=== PATIENT | female | born 1995 | race Caucasian/White ===

== ENCOUNTER 2019-08-21 11:59 | Outpatient (RCR) | payer OTHER, SELFPAY ==
[2019-08-21 13:39] LABS: Hemoglobin 11.8 g/dL (12.0-15.0)
[2019-08-21 13:52] LABS: Glucose 1 Hour PP 50gm Dose 79 mg/dL
[2019-08-21 14:33] LABS: HIV 1/2 Ab P24 Ag Result Negative (Negative)
[2019-08-21 16:07] LABS: Rapid Plasma Reagin Non-Reactive (NonReactive)
[2019-08-24] MEDS: RHO(D) IMMUNE GLOBULIN 300 MCG SYRINGE IM (10:07)
== END 2019-11-19 23:59 | disposition home or self-care (01) ==
LOC: ANHLAB 11:59
PROVIDERS: Visit Provider Advanced Practice Midwife
DX: Z36.89 Encounter for other specified antenatal screening (principal); Z29.13 Encounter for prophylactic Rho(D) immune globulin; O36.0990 Maternal care for other rhesus isoimmunization, unspecified trimester, not applicable or unspecified; Z3A.00 Weeks of gestation of pregnancy not specified
CPT/HCPCS: 36415; 82947; 85014; 85018; 86592; 86703; 86900; 86901; 90384; 96372; G0432; J2790

== ENCOUNTER 2019-09-21 12:41 | Outpatient (CLI) | payer OTHER, SELFPAY ==
--- NOTE | ~2019-09-21 | US_ITS ---
US renal BI DATE: 09/21/2019 13:27 INDICATION: History of kidney calculus. Patient is 32 weeks . TECHNIQUE: Real-time imaging of kidneys and urinary bladder COMPARISON: None FINDINGS: Right kidney measures approximately 10.5 cm length, left kidney approximately 10.7 cm lengt h. No renal mass lesion or hydronephrosis is evident. Bilateral ureteral jets are identified on color flow imaging of the bladder. No bladder mass lesion is evident. IMPRESSION: No significant abnormality Ultrasound is not sensitive for detection of kidney stones. However, there is no evidence of hydronep hrosis and there are bilateral ureteral jets in the urinary bladder. Reviewed, dictated and finalized at [facility]. Reviewed, dictated and finalized at location [facility]. IMPRESSION: No significant abnormality Ultrasound is not sensitive for detection of kidney stones. However, there is n o evidence of hydronephrosis and there are bilateral ureteral jets in the urina ry bladder.
== END 2019-09-21 12:42 | disposition home or self-care (01) ==
LOC: ANHIMG 12:46
PROVIDERS: PCP Advanced Practice Midwife; Visit Provider Advanced Practice Midwife
DX: Z87.442 Personal history of urinary calculi (principal)
CPT/HCPCS: 76775

== ENCOUNTER 2019-10-12 12:58 | Outpatient (CLI) | payer OTHER, SELFPAY ==
[2019-10-12] VITALS (8 sets, daily range): BP systolic 114–124; BP diastolic 75–98; PULSE 92–113; TEMP 37.4; BMI 32.0
[2019-10-12 13:44] LABS: Basophils Absolute Auto 0.1 K/mm3 (0.0-0.1); Basophils Percent Auto 0.5 % (0.2-1.2); Eosinophils Absolute Auto 0.1 K/mm3 (0-0.3); Hematocrit 34.6 % (37.0-47.0); Hemoglobin 10.8 g/dL (12.0-15.0); Immature Granulocyte Absolute 0.08 K/mm3 (0.00-0.031); Immature Granulocyte Percent A 0.6 % (0-0.5); Lymphocytes Percent Auto 12.7 % (18.3-44.2); Mean Corpuscular HGB Conc 31.2 g/dl (32-36); Mean Corpuscular Hemoglobin 26.6 pg (26-34); Mean Corpuscular Volume 85.2 fl (80-100); Mean Platelet Volume 12.6 fl (7.4-10.4); Monocytes Absolute Auto 0.8 K/mm3 (0.1-0.6); Monocytes Percent Auto 6.3 % (2.6-8.5); Neutrophils Absolute Auto 10.5 K/mm3 (1.3-6.7); Neutrophils Percent Auto 78.9 % (45.5-73.1); Platelet Count Result 305 k/mm3 (150-375); Red Blood Count 4.06 M/mm3 (4.2-5.4); Red Cell Distribution Width 13.3 % (11.5-14.5); White Blood Count 13.4 K/mm3 (4.5-10.0)
[2019-10-12 13:49] LABS: Add Urine Microscopic? YES; Appearance Urine Clear (Clear); Bacteria Urine Trace /hpf; Bilirubin Urine Negative (Negative); Blood Urine 2+ (Negative); Color Urine Yellow (Yellow); Glucose Urine UA Negative (Negative); Ketones Urine Negative (Negative); Leukocyte Esterase Ur 1+ LEU/UL (Negative); Mucus Urine Rare /lpf; Nitrate Urine Negative (Negative); Protein Urine Negative (Negative); RBC Urine >75 /hpf (0-2); Specific Grav Ur 1.017 (1.001-1.035); Squamous Epithelial Cell Urine Moderate /hpf (Few)
[2019-10-12 13:50] LABS: Creatinine Urine 113.3 mg/dL; Total Protein Urine Random 13 mg/dL
[2019-10-12 13:55] LABS: Alanine Aminotransferase 10 U/L (4-35); Albumin Level 3.3 g/dL (3.5-5.1); Alkaline Phosphatase 211 U/L (38-126); Aspartate Amino Transferase 19 U/L (14-36); Bilirubin,Total 0.2 mg/dL (0.2-1.3); Blood Urea Nitrogen 6 mg/dL (7-17); Calcium 8.8 mg/dL (8.4-10.2); Carbon Dioxide 20 mmol/L (22-30); Chloride 108 mmol/L (98-107); Estimated Glomerular Filt Rate > 60; Glucose 102 mg/dL (65-105); Potassium 3.7 mmol/L (3.4-5.0); Sodium 135 mmol/L (137-145); Uric Acid 5.3 mg/dL (2.5-7.5)
--- NOTE | 2019-10-12 14:50 | PC.NURSE ---
Essence Ernst CNM informed of BP's, reactive NST, but toco was left on due to contractions ( pt is 35 3/7 wks) and having more than 6 contractions per hour. CNM given lab results including blood in UA, and informed SVE closed, 60-70 % effaced and -1 station. Pt has had an increase in urinary frequency in the last week with some burning a couple of days ago. Orders for discharge received. CNM is calling in Keflex 500 mg po BID x's 5 days and pt to continue taking the Fioricet she has every 6-8 hrs as needed for headache.
== END 2019-10-12 15:10 | disposition home or self-care (01) ==
LOC: ANHOBOP 13:07 → ANHOBPP 13:08
PROVIDERS: PCP Advanced Practice Midwife; Visit Provider Obstetrics & Gynecology
DX: O14.90 Unspecified pre-eclampsia, unspecified trimester (principal); Z3A.00 Weeks of gestation of pregnancy not specified
CPT/HCPCS: 36415; 59025; 80053; 81001; 82570; 84156; 84550; 85025; 87086; 87088; 99199

== ENCOUNTER 2019-11-06 18:06 | Inpatient (IN) | payer OTHER, SELFPAY ==
[2019-11-06] VITALS (16 sets, daily range): BP systolic 84–119; BP diastolic 51–83; PULSE 77–93; TEMP 37.2; BMI 32.3
--- NOTE | 2019-11-06 18:31 | LDADM ---
This patient, Cullen Frias, was admitted to Labor/Delivery/Recovery 105 on 11/06/19 at 18:06. Plans for labor, pain management and were discussed with patient. Patient/family oriented to hospital policies and general routines including ID bracelet, bed and alarms, visiting hours, pain management, procedures, bathroom and other care routines, personal items, smoking policy, room service/diet and guest tray routines, infant security routines, and visiting hours. Patient/Family are encouraged to report perceived risks to care and to ask questions if they do not understand what they are told or what they should do. See OBIX for further documentation.
[2019-11-06 19:07] LABS: Basophils Absolute Auto 0.1 K/mm3 (0.0-0.1); Basophils Percent Auto 0.5 % (0.2-1.2); Eosinophils Absolute Auto 0.1 K/mm3 (0-0.3); Eosinophils Percent Auto 0.8 % (0-4.4); Hemoglobin 10.9 g/dL (12.0-15.0); Immature Granulocyte Absolute 0.06 K/mm3 (0.00-0.031); Immature Granulocyte Percent A 0.5 % (0-0.5); Immature Platelet Fraction Pct 10.1 % (0.9-11.2); Lymphocytes Absolute Auto 1.88 K/mm3 (0.9-3.2); Lymphocytes Percent Auto 14.5 % (18.3-44.2); Mean Corpuscular HGB Conc 31.1 g/dl (32-36); Mean Corpuscular Hemoglobin 25.3 pg (26-34); Mean Corpuscular Volume 81.4 fl (80-100); Mean Platelet Volume 13.5 fl (7.4-10.4); Monocytes Absolute Auto 0.9 K/mm3 (0.1-0.6); Monocytes Percent Auto 6.8 % (2.6-8.5); Neutrophils Percent Auto 76.9 % (45.5-73.1); Platelet Count Result 299 k/mm3 (150-375); Red Cell Distribution Width 14.4 % (11.5-14.5); White Blood Count 12.9 K/mm3 (4.5-10.0)
[2019-11-06] MEDS: DINOPROSTONE 10 MG VAG INSERT VAGINAL (19:16)
[2019-11-07] VITALS (247 sets, daily range): BP systolic 87–138; BP diastolic 50–101; PULSE 61–154; TEMP 36.2–38.2; O2SAT 81–100
[2019-11-07 07:32] LABS: Rapid Plasma Reagin Non-Reactive (NonReactive)
[2019-11-07] MEDS: LACTATED RINGERS 1,000 ML 125 ML IV CONT ×2 (07:34→10:35)
[2019-11-07] MEDS: OXYTOCIN 30 UNITS/NS 500 ML 30 UNITS/500 ML BAG 6 UNITS IV CONT (07:35)
--- NOTE | 2019-11-07 07:52 | WPDOBADMIT ---
Obstetrics - Admit Note Admission Note: record reviewed. No pertinent additions to the history and/or any subsequent changes in the physical findings that are not consistent with the expected course of the were found.EIL at 39 weeks, no complications Additions to the history and/or subsequent changes in the physical findings follow. None.
--- NOTE | 2019-11-07 10:45 | WPDANESEPP ---
Anes - Eval Pre Procedure Procedure: Labor Epidural Date/Time: 11/07/19 10:45 Surgeon: Sita Preop Diagnosis: Labor Pain Pre Op Diagnosis: Induction of Labor Patient Data Age: 24 Gender: F Height: 5 ft 6 in Weight: 91 kg Last Vital Signs Temp 37.3 C 11/07/19 09:30 Pulse 97 11/07/19 10:31 BP 132/85 11/07/19 10:31 Allergies Allergy/AdvReac Type Severity Reaction Status Date / Time No Known Allergies Allergy Verified 10/12/19 15:05 Home Medications Medication Instructions Recorded Confirmed Type acetaminophen 1,000 mg PO Q6H PRN #50 tablet 04/10/19 10/17/19 Rx vtfqhgrmrg-vvsbiireuxbwm-snmq 1 tablet PO Q6H PRN 10/12/19 10/17/19 History Laboratory Tests 11/06/19 11/06/19 11/06/19 18:59 18:59 18:59 WBC 12.9 K/mm3 H K/mm3 (4.5-10.0) RBC 4.30 M/mm3 M/mm3 (4.2-5.4) Hgb 10.9 g/dL L g/dL (12.0-15.0) Hct 35.0 % L % (37.0-47.0) MCV 81.4 fl fl (80-100) MCH 25.3 pg L pg (26-34) MCHC 31.1 g/dl L g/dl (32-36) RDW 14.4 % % (11.5-14.5) Plt Count 299 k/mm3 k/mm3 (150-375) MPV 13.5 fl H fl (7.4-10.4) Immature Gran % (Auto) 0.5 % % (0-0.5) Neut % (Auto) 76.9 % H % (45.5-73.1) Lymph % (Auto) 14.5 % L % (18.3-44.2) [place] % (Auto) 6.8 % % (2.6-8.5) Eos % (Auto) 0.8 % % (0-4.4) Baso % (Auto) 0.5 % % (0.2-1.2) Lymph # (Auto) 1.88 K/mm3 K/mm3 (0.9-3.2) [place] # (Auto) 0.9 K/mm3 H K/mm3 (0.1-0.6) Eos # (Auto) 0.1 K/mm3 K/mm3 (0-0.3) Baso # (Auto) 0.1 K/mm3 K/mm3 (0.0-0.1) Abs Immat Gran (auto) 0.06 K/mm3 H K/mm3 (0.00-0.031) Absolute Neuts (auto) 10.0 K/mm3 H K/mm3 (1.3-6.7) Absolute Nucleated RBC 0.0 K/mm3 K/mm3 (0.0-0.012) Nucleated RBC % 0.0 % % (0.0-0.2) % Immature Plt Fraction 10.1 % % (0.9-11.2) RPR Non-reactive (NonReactive) Blood Type O Negative Antibody Screen Negative : gestational age (DANNY 11/13/19) Patient hx anesthesia problems: none Family hx anesthesia problems: none PMFSH Past Medical History Medical History Anxiety Bronchitis Fracture rt shoulder, lt elbow Migraines Rib fracture Surgical History Surgical History H/O hernia repair with stent History of kidney surgery kidney reflux surgery Family History Family History Sibling Hypertension Heart disease Asthma Diabetes mellitus Father Hypertension Social History Social History Smoking status: Never smoker Second hand tobacco smoke exposure: No Alcohol intake: never Substance use: never Gender identity (if verbalized by the patient): Female Spiritual care concerns: No Exam Day of Procedure 11/07/19 10:45 Patient weight: normal Heart: regular rate and rhythm Lungs: normal air movement Airway: Mallampati scale class II Neurological: alert and oriented
--- NOTE | 2019-11-07 12:37 | PM.OBPNLAB ---
Pain Control Date/time seen: 11/07/19 12:37 AROM, minimal fluid, IUPC and FSE placed, blood in IUPC catheter, easily flushed, FHR category 1
[2019-11-08] VITALS (25 sets, daily range): BP systolic 51–129; BP diastolic 43–89; PULSE 80–137; RESP 16–18; TEMP 37.1–38.4; O2SAT 98–100
[2019-11-08] MEDS: MISOPROSTOL 200 MCG TABLET 1000 MCG (02:06)
--- NOTE | 2019-11-08 02:16 | PM.OBPRVD ---
OB - Delivery Note Procedure Delivery date: 11/08/19 Procedure: vaginal delivery Induction method: AROM and per pitocin protocol Delivery monitor: external FHT, external uterine, internal FHT and internal uterine Route of delivery: Laceration description: None Estimated blood loss (mL): 210 Anesthesia type: Epidural Disposition: other () Narrative: oozing on pelvic floor, right wall, not able to suture, hemaderm placed and hemostatic, mother and baby in stable condition [place] Baby Date of : 11/08/19 Time of : 01:56 Weeks of gestation at delivery: 39 Infant gender: Male Weight (pounds): 7 Weight (ounces): 14 presentation: vertex position: Left Occiput Anterior Placenta delivery description: Spontaneous cord vessel description: 3 Vessels, Nuchal Cord, Reduced, Clamped/Cut and Around Extremity x1 score one minute: 8 score five minutes: 9
[2019-11-08] MEDS: OXYTOCIN 30 UNITS/NS 500 ML 30 UNITS/500 ML BAG 125 UNITS IV CONT (02:30)
[2019-11-08] MEDS: IBUPROFEN 600 MG TABLET PO ×3 (02:33→18:53)
[2019-11-08] MEDS: WITCH HAZEL 40 PADS 1 PAD TOPICAL (04:11)
[2019-11-08] MEDS: BENZOCAINE 20% AER SPR (*SP) 56 GM CAN 1 SPRAY TOPICAL (04:11)
--- NOTE | 2019-11-08 04:41 | OBPPTRN ---
Patient transferred to post room #279 via wheelchair. Support person present. Oriented to unit, room, information board, rooming in, admission packet and security measures. Patient verbalizes understanding. with patient.
[2019-11-08] MEDS: ACETAMINOPHEN 325 MG TABLET 650 MG PO ×2 (07:31→16:32)
--- NOTE | 2019-11-08 08:10 | PC.NURSE ---
Consulted with patient, mother states is sleepy and requires the nipple shield to latch for all feedings. Reviewed infant feeding cues, frequencies, duration of feedings, feeding elimination flow sheet, and signs of adequate intake. Demonstrated stimulation techniques to wake for feeding. Assisted with infant to breast. Reviewed positioning/alignment football, holding breast in C hold and guided asymmetrical latch on. Discussed nipple shield precautions and possible complications. Instructions given on application and cleaning of shield.Patient able to return demonstration on proper application of shield. Discussed the need to initiate pumping if infant continues to nurse with the shield. Patient verbalizes understanding. Infant was able to latch correctly. Infant nursed sleepily with a few bursts and occasional swallowing noted. Mother needs minimal stimulation and leaking good amounts of colostrum. When infant switched to other breast shield filled with colostrum. Advised to stimulate to keep infant awake and nursing for increased intake and maintaining deep latch. Reviewed signs of a correct latch, effective nursing and suck swallow ratio. was able to maintain latch without discomfort to mother. Nipple care reviewed. Instructed mother to call out for RN assistance if she is unable to latch for feeding or she has discomfort with nursing. Instructed feeding should be initiated three hours from start of last feeding or if feeding cues are noted before. Mother voiced understanding of information shared.
--- NOTE | 2019-11-08 09:16 | WPDANLDPN2 ---
Anes-Prog Note L&D Date/Time: 11/08/19 09:16 Comfortable throughout: labor and delivery Neuraxial method: epidural Epidural/Spinal procedure site: clean & non-tender Neuro status: Neuro function grossly intact. Respiratory status: normal Airway patency: baseline Mental status: baseline Post-Op hydration status: normal Vital Signs: Last Vital Signs Temp 99.2 F 11/08/19 06:50 Pulse 104 H 11/08/19 06:50 Resp 18 11/08/19 06:50 BP 127/78 11/08/19 06:50 Pulse Ox 98 11/08/19 06:50 I/O: Intake & Output 11/07/19 11/08/19 11/08/19 23:59 07:59 15:59 Intake Total 100 1500 Output Total 124 Balance 100 1376 Post-procedural complaints: none Patient feedback: Patient satisfied with anesthetic care.
[2019-11-08] MEDS: MULTIVIT/MIN/PREN/FOL AC/IRON TABLET 1 TAB PO (12:25)
--- NOTE | 2019-11-08 13:20 | PC.NURSE ---
Mother called out for assist with feeding. Infant continues with sleepiness not waking for feedings. Assisted with infant to breast. Reviewed positioning/alignment football, holding breast in C hold and guided asymmetrical latch on. Infant was able to latch correctly. nursed sleepily with a few bursts and occasional swallowing noted. Mother needs minimal stimulation and leaking good amounts of colostrum. When switched to other breast shield filled with colostrum. Advised to stimulate to keep infant awake and nursing for increased intake and maintaining deep latch. Reviewed signs of a correct latch, effective nursing and suck swallow ratio. Infant was able to maintain latch without discomfort to mother. Nipple care reviewed. Instructed mother to call out for RN assistance if she is unable to latch infant for feeding or she has discomfort with nursing. Instructed feeding should be initiated three hours from start of last feeding or if feeding cues are noted before. Mother voiced understanding of information shared.
--- NOTE | 2019-11-08 15:30 | PC.NURSE ---
Mother called out and states she would like to supplement. Suggested mother continue to put to breast each feeding, then supplement and pump.
[2019-11-08] MEDS: DOCUSATE SODIUM 100 MG CAPSULE PO (16:33)
--- NOTE | 2019-11-08 16:42 | PC.NURSE ---
Breast pump provided due to her wishes to pump and bottle feed. Instructions given on breast pump care and usage, pumping schedule, nipple care, and collection and storage of breast milk. Encouraged [id number], breast massage and manual expression to stimulate supply. Assessed patient for correct flange size, placement and draw. Patient verbalizes and demonstrates understanding of instructions.
[2019-11-09] MEDS: IBUPROFEN 600 MG TABLET PO (03:46)
[2019-11-09 04:48] LABS: Hematocrit 29.7 % (37.0-47.0); Hemoglobin 9.3 g/dL (12.0-15.0)
[2019-11-09 07:35] VITALS: BP 118/85; PULSE 74; RESP 16; TEMP 36.5; O2SAT 99
--- NOTE | 2019-11-09 07:55 | PM.OBDSVD ---
OB - DS: Summary OB Procedures : None OB Procedures Intrapartum: Spontaneous Vag Delivery OB Procedures: : None Time Spent with Patient Time attestation: Total time spent providing and/or coordinating discharge services: Exam Const: General: comfortable Resp: Effort & Inspection: normal respiratory effort Psych: Appearance: grossly normal Affect: normal affect DS: Data Data Completed and Pending Labs on day of discharge: Labs from last 24 hours 11/09/19 11/09/19 03:41 03:41 Hgb 9.3 L Hct 29.7 L Blood Type O Negative Antibody Screen Negative Screen Pending Baby's Blood Type O pos Baby's SHILO Negative Doses of RhIg Required Pending Discharge Plan Discharge Attending physician on discharge: Ritchie Buckner Discharging Clinician: Rossy Ernst Patient Disposition: Home, Self-Care Activity: pelvic rest Diet: regular Patient Instructions: Antibiotic Form Stand Alone Forms: General Discharge Information Follow-up/Referrals: Rossy Ernst CNM [Primary Care Provider] - 4 Weeks Discharge Medications: New ibuprofen 600 mg Tablet 600 mg PO Q6H PRN (Reason: Cramping) Qty: 30 RF: 0 Continued acetaminophen 500 mg tablet 1,000 mg PO Q6H PRN (Reason: pain) Qty: 50 RF: 0 jsyynibsoc-ecvrynggobqwb-zdma 50-325-40 mg tablet 1 tablet PO Q6H PRN (Reason: Headache) RF: 0 Date of admission: 11/06/19 18:06 Primary Care Provider: Rossy Ernst Admitting Provider: Ritchie Buckner Attending physician on admission: Ritchie Buckner
--- NOTE | 2019-11-09 09:00 | PC.NURSE ---
Consult with pt., mother reports she has chosen to pump and bottle feed due difficulties with latching and not effectively nursing. Stressed regular pumping of every three hours for 15-20 min. until milk is established, then follow feeding schedule. Mother is feeding as required and waking infant to feed if needed. Infant is currently meeting outcomes for weight, output, jaundice and feeding frequencies. Mother states she feels confident to continue feeding choice of pump and bottle feeding at home. Reviewed transition to breast milk, signs of adequate intake, and engorgement/relief. Instructed to call ICP if intake/output less than required. Reviewed regular medications mother is taking. Information provided per Maida. Reviewed community resources on the [facility] website and in the Mom/Baby guide. Information on outpatient services provided. Mother has no further questions at this time. Assisted mother with a pump thru her insurance.
[2019-11-09] MEDS: POLYSACCHARIDE IRON COMPLEX 150 MG CAPSULE PO (09:28)
[2019-11-09] MEDS: DOCUSATE SODIUM 100 MG CAPSULE PO (09:28)
[2019-11-09] MEDS: MULTIVIT/MIN/PREN/FOL AC/IRON TABLET 1 TAB PO (09:28)
--- NOTE | 2019-11-09 10:11 | WPDANLDPN2 ---
Anes-Prog Note L&D Date/Time: 11/09/19 10:11 Comfortable throughout: labor and delivery Neuraxial method: epidural Epidural/Spinal procedure site: clean & non-tender Neuro status: Neuro function grossly intact. Respiratory status: normal Airway patency: baseline Mental status: baseline Post-Op hydration status: normal Vital Signs: Last Vital Signs Temp 36.5 C 11/09/19 07:35 Pulse 74 11/09/19 07:35 Resp 16 11/09/19 07:35 BP 118/85 11/09/19 07:35 Pulse Ox 99 11/09/19 07:35 Pain score (VAS): 0/10. patient resting in bed at time of assessment, appears comfortable. Post-procedural complaints: none Patient feedback: Patient satisfied with anesthetic care.
[2019-11-09] MEDS: RHO(D) IMMUNE GLOBULIN 300 MCG SYRINGE IM (11:12)
--- NOTE | 2019-11-09 11:30 | PC.NURSE ---
Patient instructed to view the discharge video Mother & Baby Care, The First Two Weeks online. Patient was given the opportunity and encouraged to ask questions. Patient verbalized understanding of information shared and has been given the mother/baby guide for home reference.
[2019-11-12 11:07] VITALS: BP 127/94; PULSE 89; RESP 20; TEMP 36.9; O2SAT 100
== END 2019-11-09 13:05 | disposition home or self-care (01) | DRG 560 ==
LOC: ANHLDR 18:11 → ANHOB2 11-08 04:42
PROVIDERS: Admitting Provider Obstetrics & Gynecology; PCP Advanced Practice Midwife; Visit Provider Obstetrics & Gynecology
DX: O76 Abnormality in fetal heart rate and rhythm complicating labor and delivery (principal); O75.2 Pyrexia during labor, not elsewhere classified; O69.82X0 Labor and delivery complicated by other cord entanglement, without compression, not applicable or unspecified; Z3A.39 39 weeks gestation of pregnancy; Z37.0 Single live birth
CPT/HCPCS: 36415; 85014; 85018; 85025; 85055; 85461; 86592; 86850; 86900; 86901; 90384; A9270; J0131; J2590; J2790; J2795; J3010; J7120

== ENCOUNTER 2019-11-12 11:59 | Observation (INO) | payer OTHER, SELFPAY ==
[2019-11-12] VITALS (8 sets, daily range): BP systolic 98–136; BP diastolic 77–91; PULSE 77–105
--- NOTE | 2019-11-12 11:58 | OBADM ---
This patient, Cullen Frias, admitted to the OB room OB Post 115 for observation. Patient/family oriented to hospital policies and general routines including ID bracelet, bed and alarms, visiting hours, pain management, procedures, bathroom and other care routines, personal items, smoking policy, room service/diet, and visiting hours. Patient/Family are encouraged to report perceived risks to care and to ask questions if they do not understand what they are told or what they should do.
--- NOTE | 2019-11-12 12:40 | PC.NURSE ---
Called Krysta Delgado CNM with pt status. Lab results and BPs given. Orders received to observe and recheck labs at 1800 and call with results.
[2019-11-12 12:58] LABS: Basophils Absolute Auto 0.1 K/mm3 (0.0-0.1); Basophils Percent Auto 0.5 % (0.2-1.2); Eosinophils Absolute Auto 0.3 K/mm3 (0-0.3); Eosinophils Percent Auto 1.8 % (0-4.4); Hematocrit 34.1 % (37.0-47.0); Hemoglobin 10.3 g/dL (12.0-15.0); Immature Granulocyte Absolute 0.12 K/mm3 (0.00-0.031); Immature Granulocyte Percent A 0.8 % (0-0.5); Mean Corpuscular HGB Conc 30.2 g/dl (32-36); Mean Corpuscular Hemoglobin 25.2 pg (26-34); Mean Corpuscular Volume 83.6 fl (80-100); Monocytes Absolute Auto 0.8 K/mm3 (0.1-0.6); Monocytes Percent Auto 5.6 % (2.6-8.5); Neutrophils Absolute Auto 12.5 K/mm3 (1.3-6.7); Neutrophils Percent Auto 83.3 % (45.5-73.1); Platelet Count Result 290 k/mm3 (150-375); Red Blood Count 4.08 M/mm3 (4.2-5.4); Red Cell Distribution Width 15.1 % (11.5-14.5)
[2019-11-12 13:08] LABS: Alanine Aminotransferase 44 U/L (4-35); Albumin Level 3.1 g/dL (3.5-5.1); Alkaline Phosphatase 190 U/L (38-126); Aspartate Amino Transferase 43 U/L (14-36); Bilirubin,Total 0.6 mg/dL (0.2-1.3); Blood Urea Nitrogen 8 mg/dL (7-17); Calcium 8.6 mg/dL (8.4-10.2); Carbon Dioxide 25 mmol/L (22-30); Chloride 108 mmol/L (98-107); Estimated Glomerular Filt Rate > 60; Glucose 89 mg/dL (65-105); Sodium 136 mmol/L (137-145); Uric Acid 6.4 mg/dL (2.5-7.5)
--- NOTE | 2019-11-12 16:35 | PC.NURSE ---
Called Krysta Delgado CNM to request pain meds for headache. Orders received.
[2019-11-12] MEDS: ACETAMINOPHEN 500 MG TABLET 1000 MG PO (16:47)
[2019-11-12 18:20] LABS: Mean Platelet Volume 12.3 fl (7.4-10.4); Platelet Count Result 296 k/mm3 (150-375)
[2019-11-12 18:32] LABS: Alanine Aminotransferase 41 U/L (4-35); Alkaline Phosphatase 170 U/L (38-126); Aspartate Amino Transferase 39 U/L (14-36); Bilirubin,Total 0.6 mg/dL (0.2-1.3); Blood Urea Nitrogen 8 mg/dL (7-17); Calcium 8.3 mg/dL (8.4-10.2); Carbon Dioxide 27 mmol/L (22-30); Chloride 108 mmol/L (98-107); Estimated Glomerular Filt Rate > 60; Glucose 91 mg/dL (65-105); Potassium 3.6 mmol/L (3.4-5.0); Sodium 139 mmol/L (137-145); Uric Acid 6.7 mg/dL (2.5-7.5)
--- NOTE | 2019-12-07 12:04 | P.PNOB_ITS ---
OB - Triage/Final Diagnosis Evaluation Laboratory results: Laboratory Tests 11/12/19 11/12/19 11/12/19 12:41 12:41 18:15 WBC 15.0 H RBC 4.08 L Hgb 10.3 L Hct 34.1 L MCV 83.6 MCH 25.2 L MCHC 30.2 L RDW 15.1 H Plt Count 290 296 MPV 12.0 H 12.3 H Immature Gran % (Auto) 0.8 H Neut % (Auto) 83.3 H Lymph % (Auto) 8.0 L [place] % (Auto) 5.6 Eos % (Auto) 1.8 Baso % (Auto) 0.5 Lymph # (Auto) 1.20 [place] # (Auto) 0.8 H Eos # (Auto) 0.3 Baso # (Auto) 0.1 Abs Immat Gran (auto) 0.12 H Absolute Neuts (auto) 12.5 H Absolute Nucleated RBC 0.0 Nucleated RBC % 0.0 Sodium 136 L Potassium 4.0 Chloride 108 H Carbon Dioxide 25 BUN 8 Creatinine 0.60 L Estim Creat Clear Calc Not Reportable Estimated GFR > 60 Glucose 89 Uric Acid 6.4 Calcium 8.6 Total Bilirubin 0.6 AST 43 H ALT 44 H Alkaline Phosphatase 190 H Total Protein 6.0 L Albumin 3.1 L 11/12/19 18:15 WBC RBC Hgb Hct MCV MCH MCHC RDW Plt Count MPV Immature Gran % (Auto) Neut % (Auto) Lymph % (Auto) [place] % (Auto) Eos % (Auto) Baso % (Auto) Lymph # (Auto) [place] # (Auto) Eos # (Auto) Baso # (Auto) Abs Immat Gran (auto) Absolute Neuts (auto) Absolute Nucleated RBC Nucleated RBC % Sodium 139 Potassium 3.6 Chloride 108 H Carbon Dioxide 27 BUN 8 Creatinine 0.60 L Estim Creat Clear Calc Not Reportable Estimated GFR > 60 Glucose 91 Uric Acid 6.7 Calcium 8.3 L Total Bilirubin 0.6 AST 39 H ALT 41 H Alkaline Phosphatase 170 H Total Protein 6.0 L Albumin 3.0 L Final Diagnosis (1) Headache: Code(s): R51 - Headache Status: Acute
== END 2019-11-12 19:00 | disposition home or self-care (01) ==
LOC: ANHOBOP 12:14 → ANHOBPP 12:15 → ANHOBOP 15:49 → ANHOBPP 15:49
PROVIDERS: Advanced Practice Midwife; Admitting Provider Obstetrics & Gynecology; PCP Advanced Practice Midwife; Visit Provider Obstetrics & Gynecology
DX: R51 Headache (principal)
CPT/HCPCS: 36415; 80053; 84550; 85025; 85049; A9270; G0378; G0379

== ENCOUNTER 2020-05-14 15:11 | Emergency (ER) | payer OTHER, SELFPAY ==
[2020-05-14 15:14] VITALS: BP 137/85; PULSE 106; RESP 18; TEMP 36.5; O2SAT 100
--- NOTE | 2020-05-14 15:41 | ED.FEMALEGU ---
HPI - Female Genitourinary General Chief complaint: Urogenital-Female Stated complaint: kidney stone/ Time Seen by Provider: 05/14/20 15:33 Source: patient Mode of arrival: ambulatory Limitations: no limitations History of Present Illness HPI Narrative: 24 years old white female, 13 weeks presents with left lower quadrant pain radiating to left lower back, patient is telling me that renal ultrasound was done at her [employer] office prior to coming to the emergency room which showed large kidney stone in the urinary bladder. Currently patient feeling much better. Patient denies any fever, chills, nausea, vomiting or urinary symptoms. Patient reported having vaginal discharge which is normal during her . Renal ultrasound which was done at Dr. Herring office today showed bladder stone. Unable to GET access TO THE image or to the report. Related Data Home Medications Medication Instructions Recorded Confirmed No Home Medications 05/14/20 05/14/20 Allergies Allergy/AdvReac Type Severity Reaction Status Date / Time No Known Allergies Allergy Verified 05/14/20 15:33 Review of Systems Review of Systems: Narrative: CONSTITUTIONAL: Denies fever, chills, or sweats. EYES: Denies visual changes, redness, or discharge. ENT: Denies rhinorrhea, congestion, sore throat, or otalgia. CARDIOVASCULAR: Denies chest pain, palpitations, or edema. RESPIRATORY: Denies cough or dyspnea. GASTROINTESTINAL: Left lower quadrant pain GENITOURINARY: Denies dysuria or hematuria. SKIN: Denies rash or itching. MUSCULOSKELETAL: Denies back pain, joint pain, or myalgia. NEUROLOGIC: Denies headache, numbness, or weakness. PSYCHIATRIC: Denies anxiety or depression. [facility] Past Medical History Medical History (Updated 05/14/20 @ 16:47 by Dalila Mooney MD) Anxiety Bronchitis Fracture rt shoulder, lt elbow Migraines Rib fracture Surgical History Surgical History H/O hernia repair with stent History of kidney surgery kidney reflux surgery Family History Family History Sibling Hypertension Heart disease Asthma Diabetes mellitus Father Hypertension Social History Social History Smoking status: Never smoker Second hand tobacco smoke exposure: No Alcohol intake: never Substance use: never Gender identity (if verbalized by the patient): Female Spiritual care concerns: No Exam Narrative: Exam Narrative: General appearance: Well-developed, well-nourished Skin: Normal color Head: Normocephalic, nontraumatic Eyes: Clear conjunctiva ENT: Oropharynx normal, ears normal, nose normal Neck: Supple, nontender Chest and respiratory: Airway patent, no respiratory distress, no accessory muscle use Heart: Regular rate/rhythm Abdomen: Soft, mild tenderness left lower quadrant. No organomegaly, quiet bowel sounds Vascular: Normal peripheral pulses, normal capillary refill. Musculoskeletal: Normal range of motion, nontender back Neurologic: Alert and oriented ?3, [employer] is normal as tested, no gross motor deficit Course Course Emergency Course: Stable Consultations Consultation #1: DR HERRING. Outpatient follow-up Unable to get hold of the ultrasound reports which was done today. Date: 05/14/20 Time: 16:48 Consultation #2: DR MAN Patient can go home and follow-up with Dr. Cummings as outpatient. Nothing serious or urgent at this time. Date: 05/14/20 Time: 18:05 Vital Signs Vital signs: Vital Signs Temperature 36.5 C 05/14/20 15:14 Pulse Rate 106 H 05/14/20 15
[2020-05-14 16:02] LABS: Basophils Percent Auto 0.3 % (0.2-1.2); Eosinophils Absolute Auto 0.2 K/mm3 (0-0.3); Eosinophils Percent Auto 1.4 % (0-4.4); Hemoglobin 13.1 g/dL (12.0-15.0); Immature Granulocyte Absolute 0.05 K/mm3 (0.00-0.031); Immature Granulocyte Percent A 0.3 % (0-0.5); Lymphocytes Absolute Auto 2.37 K/mm3 (0.9-3.2); Lymphocytes Percent Auto 16.5 % (18.3-44.2); Mean Corpuscular HGB Conc 32.8 g/dl (32-36); Mean Corpuscular Hemoglobin 27.9 pg (26-34); Mean Corpuscular Volume 85.1 fl (80-100); Mean Platelet Volume 11.8 fl (7.4-10.4); Monocytes Absolute Auto 0.8 K/mm3 (0.1-0.6); Monocytes Percent Auto 5.8 % (2.6-8.5); Neutrophils Absolute Auto 10.9 K/mm3 (1.3-6.7); Neutrophils Percent Auto 75.7 % (45.5-73.1); Platelet Count Result 340 k/mm3 (150-375); Red Cell Distribution Width 13.8 % (11.5-14.5); White Blood Count 14.4 K/mm3 (4.5-10.0)
[2020-05-14 16:12] LABS: Add Urine Microscopic? YES; Amorphous Sediment Urine Few; Appearance Urine Cloudy (Clear); Bacteria Urine Trace /hpf; Bilirubin Urine Negative (Negative); Blood Urine Negative (Negative); Color Urine Yellow (Yellow); Glucose Urine UA Negative (Negative); Ketones Urine Negative (Negative); Leukocyte Esterase Ur Trace LEU/UL (Negative); Mucus Urine Rare /lpf; Nitrate Urine Negative (Negative); Protein Urine Negative (Negative); Specific Grav Ur 1.016 (1.001-1.035); Squamous Epithelial Cell Urine Occasional /hpf (Few); WBC Urine 0-3 /hpf
[2020-05-14 16:13] LABS: Anion Gap 6 mmol/L (8-16); Blood Urea Nitrogen 9 mg/dL (7-17); Calcium 9.5 mg/dL (8.4-10.2); Carbon Dioxide 25 mmol/L (22-30); Chloride 104 mmol/L (98-107); Estimated CRCL calculation 132 ml/min; Estimated Glomerular Filt Rate > 60; Glucose 94 mg/dL (65-105); Potassium 3.8 mmol/L (3.4-5.0); Sodium 135 mmol/L (137-145)
--- NOTE | 2020-05-14 16:59 | PC.NURSE ---
Attempting to locate ultrasound report from Dr. Buckner's office. Radiology unable to locate report or reading. Preparing to contact Dr. Buckner.
--- NOTE | 2020-05-14 17:45 | PC.NURSE ---
Awaiting Dr. Buckner return call, and also contacting urology. Pt updated.
[2020-05-14 18:25] VITALS: BP 129/86; PULSE 114; RESP 18; O2SAT 99
== END 2020-05-14 18:27 | disposition home or self-care (01) ==
PROVIDERS: Emergency Provider Emergency Medicine
DX: O26.892 Other specified pregnancy related conditions, second trimester (principal); R10.32 Left lower quadrant pain; Z3A.13 13 weeks gestation of pregnancy
CPT/HCPCS: 36415; 80048; 81001; 85025; 99283

== ENCOUNTER 2020-05-15 17:27 | Outpatient (CLI) | payer OTHER, SELFPAY ==
--- NOTE | ~2020-05-15 | US_ITS ---
EXAMINATION: US retroperitoneal comp EXAM DATE: 05/15/2020 18:07 INDICATION: Left lower quadrant/flank pain. TECHNIQUE: Multiple grayscale and Doppler images of the kidneys were obtained (by a technologist who performed the scan) and subsequently reviewed. Comparison is made to prior examination from 09/21/2019 . FINDINGS: Right kidney: There is normal contour and echogenicity. It measures 11.2 x 4.4 x 5.1 centimeters. T here are no focal renal lesions identified. There is no hydronephrosis. Left kidney: There is normal contour and echogenicity. It measures 10.8 x 5.4 x 5.0 centimeters. [place] pect nonobstructing kidney stone measuring 6 mm There is no hydronephrosis. Bladder unremarkable. Bilateral ureteral jets confirmed. IMPRESSION: 1. Probable left nephrolithiasis. 2. No hydronephrosis. Reviewed, dictated and finalized at location G. GER PMO
== END 2020-05-15 17:28 | disposition home or self-care (01) ==
PROVIDERS: Visit Provider Advanced Practice Midwife
DX: R10.32 Left lower quadrant pain (principal)
CPT/HCPCS: 76770

== ENCOUNTER 2020-08-29 09:00 | Outpatient (RCR) | payer OTHER, SELFPAY ==
[2020-08-27 15:52] LABS: Hematocrit 34.1 % (37.0-47.0); Hemoglobin 10.4 g/dL (12.0-15.0)
[2020-08-27 16:05] LABS: Glucose 1 Hour PP 50gm Dose 85 mg/dL
[2020-08-27 16:46] LABS: HIV 1/2 Ab P24 Ag Result Negative (Negative)
[2020-08-28 11:58] LABS: Rapid Plasma Reagin Non-Reactive (NonReactive)
[2020-08-29] MEDS: RHO(D) IMMUNE GLOBULIN 300 MCG/2 ML SYRINGE IM (09:22)
== END 2020-11-25 23:59 | disposition home or self-care (01) ==
LOC: ANHLAB 09:00
PROVIDERS: Visit Provider Advanced Practice Midwife
DX: Z29.13 Encounter for prophylactic Rho(D) immune globulin (principal); Z11.4 Encounter for screening for human immunodeficiency virus [HIV]; O36.0130 Maternal care for anti-D [Rh] antibodies, third trimester, not applicable or unspecified; Z3A.00 Weeks of gestation of pregnancy not specified
CPT/HCPCS: 36415; 82947; 85014; 85018; 85461; 86592; 86703; 90384; 96372; G0432; J2790

== ENCOUNTER 2020-09-16 18:10 | Outpatient (CLI) | payer OTHER, SELFPAY ==
[2020-09-16 18:45] VITALS: BP 106/69; PULSE 92
[2020-09-16 19:00] VITALS: BP 106/69; BP 113/73; PULSE 92; PULSE 96
[2020-09-16 19:20] VITALS: BP 106/69; PULSE 92
[2020-09-16 19:42] VITALS: BMI 28.8
[2020-09-16] MEDS: PROCHLORPERAZINE MALEATE 5 MG TABLET 10 MG PO (20:22)
[2020-09-16] MEDS: ACETAMINOPHEN 500 MG TABLET PO (20:24)
== END 2020-09-16 22:05 | disposition home or self-care (01) ==
LOC: ANHOBOP 18:15 → ANHOBPP 18:16
PROVIDERS: Visit Provider Obstetrics & Gynecology
DX: O13.9 Gestational [pregnancy-induced] hypertension without significant proteinuria, unspecified trimester (principal); Z3A.00 Weeks of gestation of pregnancy not specified
CPT/HCPCS: 59025; 99199; A9270

== ENCOUNTER 2020-09-25 08:18 | Observation (INO) | payer OTHER, SELFPAY ==
[2020-09-25 08:32] VITALS: BP 122/75; PULSE 93
[2020-09-25] MEDS: LACTATED RINGERS 1,000 ML 1000 ML IV CONT (09:24)
[2020-09-25] MEDS: MEPERIDINE HCL INJ (*CRX) 50 MG/ML AMPUL 12.5 MG IV PUSH (09:29)
[2020-09-25] MEDS: diphenhydrAMINE HCl INJ 50 MG/ML VIAL 25 MG IV PUSH (09:30)
[2020-09-25] MEDS: METOCLOPRAMIDE HCL INJ 10 MG/2 ML VIAL IV PUSH (09:34)
--- NOTE | 2020-09-25 10:26 | PC.NURSE ---
0830- on unit, informed pt came in for migraine. Pt states she took 2 fioricet and a flexeril last night and woke up feeling worse this morning. Pt is rating her migraine a 10/10. Orders received.
--- NOTE | 2020-09-25 12:33 | PC.NURSE ---
Pt states her migraine pain is down to a 6 from a 10. Pt wants to eat and see if that helps her head before I call
--- NOTE | 2020-09-25 13:42 | PC.NURSE ---
1315-Pt ate lunch and states her head is feeling better and is rating her pain 4 now. She asked for a fioricet and states she wants to go home.
--- NOTE | 2020-10-26 20:09 | PM.OBTRLD ---
OB - Triage/Final Diagnosis Visit Information Comments/Additional reasons for admission: I have assessed the risk for this patient, Cullen Frias, and determined that she would benefit from observation care. Final Diagnosis (1) Headache: Code(s): R51 - Headache Status: Acute
== END 2020-09-25 13:30 | disposition home or self-care (01) ==
LOC: ANHOBOP 08:20 → ANHOBPP 13:21
PROVIDERS: Admitting Provider Obstetrics & Gynecology; Referring Provider Obstetrics & Gynecology; Visit Provider Obstetrics & Gynecology
DX: O26.893 Other specified pregnancy related conditions, third trimester (principal); R51.9 Headache, unspecified; Z3A.33 33 weeks gestation of pregnancy
CPT/HCPCS: 96361; 96374; 96375; 99199; A9270; G0378; G0379; J1200; J2175; J2765; J7120

== ENCOUNTER 2020-10-08 12:03 | Outpatient (CLI) | payer OTHER, SELFPAY ==
[2020-10-08 12:26] VITALS: BP 110/79; PULSE 104; PULSE 106
[2020-10-08 12:30] VITALS: BP 113/83; PULSE 102
--- NOTE | 2020-10-08 12:38 | PC.NURSE ---
Essence Ernst CNM informed of pt's headache since last night. Pt took 1 Fioricet at 0100 this morning and 500 mg Tylenol and FLexeril 5 mg at 0830 this am. Informed of BP's. Order for Fioricet received. CNM doesn't want any labs sent. CNM also informed that pt isn't taking her Ampicillin for a UTI regularly either- her last dose was yesterday morning and she has not idea when she started it.
[2020-10-08 12:45] VITALS: BP 107/73; PULSE 98
[2020-10-08 13:00] VITALS: BP 111/77; PULSE 96
[2020-10-08 13:15] VITALS: BP 112/78; PULSE 99
[2020-10-08 13:30] VITALS: BP 111/75; PULSE 95
--- NOTE | 2020-10-08 14:00 | PC.NURSE ---
Called Essence Ernst CNM with pt status. Informed that pt states that headache is much better and would like to go home. States that she felt some cramping before voiding, but since has decreased. Pt also states that she just started taking her antibiotic for UTI yesterday or today. Instructed to PO hydrated and take antibiotic as prescribed. September D/C home.
== END 2020-10-08 14:05 | disposition home or self-care (01) ==
LOC: ANHOBOP 12:06 → ANHOBPP 12:07
PROVIDERS: Visit Provider Obstetrics & Gynecology
DX: R51.9 Headache, unspecified (principal); O26.899 Other specified pregnancy related conditions, unspecified trimester; Z3A.00 Weeks of gestation of pregnancy not specified
CPT/HCPCS: 59025; 99199; A9270

== ENCOUNTER 2020-10-30 12:15 | Outpatient (CLI) | payer OTHER, SELFPAY ==
[2020-10-30] VITALS (9 sets, daily range): BP systolic 117–128; BP diastolic 75–94; PULSE 92–114
[2020-10-30 12:51] LABS: Basophils Absolute Auto 0.1 K/mm3 (0.0-0.1); Basophils Percent Auto 0.4 % (0.2-1.2); Eosinophils Percent Auto 0.4 % (0-4.4); Hematocrit 35.3 % (37.0-47.0); Hemoglobin 10.1 g/dL (12.0-15.0); Immature Granulocyte Absolute 0.05 K/mm3 (0.00-0.031); Immature Granulocyte Percent A 0.4 % (0-0.5); Lymphocytes Absolute Auto 1.81 K/mm3 (0.9-3.2); Lymphocytes Percent Auto 16.1 % (18.3-44.2); Mean Corpuscular HGB Conc 28.6 g/dl (32-36); Mean Corpuscular Hemoglobin 21.1 pg (26-34); Mean Corpuscular Volume 73.7 fl (80-100); Mean Platelet Volume 11.8 fl (7.4-10.4); Monocytes Absolute Auto 0.7 K/mm3 (0.1-0.6); Monocytes Percent Auto 6.1 % (2.6-8.5); Neutrophils Absolute Auto 8.6 K/mm3 (1.3-6.7); Neutrophils Percent Auto 76.6 % (45.5-73.1); Platelet Count Result 407 k/mm3 (150-375); Red Blood Count 4.79 M/mm3 (4.2-5.4); Red Cell Distribution Width 16.8 % (11.5-14.5); White Blood Count 11.2 K/mm3 (4.5-10.0)
[2020-10-30 13:01] LABS: Alanine Aminotransferase 14 U/L (4-35); Albumin Level 3.3 g/dL (3.5-5.1); Alkaline Phosphatase 184 U/L (38-126); Anion Gap 7 mmol/L (8-16); Aspartate Amino Transferase 24 U/L (14-36); Bilirubin,Total 0.3 mg/dL (0.2-1.3); Blood Urea Nitrogen 6 mg/dL (7-17); Calcium 8.6 mg/dL (8.4-10.2); Carbon Dioxide 22 mmol/L (22-30); Chloride 108 mmol/L (98-107); Estimated Glomerular Filt Rate > 60; Glucose 93 mg/dL (65-105); Potassium 3.7 mmol/L (3.4-5.0); Sodium 137 mmol/L (137-145); Uric Acid 5.7 mg/dL (2.5-7.5)
[2020-10-30 13:02] LABS: Creatinine Urine 41.5 mg/dL; Total Protein Urine Random 15 mg/dL; Ur Ttl Prot Creatinine Ratio 0.36 mg/mg (0-0.20)
[2020-10-30 13:18] LABS: Add Urine Microscopic? YES; Appearance Urine Cloudy (Clear); Bilirubin Urine Negative (Negative); Blood Urine Negative (Negative); Color Urine Yellow (Yellow); Glucose Urine UA Negative (Negative); Ketones Urine Negative (Negative); Leukocyte Esterase Ur 3+ LEU/UL (NEGATIVE); Nitrate Urine Negative (Negative); Protein Urine Negative (Negative); Specific Grav Ur 1.009 (1.001-1.035); Urobilinogen Urine Negative mg/dL (<2.0)
[2020-10-30] MEDS: LACTATED RINGERS 1,000 ML 150 ML IV CONT (13:30)
[2020-10-30] MEDS: diphenhydrAMINE HCl INJ 50 MG/ML VIAL 25 MG IV PUSH (13:31)
[2020-10-30] MEDS: METOCLOPRAMIDE HCL INJ 10 MG/2 ML VIAL IV PUSH (13:33)
--- NOTE | 2020-10-30 14:08 | PC.NURSE ---
Medication orders given by Essence Ernst CNM rather than given by Krysta Delgado CNM. Orders put in under wrong provider by mistake.
--- NOTE | 2020-10-30 14:11 | PC.NURSE ---
[id number]--Phone call to Essence Ernst CNM re: pt's h/a and v.s. Orders received to give IV benadryl and IV reglan, then IVF's of LR at 150cc/hr.
--- NOTE | 2020-10-30 14:15 | PC.NURSE ---
1400--Phone call to Essence Ernst CNM re: labs, v.s., reactive NST and headach at 5/10 after IV meds. Orders to give fiorcet, and offer DC home.
[2020-10-30 14:24] LABS: RBC Urine 0-2 /hpf (0-2)
[2020-10-30 14:25] LABS: Bacteria Urine 1+ /hpf; Squamous Epithelial Cell Urine Occasional /hpf (Few)
== END 2020-10-30 14:35 | disposition home or self-care (01) ==
LOC: ANHOBOP 12:19 → ANHOBPP 12:19
PROVIDERS: Advanced Practice Midwife; Visit Provider Obstetrics & Gynecology
DX: O13.9 Gestational [pregnancy-induced] hypertension without significant proteinuria, unspecified trimester (principal); Z3A.00 Weeks of gestation of pregnancy not specified
CPT/HCPCS: 36415; 59025; 80053; 81001; 82570; 84156; 84550; 85025; 87077; 87086; 87088; 87186; 96374; 99199; A9270; J1200; J2765; J7120

== ENCOUNTER 2020-10-31 23:39 | Inpatient (IN) | payer OTHER, SELFPAY ==
[2020-11-01] VITALS (58 sets, daily range): BP systolic 83–131; BP diastolic 61–93; PULSE 31–133; RESP 18; TEMP 36.6–37; O2SAT 87–100; BMI 30.2
--- OUTSIDE RECORDS SUMMARY | 2020-11-01 00:08 | XMS_ITS | Encounter Summary ---
:1995 Author Reason for Visit OB visit OB [id number] EDC 11/13/2020 LMP 02/07/2020 Assessment and Plan Assessment Note Patient is _32__weeks . Dis cussed plan. 1. Routine care Discussion Note: None recorded.Patient educational handouts: No information available. Plan of Care Reminders Provider Appointments Any Julissa riojas, CN 11/03/2020 1:15PM ? Ob Routine Rossy Ernst, 11/05/2020 CNM 3:30PM ? Induction Rossy Ernst, 11/07/2020 CNM 5:00AM ? Ob Routine Rossy Ernst, 11/12/2020 CNM 10:15AM Lab None ? ? recorded. Referral None ? ? recorded. Procedures None ? ? recorded. Surgeries None ? ? recorded. Imaging None ? ? recorded. Medications Name Start Date ? ? xpgczktzzx-reptzttrjahqa-taayprem 50 mg-300 mg-40 mg c apsule ? Take 1 capsule every 6 hours by oral route as needed. nystatin 100,000 unit/gram topical ointment ? APPLY TO THE AFFECTED AREA(S) BY TOPICAL ROUTE 2 TIME S PER DAY triamcinolone acetonide 0.1 % top
--- OUTSIDE RECORDS SUMMARY | 2020-11-01 00:08 | XMS_ITS | Encounter Summary ---
:1995 Author Reason for Visit OB visit Assessment and Plan 1. Routine care ? Fioricet 50 mg-300 mg-40 m g capsule Discussion Note: None recorded.Patient educational handouts: No information available. Plan of Care Reminders Provider Appointments Any Julissa riojas, CNM 11/03/2020 1:15PM ? Ob Routine Rossy Ernst, 11/05/2020 CNM 3:30PM ? Induction Rossy Ernst, 11/07/2020 CNM 5:00AM ? Ob Routine Rossy Ernst, 11/12/2020 CNM 10:15AM Lab None ? ? recorded. Referral None ? ? recorded. Procedures None ? ? recorded. Surgeries None ? ? recorded. Imaging None ? ? recorded. Medications Name Start Date ? ? evwxtkrzjc-ginevmxiekzqv-kfmzmhgv 50 mg-300 mg-40 mg c apsule ? Take 1 capsule every 6 hours by oral route as needed. nystatin 100,000 unit/gram topical ointment ? APPLY TO THE AFFECTED AREA(S) BY TOPICAL ROUTE 2 TIME S PER DAY triamcinolone acetonide 0.1 % topical ointment ? APPLY A THIN LAYER TO THE AFFECTED AREA(S) BY TOPICAL ROUTE 2 TIMES PER DAY Medications Administered
--- OUTSIDE RECORDS SUMMARY | 2020-11-01 00:08 | XMS_ITS | Encounter Summary ---
:1995 Author Reason for Visit OB visit OB [id number] EDC 11/13/2020 LMP 02/07/2020 Assessment and Plan Assessment Note Patient is _36__weeks . Dis cussed plan. 1. Candidiasis of vagina ? nystatin-triamcinolone 100 ,000 unit/gram-0.1 % topical ointment ? Diflucan 150 mg tablet 2. Routine care Discussion Note: None recorded.Patient educational handouts: No information available. Plan of Care Reminders Provider Appointments Any Julissa riojas, JUAN 11/03/2020 1:15PM ? Ob Routine Rossy Ernst, 11/05/2020 CNM 3:30PM ? Induction Rossy Ernst, 11/07/2020 CNM 5:00AM ? Ob Routine Rossy Ernst, 11/12/2020 CNM 10:15AM Lab None ? ? recorded. Referral None ? ? recorded. Procedures None ? ? recorded. Surgeries None ? ? recorded. Imaging None ? ? recorded. Medications Name Start Date ? ? sdjgeusjvs-gewwrsijwnzsh-ifxjvizw 50 mg-300 mg-40 mg c apsule ?
--- OUTSIDE RECORDS SUMMARY | 2020-11-01 00:08 | XMS_ITS | Encounter Summary ---
:1995 Author Reason for Visit None recorded. Assessment and Plan 1. Excessive growth affect ing management of mother ? US, obstetric, follow-up Discussion Note: None recorded.Patient educational handouts: No [...] recorded. Surgeries None ? ? recorded. Imaging [facility], Follow-up 10/15/2020 Medications Name Start Date ? ? bcowqwjzmq-mheaeowcpmoui-lyrpfgim 50 mg-300 mg-40 mg c apsule ? Take 1 capsule every 6 hours by oral route as needed. nystatin 100,000 unit/gram topical ointment ? APPLY TO THE AFFECTED AREA(S) BY TOPICAL ROUTE 2 TIME S PER DAY triamcinolone acetonide 0.1 % topical ointment ? APPLY A THI
--- OUTSIDE RECORDS SUMMARY | 2020-11-01 00:08 | XMS_ITS ---
:1995 Author Care Team Providers Name Role Phone SitaBrianfox Gallegos Primary Care Provider Unavailable Allergies Code Code System Name Reaction Severity Status Onset NKDA ? Medications Name Status Start Date Stop Date ? ? amoxicillin 875 mg-potassium clavulanate 125 mg tablet Completed ? 04/19/2020 TK 1 T PO BID ampicillin 500 mg capsule Completed ? 2020 azithromycin 250 mg tablet Completed ? 10/01 stbymkygya-llzmrwruqgqqe-baiphlm Active ? Not available e 50 mg-300 mg-40 mg capsule ycggbrqhrg-enxapkjclszrr-duknfwhb 50 mg-325 mg-40 mg tablet Comp leted ? 09/03/2020 TAKE 1-2 TABLETS BY MOUTH EVERY 6 HOURS NEEDED HEADACHE cephalexin 500 mg capsule Completed ? 2020 cetirizine 10 mg tablet Completed ? 04/19/20 20 TK 1 T PO D Colace 100 mg capsule Completed ? 09/17/2020 Take 1 capsule every day by oral route. cyclobenzaprine 5 mg tablet Completed ? 09/27 TAKE 1 TABLET BY MOUTH EVERY 8 HOURS NEEDED fluconazole 150 mg tablet Completed ? 2020 fluticasone propionate 50 Completed ? 2019 mcg/actuation nasal spray,suspension ibuprofen 600 mg tablet Completed ? 12/07/19 Imitrex 25 mg tablet Completed ? 05/02/2019 take 1 tablet by oral route after onset of migraine; may repeat after 2 hours if headache returns,not to exceed 200mg in 24hrs 1.5/30 (28) 1.5 mg-30 Completed ? 06/19/2019 mcg (21)/75 mg (7) tablet Metrogel Va
--- OUTSIDE RECORDS SUMMARY | 2020-11-01 00:08 | XMS_ITS | Encounter Summary ---
:1995 Author Reason for Visit OB visit OB [id number] EDC 11/13/2020 LMP 02/07/2020 Assessment and Plan Assessment Note Patient is __38_weeks . Dis cussed plan. 1. Routine care [...] recorded. Medications Name Start Date ? ? mtmoinlkvh-cnobwhpudzsvd-ehzwfwme 50 mg-300 mg-40 mg c apsule ? Take 1 capsule every 6 hours by oral route as needed. nystatin 100,000 unit/gram topical ointment ? APPLY TO THE AFFECTED AREA(S) BY TOPICAL ROUTE 2 TIME S PER DAY triamcinolone acetonide 0.1 % topic
--- OUTSIDE RECORDS SUMMARY | 2020-11-01 00:08 | XMS_ITS | Encounter Summary ---
[...] recorded. Surgeries None ? ? recorded. Imaging [facility] Obstetric, Follow-up 09/24/2020 Medications Name Start Date ? ? pxyljbtcxe-skgdwuxxhztzb-qpdpovue 50 mg-300 mg-40 mg c apsule ? Take 1 capsule every 6 hours by oral route as needed. nystatin 100,000 unit/gram topical ointment ? APPLY TO THE AFFECTED AREA(S) BY TOPICAL ROUTE 2 TIME S PER DAY triamcinolone acetonide 0.1 % topical ointment ? APPLY A
--- OUTSIDE RECORDS SUMMARY | 2020-11-01 00:08 | XMS_ITS | Encounter Summary ---
:1995 Author Reason for Visit OB visit OB [id number] EDC 11/13/2020 LMP 02/07/2020 Assessment and Plan Assessment Note Patient is __31_weeks . Dis cussed plan. 1. Routine care [...] recorded. Medications Name Start Date ? ? jzvdlwjiep-uvmhvadpcrfkh-bkyitotu 50 mg-300 mg-40 mg c apsule ? Take 1 capsule every 6 hours by oral route as needed. nystatin 100,000 unit/gram topical ointment ? APPLY TO THE AFFECTED AREA(S) BY TOPICAL ROUTE 2 TIME S PER DAY triamcinolone acetonide 0.1 % top
--- OUTSIDE RECORDS SUMMARY | 2020-11-01 00:08 | XMS_ITS | Encounter Summary ---
:1995 Author Reason for Visit OB visit Assessment and Plan 1. Routine care Discussion Note: None recorded.Patient [...] recorded. Medications Name Start Date ? ? oyayazpjid-xpsdwvqvikztb-zonjipjr 50 mg-300 mg-40 mg c apsule ? Take 1 capsule every 6 hours by oral route as needed. nystatin 100,000 unit/gram topical ointment ? APPLY TO THE AFFECTED AREA(S) BY TOPICAL ROUTE 2 TIME S PER DAY triamcinolone acetonide 0.1 % topical ointment ? APPLY A THIN LAYER TO THE AFFECTED AREA(S) BY TOPICAL ROUTE 2 TIMES PER DAY Medications Administered None recorded. Vitals Height Weight BMI
--- OUTSIDE RECORDS SUMMARY | 2020-11-01 00:09 | XMS_ITS | Encounter Summary ---
:1995 Author Reason for Visit OB visit OB [id number] EDC 11/13/2020 LMP 02/07/2020 Assessment and Plan Assessment Note Patient is _29__weeks . Dis cussed plan. 1. Routine care [...] recorded. Medications Name Start Date ? ? vytbiskwsk-pavfteciotncq-rymsdsed 50 mg-300 mg-40 mg c apsule ? Take 1 capsule every 6 hours by oral route as needed. nystatin 100,000 unit/gram topical ointment ? APPLY TO THE AFFECTED AREA(S) BY TOPICAL ROUTE 2 TIME S PER DAY triamcinolone acetonide 0.1 % topi
--- OUTSIDE RECORDS SUMMARY | 2020-11-01 00:09 | XMS_ITS | Encounter Summary ---
:1995 Author Reason for Visit None recorded. Assessment and Plan 1. Uterine size for dates discre pancy ? US, obstetric, follow-up Discussion Note: None recorded.Patient educational handouts: No information available. Plan of Care Reminders Provider Appointments Any Julissa riojas, CNDanna 11/03/2020 1:15PM ? Ob Routine Rossy Ernst, 11/05/2020 CNM 3:30PM ? Induction Rossy Ernst, 11/07/2020 CNM 5:00AM ? Ob Routine Rossy Ernst, 11/12/2020 CNM 10:15AM Lab None ? ? recorded. Referral None ? ? recorded. Procedures None ? ? recorded. Surgeries None ? ? recorded. Imaging US, [place] Obstetric, Follow-up 09/03/2020 Medications Name Start Date ? ? ukldswibib-egzhevcgchnsn-jfjuwdev 50 mg-300 mg-40 mg c apsule ? Take 1 capsule every 6 hours by oral route as needed. nystatin 100,000 unit/gram topical ointment ? APPLY TO THE AFFECTED AREA(S) BY TOPICAL ROUTE 2 TIME S PER DAY triamcinolone acetonide 0.1 % topical ointment ? APPLY A THIN LAYER TO THE AFFE
--- OUTSIDE RECORDS SUMMARY | 2020-11-01 00:09 | XMS_ITS | Encounter Summary ---
:1995 Author Reason for Visit OB visit [id number] Assessment and Plan 1. Routine care ? Colace 100 mg capsule ? Fioricet 50 mg-300 mg-40 m g [...] recorded. Medications Name Start Date ? ? dgkhumenvj-ydvlixpotphox-pckogwba 50 mg-300 mg-40 mg c apsule ? Take 1 capsule every 6 hours by oral route as needed. nystatin 100,000 unit/gram topical ointment ? APPLY TO THE AFFECTED AREA(S) BY TOPICAL ROUTE 2 TIME S PER DAY triamcinolone acetonide 0.1 % topical ointment ?
[2020-11-01] MEDS: LACTATED RINGERS 1,000 ML 125 ML IV CONT (00:15)
[2020-11-01 00:25] LABS: Basophils Absolute Auto 0.1 K/mm3 (0.0-0.1); Basophils Percent Auto 0.4 % (0.2-1.2); Eosinophils Absolute Auto 0.1 K/mm3 (0-0.3); Eosinophils Percent Auto 0.3 % (0-4.4); Hemoglobin 10.2 g/dL (12.0-15.0); Immature Granulocyte Absolute 0.11 K/mm3 (0.00-0.031); Immature Granulocyte Percent A 0.6 % (0-0.5); Lymphocytes Absolute Auto 2.99 K/mm3 (0.9-3.2); Lymphocytes Percent Auto 16.2 % (18.3-44.2); Mean Corpuscular HGB Conc 29.1 g/dl (32-36); Mean Corpuscular Hemoglobin 21.6 pg (26-34); Mean Corpuscular Volume 74.2 fl (80-100); Mean Platelet Volume 12.2 fl (7.4-10.4); Monocytes Absolute Auto 1.2 K/mm3 (0.1-0.6); Monocytes Percent Auto 6.2 % (2.6-8.5); Neutrophils Absolute Auto 14.1 K/mm3 (1.3-6.7); Neutrophils Percent Auto 76.3 % (45.5-73.1); Platelet Count Result 423 k/mm3 (150-375); Red Blood Count 4.72 M/mm3 (4.2-5.4); White Blood Count 18.4 K/mm3 (4.5-10.0)
[2020-11-01 00:45] LABS: Hypochromasia 1+ (NORMAL); Large Platelets Present; Platelet Estimate Increased (Adequate)
--- NOTE | 2020-11-01 00:49 | WPDANESEPPF ---
Anes - Initial Pre Proc Eval Procedure: labor epidural Date/Time: 11/01/20 00:49 Surgeon: Ritchie Buckner MD Pre Op Diagnosis: labor pain Pre Op Diagnosis: R/O SROM Patient Data Age: 25 Gender: F Height: Weight: Last Vital Signs Pulse 109 H 11/01/20 00:48 BP 124/79 11/01/20 00:48 Pulse Ox 95 11/01/20 00:48 Allergies Allergy/AdvReac Type Severity Reaction Status Date / Time No Known Allergies Allergy Verified 05/14/20 15:33 Home Medications Medication Instructions Recorded Confirmed Type acetaminophen 500 mg PO QID PRN 09/16/20 10/08/20 History opivfrifaq-zjjbqrnfidkof-xnxq 1 - 21 cap PO Q4H PRN 09/16/20 10/08/20 History [Fioricet] ampicillin 500 mg PO Q6H 10/08/20 10/08/20 History cyclobenzaprine 5 mg PO Q8H PRN 10/08/20 10/08/20 History Laboratory Tests 11/01/20 11/01/20 00:14 00:14 WBC 18.4 K/mm3 H K/mm3 (4.5-10.0) RBC 4.72 M/mm3 M/mm3 (4.2-5.4) Hgb 10.2 g/dL L g/dL (12.0-15.0) Hct 35.0 % L % (37.0-47.0) MCV 74.2 fl L fl (80-100) MCH 21.6 pg L pg (26-34) MCHC 29.1 g/dl L g/dl (32-36) RDW 17.0 % H % (11.5-14.5) Plt Count 423 k/mm3 H k/mm3 (150-375) MPV 12.2 fl H fl (7.4-10.4) Immature Gran % (Auto) 0.6 % H % (0-0.5) Neut % (Auto) 76.3 % H % (45.5-73.1) Lymph % (Auto) 16.2 % L % (18.3-44.2) Coffey % (Auto) 6.2 % % (2.6-8.5) Eos % (Auto) 0.3 % % (0-4.4) Baso % (Auto) 0.4 % % (0.2-1.2) Lymph # (Auto) 2.99 K/mm3 K/mm3 (0.9-3.2) Coffey # (Auto) 1.2 K/mm3 H K/mm3 (0.1-0.6) Eos # (Auto) 0.1 K/mm3 K/mm3 (0-0.3) Baso # (Auto) 0.1 K/mm3 K/mm3 (0.0-0.1) Abs Immat Gran (auto) 0.11 K/mm3 H K/mm3 (0.00-0.031) Absolute Neuts (auto) 14.1 K/mm3 H K/mm3 (1.3-6.7) Absolute Nucleated RBC 0.0 K/mm3 K/mm3 (0.0-0.012) Nucleated RBC % 0.0 % % (0.0-0.2) Platelet Estimate Increased (Adequate) Large Platelets Present Hypochromasia 1+ (NORMAL) RPR Pending Patient hx anesthesia problems: none Family hx anesthesia problems: none [facility] Past Medical History Medical History (Updated 05/15/20 @ 00:00 by Les Strange) Anxiety Bronchitis Fracture rt shoulder, lt elbow Migraines Rib fracture Surgical History Surgical History H/O hernia repair with stent History of kidney surgery kidney reflux surgery Family History Family History Sibling Hypertension Heart disease Asthma Diabetes mellitus Father Hypertension Social History Social History Smoking status: Never smoker Second hand tobacco smoke exposure: No Alcohol intake: never Substance use: never Gender identity (if verbalized by the patient): Female Spiritual care concerns: No Anes - Eval Final PreProcedure Day of Procedure 11/01/20 00:49 Patient weight: obese ASA classification: II Anesthesia type and monitoring: regional epidural Informed Consent: The patient's anesthetic plan and its attendant risks and benefits were discussed with the patient/family/POA. Questions were solicited and answers provided to the satisfaction of the patient/family/POA.
--- NOTE | 2020-11-01 02:09 | LDADM ---
This patient, Cullen Frias, was admitted to Labor/Delivery/Recovery 106 on 10/31/20 at 23:39. Plans for labor, pain management and were discussed with patient. Patient/family oriented to hospital policies and general routines including ID bracelet, bed and alarms, visiting hours, pain management, procedures, bathroom and other care routines, personal items, smoking policy, room service/diet and guest tray routines, infant security routines, and visiting hours. Patient/Family are encouraged to report perceived risks to care and to ask questions if they do not understand what they are told or what they should do. See OBIX for further documentation.
[2020-11-01] MEDS: OXYTOCIN 30 UNITS/NS 500 ML 30 UNITS/500 ML BAG 999 UNITS IV CONT (03:08)
--- NOTE | 2020-11-01 03:26 | WPDOBADMIT ---
Obstetrics - Admit Note Admission Note: record reviewed. No pertinent additions to the history and/or any subsequent changes in the physical findings that are not consistent with the expected course of the were found. pt arrived after SROM 4-5 cm Additions to the history and/or subsequent changes in the physical findings follow. None.
--- NOTE | 2020-11-01 03:27 | P.PCNOB_ITS ---
OB - Delivery Note Procedure Delivery date: 11/01/20 Procedure: vaginal delivery events: No Care Intrapartal events: None Induction method: none Delivery monitor: external FHT and external uterine Route of delivery: Laceration Description: Perineal - 1st Degree Delivery repair: vicryl Specimen: No Quantitative Blood Loss (ml): 118 Anesthesia type: Epidural Disposition: floor Riva Baby Date of : 11/01/20 Time of : 03:03 Weeks of gestation at delivery: 38 gender: Female Weight (pounds): 7 Weight (ounces): 11 presentation: vertex position: Left Occiput Anterior Placenta delivery description: Spontaneous cord vessel description: 3 Vessels, Clamped/Cut and Delayed Cord Clamping score one minute: 8 score five minutes: 9 Narrative: mother and baby skin to skin instable condition
[2020-11-01] MEDS: IBUPROFEN 600 MG TABLET PO ×3 (03:28→20:15)
[2020-11-01] MEDS: OXYTOCIN 30 UNITS/NS 500 ML 30 UNITS/500 ML BAG 125 UNITS IV CONT (03:40)
[2020-11-01 04:34] LABS: Amphetamine Screen Urine Negative (Negative); Barbiturate Screen Urine Positive (Negative); Benzodiazepines Screen Urine Negative (Negative); Cannabinoid Screen Urine Negative (Negative); Cocaine Screen Urine Negative (Negative); Methadone Screen Urine Negative (Negative); Opiate Screen Urine Negative (Negative); Phencyclidine Screen Urine Negative (Negative)
[2020-11-01] MEDS: BENZOCAINE 20% AER SPR (*SP) 56 GM CAN 1 SPRAY TOPICAL (05:12)
[2020-11-01] MEDS: WITCH HAZEL 40 PADS 1 PAD TOPICAL (05:12)
--- NOTE | 2020-11-01 05:42 | PC.NURSE ---
Patient transferred to post room #285 via wheel chair. Support person present. Oriented to unit, room, information board, rooming in, admission packet and security measures. Patient verbalizes understanding.
[2020-11-02] VITALS: BP 107/72; PULSE 93; RESP 16; TEMP 36.5; O2SAT 97
[2020-11-02] MEDS: IBUPROFEN 600 MG TABLET PO ×2 (03:43→11:01)
[2020-11-02 03:55] LABS: Hematocrit 28.7 % (37.0-47.0); Hemoglobin 8.3 g/dL (12.0-15.0)
[2020-11-02 08:10] VITALS: BP 126/83; PULSE 68; RESP 18; TEMP 36.3
[2020-11-02] MEDS: DOCUSATE SODIUM 100 MG CAPSULE PO (08:15)
[2020-11-02] MEDS: POLYSACCHARIDE IRON COMPLEX 150 MG CAPSULE PO (08:15)
[2020-11-02] MEDS: MULTIVIT/MIN/PREN/FOL AC/IRON TABLET 1 TAB PO (08:15)
[2020-11-02] MEDS: ACETAMINOPHEN 325 MG TABLET 650 MG PO (08:15)
--- NOTE | 2020-11-02 10:31 | PM.OBPNVD ---
OB - PN: Subj Subjective Date/time seen: 11/02/20 10:31 Patient comments: no complaints, pain well controlled, incisional pain, tolerating diet and flatus present OB - PN: Obj Data Labs CBC & Chem 7: 11/02/20 03:48 Labs: Laboratory Results - last 24 hr 11/02/20 11/02/20 03:48 03:48 Hgb 8.3 L Hct 28.7 L Blood Type O Negative Antibody Screen TNP Screen Negative Baby's Blood Type O pos Baby's SHILO Negative Doses of RhIg Required 1 OB - PN A/P Plan day: 1 Plan: routine care Comments: No problems, routine care, to d/c Time Spent With Patient Time: Total time spent is greater than 50% in coordination of care (as documented) at patient's floor/unit and/or counseling patient: Exam Const: General: comfortable, no acute distress and alert Resp: Effort & Inspection: normal respiratory effort Auscultation: no crackles, no rales and no rhonchi Cardio: Rate: regular rate Heart sounds: no click, no murmurs and no rubs GI: Inspection: non-distended GI Palp: No Tenderness to palpation present (GI) Auscultation: normal bowel sounds Other: Incision - CDI Extrem: General: normal to inspection, no pedal edema and no calf tenderness
--- NOTE | 2020-11-02 10:32 | P.DS_ITS ---
DS: Admitting Diagnosis Admitting Diagnosis Admitting Diagnosis: labor DS: Discharge Diagnosis Discharge Diagnosis (1) Term delivered: Code(s): O80 - Encounter for full-term uncomplicated delivery Status: Acute OB - DS: Summary OB Procedures : None OB Procedures Intrapartum: Spontaneous Vag Delivery OB Procedures: : None Peripartum Data Infant Delivery Method: Natural Vaginal Time Spent with Patient Time attestation: Total time spent providing and/or coordinating discharge services: DS: Data Data Completed and Pending Labs on day of discharge: Labs from last 24 hours 11/02/20 11/02/20 03:48 03:48 Hgb 8.3 L Hct 28.7 L Blood Type O Negative Antibody Screen TNP Screen Negative Baby's Blood Type O pos Baby's SHILO Negative Doses of RhIg Required 1 Discharge Plan Discharge Discharging Clinician: Ritchie Buckner Patient Disposition: Home, Self-Care Activity: pelvic rest Diet: regular Patient Instructions: Antibiotic Form Stand Alone Forms: General Discharge Information Follow-up/Referrals: Ritchie Buckner MD [Physician] - Discharge Medications: Continued hklvvurdsj-ewzgmlkiedsll-unej [Fioricet] 50-300-40 mg Capsule 1 - 21 cap PO Q4H PRN (Reason: Headache) RF: 0 cyclobenzaprine 5 mg tablet 5 mg PO Q8H PRN (Reason: Headache) RF: 0 Date of admission: 10/31/20 23:39 Primary Care Provider: PHYSICIAN,CONSTRUCTION ANALYST Admitting Provider: Ritchie Buckner Attending physician on admission: Ritchie Buckner Condition: Stable
[2020-11-02] MEDS: RHO(D) IMMUNE GLOBULIN 300 MCG/2 ML SYRINGE IM (11:17)
[2020-11-02] MEDS: WITCH HAZEL 40 PADS 1 PAD TOPICAL (11:21)
[2020-11-02] MEDS: BENZOCAINE 20% AER SPR (*SP) 56 GM CAN 1 SPRAY TOPICAL (11:21)
[2020-11-03 07:58] LABS: Rapid Plasma Reagin Non-Reactive (NonReactive)
[2020-11-04 08:42] VITALS: BP 125/88; PULSE 89; RESP 16; TEMP 37.1; O2SAT 99
== END 2020-11-02 12:24 | disposition home or self-care (01) | DRG 560 ==
LOC: ANHLDR 11-01 00:24 → ANHOB2 11-01 05:43
PROVIDERS: Advanced Practice Midwife; Admitting Provider Obstetrics & Gynecology; Visit Provider Obstetrics & Gynecology
DX: O70.0 First degree perineal laceration during delivery (principal); Z3A.38 38 weeks gestation of pregnancy; Z37.0 Single live birth
CPT/HCPCS: 36415; 80307; 85014; 85018; 85025; 85461; 86592; 86850; 86900; 86901; 90384; A9270; J2590; J2790; J2795; J7120

== ENCOUNTER 2021-04-05 11:47 | Emergency (ER) | payer OTHER, SELFPAY ==
[2021-04-05 11:51] VITALS: BP 124/74; PULSE 94; RESP 14; TEMP 36.7; O2SAT 100
--- NOTE | 2021-04-05 11:59 | ECG_ITS ---
Measurements Intervals [place] Rate: 90 P: 40 NE: 159 QRS: 36 QRSD: 90 T: -4 QT: 375 QTc: 460 Interpretive Statements SINUS RHYTHM LEFT ATRIAL ENLARGEMENT INCOMPLETE RIGHT BUNDLE BRANCH BLOCK BORDERLINE T WAVE ABNORMALITY- ANT/INF LEADS BORDERLINE ECG Electronically Signed On 04-05-2021 13:26:27 [employer] by Ihsan Moss D.O.
[2021-04-05 12:23] LABS: Basophils Absolute Auto 0.1 K/mm3 (0.0-0.1); Basophils Percent Auto 0.5 % (0.2-1.2); Eosinophils Absolute Auto 0.1 K/mm3 (0-0.3); Eosinophils Percent Auto 0.5 % (0-4.4); Hematocrit 42.5 % (37.0-47.0); Immature Granulocyte Absolute 0.06 K/mm3 (0.00-0.031); Immature Granulocyte Percent A 0.4 % (0-0.5); Lymphocytes Absolute Auto 1.55 K/mm3 (0.9-3.2); Lymphocytes Percent Auto 9.2 % (18.3-44.2); Mean Corpuscular HGB Conc 30.6 g/dl (32-36); Mean Corpuscular Hemoglobin 25.3 pg (26-34); Mean Corpuscular Volume 82.7 fl (80-100); Mean Platelet Volume 11.9 fl (7.4-10.4); Monocytes Absolute Auto 0.6 K/mm3 (0.1-0.6); Monocytes Percent Auto 3.6 % (2.6-8.5); Neutrophils Absolute Auto 14.5 K/mm3 (1.3-6.7); Neutrophils Percent Auto 85.8 % (45.5-73.1); Platelet Count Result 378 k/mm3 (150-375); Red Blood Count 5.14 M/mm3 (4.2-5.4); Red Cell Distribution Width 17.7 % (11.5-14.5); White Blood Count 16.9 K/mm3 (4.5-10.0)
[2021-04-05 12:33] LABS: Alanine Aminotransferase 16 U/L (4-35); Albumin Level 4.5 g/dL (3.5-5.1); Alkaline Phosphatase 112 U/L (38-126); Anion Gap 10 mmol/L (8-16); Aspartate Amino Transferase 22 U/L (14-36); Bilirubin,Total 0.8 mg/dL (0.2-1.3); Blood Urea Nitrogen 9 mg/dL (7-17); Calcium 9.4 mg/dL (8.4-10.2); Carbon Dioxide 23 mmol/L (22-30); Chloride 107 mmol/L (98-107); Estimated CRCL calculation 116 ml/min; Estimated Glomerular Filt Rate > 60; Glucose 118 mg/dL (65-110); Lipase 54 U/L (23-300); Potassium 4.2 mmol/L (3.4-5.0); Sodium 140 mmol/L (137-145)
--- NOTE | 2021-04-05 16:26 | PC.NURSE ---
Pt called from triage to take her to a room to see a provider. Pt no longer in waiting room.
== END 2021-04-05 16:26 | disposition left against medical advice (07) ==
PROVIDERS: Emergency Provider Family Medicine
DX: R42 Dizziness and giddiness (principal)
CPT/HCPCS: 36415; 80053; 83690; 85025; 93005; 99199

== ENCOUNTER 2022-08-12 12:35 | Emergency (ER) | payer OTHER, SELFPAY ==
--- NOTE | ~2022-08-12 | XR_ITS ---
EXAMINATION: XR chest 2V DATE: 08/12/2022 13:57 INDICATION: Palpitations. Shortness of breath. Chest congestion. TECHNIQUE: Frontal and lateral views of the chest were obtained. COMPARISON: Chest single view 04/10/2019 FINDINGS: The chest demonstrates clear lungs without pneumonia, pleural effusion, or pneumothorax. Th e heart size is normal. Pectus excavatum is noted. IMPRESSION: 1. No acute cardiopulmonary disease. Reviewed, dictated and finalized at location A.
[2022-08-12 12:37] VITALS: BP 132/96; PULSE 86; RESP 15; TEMP 36.5; O2SAT 100
--- NOTE | 2022-08-12 12:47 | ECG_ITS ---
Measurements Intervals [place] Rate: 73 P: 40 ND: 158 QRS: 8 QRSD: 96 T: 6 QT: 389 QTc: 430 Interpretive Statements SINUS RHYTHM LEFT ATRIAL ENLARGEMENT LOW QRS VOLTAGE IN PRECORDIAL LEADS INCOMPLETE RIGHT BUNDLE BRANCH BLOCK BORDERLINE T WAVE ABNORMALITY- ANT/INF LEADS BORDERLINE ECG COMPARED TO ECG 04/05/2021 12:01:38 NO SIGNIFICANT CHANGES Electronically Signed On 08-12-2022 13:26:43 CDT by Ihsan Moss D.O.
[2022-08-12 13:51] LABS: Basophils Absolute Auto 0.1 K/mm3 (0.0-0.1); Basophils Percent Auto 0.8 % (0.2-1.2); Eosinophils Absolute Auto 0.3 K/mm3 (0-0.3); Eosinophils Percent Auto 2.4 % (0-4.4); Hemoglobin 13.1 g/dL (12.0-15.0); Immature Granulocyte Absolute 0.02 K/mm3 (0.00-0.031); Immature Granulocyte Percent A 0.2 % (0-0.5); Lymphocytes Percent Auto 24.4 % (18.3-44.2); Mean Corpuscular HGB Conc 31.2 g/dl (32-36); Mean Corpuscular Hemoglobin 26.5 pg (26-34); Mean Corpuscular Volume 84.8 fl (80-100); Mean Platelet Volume 12.4 fl (7.4-10.4); Monocytes Absolute Auto 0.7 K/mm3 (0.1-0.6); Monocytes Percent Auto 6.3 % (2.6-8.5); Neutrophils Percent Auto 65.9 % (45.5-73.1); Platelet Count Result 311 k/mm3 (150-375); Red Blood Count 4.95 M/mm3 (4.2-5.4); Red Cell Distribution Width 16.3 % (11.5-14.5); White Blood Count 10.6 K/mm3 (4.5-10.0)
--- NOTE | 2022-08-12 13:59 | ED.ARRPALP ---
HPI - Arrhythmia/Palpitations General Chief Complaint: Arrhythmia/Palpitations Stated Complaint: chest pressure, sob Time Seen by Provider: 08/12/22 12:47 History of Present Illness HPI narrative: Patient is a 27-year-old female who presents to the ER with chest discomfort. Reports she has been getting racing the heart with pressure in her chest when she walks up stairs to go to her apartment. This has been ongoing for the last couple months. No personal cardiac history or history of arrhythmia. No weight loss. No pain with deep breaths. No exertional dyspnea when walking on level ground. Sometimes she feels like she might pass out when she gets this to help with the stairs. Related Data Home Medications Medication Instructions Recorded Confirmed snmkgbjciq-xcquavoljudmu-ztoclvpx 1 - 21 cap PO Q4H PRN Headache 09/16/20 11/01/20 50 mg-300 mg-40 mg capsule (Fioricet) cyclobenzaprine 5 mg tablet 5 mg PO Q8H PRN Headache 10/08/20 11/01/20 Allergies Allergy/AdvReac Type Severity Reaction Status Date / Time No Known Allergies Allergy Verified 05/14/20 15:33 Review of Systems Review of Systems: All systems reviewed & are unremarkable except as noted in HPI and below Constitutional: Constitutional: Denies chills, Denies fatigue and Denies fever(s) Cardiovascular: Cardiovascular: Reports chest pain, Reports rapid heart rate and Denies radiating jaw, neck or arm pain Respiratory: Respiratory: Denies cough, Reports dyspnea and Denies wheezing Gastrointestinal: Gastrointestinal: Denies abdominal pain, Denies nausea and Denies vomiting [facility] Past Medical History Medical History (Updated 08/12/22 @ 17:14 by Joel Rueda MD) Anxiety Bronchitis Fracture rt shoulder, lt elbow Migraines Rib fracture Surgical History Surgical History H/O hernia repair with stent History of kidney surgery kidney reflux surgery Family History Family History Sibling Hypertension Heart disease Asthma Diabetes mellitus Father Hypertension Social History Social History Smoking status: Never smoker Second hand tobacco smoke exposure: No Alcohol intake: never Substance use: current Gender identity (if verbalized by the patient): Female Sexual Orientation (if Verbalized by the Patient): Straight or Heterosexual Spiritual care concerns: No Exam Narrative: GENERAL: Well-appearing, well-nourished, and in no acute distress. HEAD: Normocephalic, atraumatic. EYES: PERRL and EOMI. ENT: Mucous membranes moist. CHEST: Clear to auscultation. No respiratory distress. HEART: Regular rate and rhythm. Normal peripheral pulses. ABDOMEN: Soft, nontender, nondistended. EXTREMITIES: Normal range of motion. No edema. SKIN: Warm, dry, no rash. NEURO: Alert and oriented x3. PSYCH: Normal mood and affect. Course Course Emergency Course: Patient informed of lab results as well as EKG showing incomplete right bundle branch block. Troponin negative x2. Recommend follow-up with PCP and they can discuss outpatient stress test versus echo. Patient verbalized understanding. Discharge home. TSH normal Vital Signs Vital signs: Vital Signs Temperature 97.7 F 08/12/22 12:37 Pulse Rate 86 08/12/22 12:37 Respiratory Rate 15 08/12/22 12:37 Blood Pressure 132/96 H 08/12/22 12:37 Pulse Oximetry 100 08/12/22 12:37 Oxygen Delivery Room Air 08/12/22 12:37 Temperature 97.7 F 08/12/22 12:37 Pulse Rate 86 08/12/22 12:37 Respiratory Rate 15 08/12/22 12:37 Blood Pressure 132/96 H 08/12/22 12:37 Pulse Oximetry 100 08/12/22 12:37 Oxygen Delivery Room Air 08/12/22 12:37 MDM - Arrhythmia/Palpitations Lab Data 08/12/22 13:40 08/12/22 13:40 Labs: Lab Results 08/12/22 08/12/22 08/12/22 Rang
[2022-08-12 14:00] LABS: Alanine Aminotransferase 17 U/L (6-35); Albumin Level 4.4 g/dL (3.5-5.1); Alkaline Phosphatase 124 U/L (38-126); Anion Gap 4 mmol/L (8-16); Aspartate Amino Transferase 20 U/L (14-36); Bilirubin,Total 0.4 mg/dL (0.2-1.3); Blood Urea Nitrogen 7 mg/dL (7-17); Carbon Dioxide 24 mmol/L (22-30); Chloride 108 mmol/L (98-107); Estimated CRCL calculation 114 ml/min; Estimated Glomerular Filt Rate > 60; Glucose 85 mg/dL (65-110); Prothrombin Time 12.8 Seconds (11.1-14.7); Sodium 136 mmol/L (137-145)
[2022-08-12 14:01] LABS: Partial Thromboplastin Time 27.2 SECONDS (22.3-36.8)
[2022-08-12 14:11] LABS: Troponin I < 0.012 ng/mL (0.000-0.034)
[2022-08-12 17:13] LABS: Troponin I < 0.012 ng/mL (0.000-0.034)
== END 2022-08-12 18:27 | disposition home or self-care (01) ==
PROVIDERS: Emergency Provider Emergency Medicine; PCP Nurse Practitioner Family
DX: R07.89 Other chest pain (principal); I45.10 Unspecified right bundle-branch block; R94.31 Abnormal electrocardiogram [ECG] [EKG]
CPT/HCPCS: 36415; 71046; 80053; 84443; 84484; 85025; 85610; 85730; 93005; 99284

== ENCOUNTER 2022-08-19 20:31 | Emergency (ER) | payer OTHER, SELFPAY ==
--- NOTE | ~2022-08-19 | CT_ITS ---
CT of the Abdomen and Pelvis: Indication: Abdominal pain Technique: 2.5 mm axial scans were obtained through the abdomen and pelvis following intravenous adm inistration of 100 cc of Omnipaque 350. Dose reduction technique was used on this scan by utilizing a utomated exposure control and iterative reconstruction technique. The dose-length product (DLP) was 7 11.88 mGy-cm. Findings: Scans through the lung bases are unremarkable. The liver, spleen, pancreas, gallbladder, adrenals and kidneys are within normal limits. No evidence of aortic aneurysm. No lymphadenopathy. No bowel obstruction or bowel wall thickening. Moderate stool noted. There is no evidence to suggest acute appendicitis. Images through the pelvis were performed. Urinary bladder unremarkable. No adnexal mass evident. No a scites. Impression: Moderate stool. Correlate for constipation. No other significant findings. Reviewed, dictated and finalized at [facility]. Impression: Moderate stool. Correlate for constipation. No other significant findings.
[2022-08-19 20:38] VITALS: BP 148/97; PULSE 115; RESP 16; TEMP 37.1; O2SAT 100
--- NOTE | 2022-08-19 20:47 | ECG_ITS ---
Measurements Intervals [place] Rate: 102 P: 42 PA: 162 QRS: 21 QRSD: 89 T: -4 QT: 318 QTc: 415 Interpretive Statements SINUS TACHYCARDIA LEFT ATRIAL ENLARGEMENT INCOMPLETE RIGHT BUNDLE BRANCH BLOCK LOW QRS VOLTAGE IN PRECORDIAL LEADS BORDERLINE T WAVE ABNORMALITY- ANT/INF LEADS BORDERLINE ECG COMPARED TO ECG 08/12/2022 12:50:33 SINUS TACHYCARDIA NOW PRESENT Electronically Signed On 08-20-2022 6:35:02 CDT by Ihsan Moss D.O.
[2022-08-19 20:58] LABS: Basophils Absolute Auto 0.1 K/mm3 (0.0-0.1); Basophils Percent Auto 0.8 % (0.2-1.2); Eosinophils Absolute Auto 0.3 K/mm3 (0-0.3); Hemoglobin 12.6 g/dL (12.0-15.0); Immature Granulocyte Absolute 0.04 K/mm3 (0.00-0.031); Immature Granulocyte Percent A 0.4 % (0-0.5); Lymphocytes Percent Auto 28.1 % (18.3-44.2); Mean Corpuscular HGB Conc 30.7 g/dl (32-36); Mean Corpuscular Hemoglobin 26.5 pg (26-34); Mean Corpuscular Volume 86.1 fl (80-100); Mean Platelet Volume 11.7 fl (7.4-10.4); Monocytes Absolute Auto 0.8 K/mm3 (0.1-0.6); Monocytes Percent Auto 6.9 % (2.6-8.5); Neutrophils Absolute Auto 6.9 K/mm3 (1.3-6.7); Neutrophils Percent Auto 60.8 % (45.5-73.1); Platelet Count Result 310 k/mm3 (150-375); Red Blood Count 4.76 M/mm3 (4.2-5.4); Red Cell Distribution Width 15.7 % (11.5-14.5); White Blood Count 11.4 K/mm3 (4.5-10.0)
[2022-08-19 21:07] LABS: Alanine Aminotransferase 15 U/L (6-35); Albumin Level 4.3 g/dL (3.5-5.1); Alkaline Phosphatase 94 U/L (38-126); Anion Gap 6 mmol/L (8-16); Aspartate Amino Transferase 22 U/L (14-36); Bilirubin,Total 0.6 mg/dL (0.2-1.3); Blood Urea Nitrogen 7 mg/dL (7-17); Carbon Dioxide 26 mmol/L (22-30); Chloride 107 mmol/L (98-107); Estimated CRCL calculation 114 ml/min; Estimated Glomerular Filt Rate > 60; Glucose 85 mg/dL (65-110); Potassium 4.3 mmol/L (3.4-5.0); Sodium 139 mmol/L (137-145)
[2022-08-20] MEDS: MORPHINE SULFATE (*CRX) 4 MG/ML INJ IV PUSH ×2 (00:39→02:36)
[2022-08-20] MEDS: ONDANSETRON INJ 4 MG/2 ML VIAL IV PUSH (00:39)
[2022-08-20] MEDS: SODIUM CHLORIDE 0.9% IV 1,000 ML 999 ML IV CONT (00:43)
[2022-08-20 00:44] VITALS: BP 118/90; PULSE 89; RESP 16; O2SAT 98
[2022-08-20 01:30] LABS: Appearance Urine Clear (Clear); Bacteria Urine Rare /hpf; Bilirubin Urine Negative (Negative); Blood Urine Negative (Negative); Color Urine Yellow (Yellow); Glucose Urine UA Negative (Negative); Ketones Urine Trace mg/dL (Negative); Leukocyte Esterase Ur 1+ LEU/UL (Negative); Nitrate Urine Negative (Negative); Non Pathogenic Casts 0-2; Protein Urine Negative (Negative); RBC Urine 0-2 /hpf (0-2); Specific Grav Ur 1.019 (1.001-1.035); Squamous Epithelial Cell Urine Moderate /hpf (Few)
[2022-08-20 03:09] LABS: Add Urine Microscopic? YES
--- NOTE | 2022-08-20 03:15 | ED.GENADULT ---
HPI - General Adult General Chief complaint: Abdominal Pain Stated complaint: abd pain Time Seen by Provider: 08/19/22 23:43 History of Present Illness HPI narrative: Patient 27-year-old female presents emerged department with chief complaint of abdominal pain and flank pain. Patient reports that she has a cramping-like pain that feels like a contraction patient denies vaginal discharge or vaginal bleeding patient reports the pain wraps around from the back to the lower quadrants. Related Data Home Medications Medication Instructions Recorded Confirmed [id number]-[id number]-vmbaglmc 1 - 21 cap PO Q4H PRN Headache 09/16/20 11/01/20 50 mg-300 mg-40 mg capsule (Fioricet) cyclobenzaprine 5 mg tablet 5 mg PO Q8H PRN Headache 10/08/20 11/01/20 Allergies Allergy/AdvReac Type Severity Reaction Status Date / Time No Known Allergies Allergy Verified 05/14/20 15:33 Review of Systems Review of Systems: A 10 system review of systems was completed on the patient and is negative except for what is stated in the HPI. Nursing and ancillary documentation was reviewed. [facility] Past Medical History Medical History (Updated 08/20/22 @ 03:19 by Wilfredo Mcguire MD) Anxiety Bronchitis Fracture rt shoulder, lt elbow Migraines Rib fracture Surgical History Surgical History H/O hernia repair with stent History of kidney surgery kidney reflux surgery Family History Family History Sibling Hypertension Heart disease Asthma Diabetes mellitus Father Hypertension Social History Social History Smoking status: Never smoker Second hand tobacco smoke exposure: No Alcohol intake: never Substance use: current Gender identity (if verbalized by the patient): Female Sexual Orientation (if Verbalized by the Patient): Straight or Heterosexual Spiritual care concerns: No Exam Narrative: GENERAL: Well-appearing, well-nourished, and in no acute distress. HEAD: Normocephalic, atraumatic. EYES: PERRLA and EOMI. ENT: Nares clear, no rhinorrhea or epistaxis. Mucous membranes moist. NECK: Supple. CHEST: Clear to auscultation. No respiratory distress. HEART: Regular rate and rhythm. No murmur heard. Normal peripheral pulses. ABDOMEN: Soft, diffuse tenderness to palpation, nondistended, normal active bowel sounds. EXTREMITIES: Normal range of motion. No edema. SKIN: Warm, dry, no rash. NEURO: No focal deficits. Alert and oriented x3. PSYCH: Normal mood and affect. Course Vital Signs Vital signs: Vital Signs Temperature 37.1 C 08/19/22 20:38 Pulse Rate 115 H 08/19/22 20:38 Respiratory Rate 16 08/19/22 20:38 Blood Pressure 148/97 H 08/19/22 20:38 Pulse Oximetry 100 08/19/22 20:38 Oxygen Delivery Room Air 08/19/22 20:38 Temperature 37.1 C 08/19/22 20:38 Pulse Rate 89 08/20/22 00:44 Respiratory Rate 16 08/20/22 00:44 Blood Pressure 118/90 08/20/22 00:44 Pulse Oximetry 98 08/20/22 00:44 Oxygen Delivery Room Air 08/19/22 20:[address] [facility] Narrative Medical decision making narrative: Differential diagnosis includes intra-abdominal infection, UTI, pyelonephritis, appendicitis, colitis, diverticulitis Laboratory studies were obtained which showed a white blood cell count of 11.4 normal electrolytes Laboratory studies showed a UTI present with 6-10 white blood cells Vital Signs Vital Signs: Vital Signs Temperature 37.1 C 08/19/22 20:38 Pulse Rate 115 H 08/19/22 20:38 Respiratory Rate 16 08/19/22 20:38 Blood Pressure 148/97 H 08/19/22 20:38 Pulse Oximetry 100 08/19/22 20:38 Oxygen Delivery Room Air 08/19/22 20:38 Temperature 37.1 C 08/19/22 20:38 Pulse Rate 89 08/20/22 00:44 Respiratory Rate 16 08/20/22 00:4
[2022-08-20] MEDS: CEPHALEXIN 500 MG CAPSULE PO (03:30)
[2022-08-20 03:47] VITALS: BP 104/67; PULSE 100; RESP 13; O2SAT 98
== END 2022-08-20 03:48 | disposition home or self-care (01) ==
PROVIDERS: Emergency Provider Emergency Medicine; PCP Nurse Practitioner Family
DX: N39.0 Urinary tract infection, site not specified (principal); R10.84 Generalized abdominal pain; F41.9 Anxiety disorder, unspecified
CPT/HCPCS: 36415; 74177; 80053; 81001; 81025; 85025; 87086; 87088; 93005; 96361; 96374; 96375; 96376; 99284; A9270; J2270; J2405; J7030; Q9967

== ENCOUNTER 2022-09-21 14:29 | Outpatient (CLI) | payer OTHER, SELFPAY ==
[2022-09-21 14:42] LABS: Basophils Absolute Auto 0.1 K/mm3 (0.0-0.1); Basophils Percent Auto 0.5 % (0.2-1.2); Eosinophils Absolute Auto 0.2 K/mm3 (0-0.3); Eosinophils Percent Auto 1.7 % (0-4.4); Hematocrit 43.1 % (37.0-47.0); Hemoglobin 13.2 g/dL (12.0-15.0); Immature Granulocyte Absolute 0.04 K/mm3 (0.00-0.031); Immature Granulocyte Percent A 0.4 % (0-0.5); Lymphocytes Percent Auto 23.5 % (18.3-44.2); Mean Corpuscular HGB Conc 30.6 g/dl (32-36); Mean Corpuscular Hemoglobin 26.7 pg (26-34); Mean Corpuscular Volume 87.2 fl (80-100); Mean Platelet Volume 12.2 fl (7.4-10.4); Monocytes Absolute Auto 0.8 K/mm3 (0.1-0.6); Monocytes Percent Auto 7.5 % (2.6-8.5); Neutrophils Absolute Auto 7.4 K/mm3 (1.3-6.7); Neutrophils Percent Auto 66.4 % (45.5-73.1); Platelet Count Result 315 k/mm3 (150-375); Red Blood Count 4.94 M/mm3 (4.2-5.4); Red Cell Distribution Width 15.5 % (11.5-14.5); White Blood Count 11.1 K/mm3 (4.5-10.0)
[2022-09-21 16:49] LABS: Alanine Aminotransferase 18 U/L (6-35); Albumin Level 4.3 g/dL (3.5-5.1); Alkaline Phosphatase 109 U/L (38-126); Anion Gap 8 mmol/L (8-16); Aspartate Amino Transferase 21 U/L (14-36); Bilirubin,Total 0.6 mg/dL (0.2-1.3); Blood Urea Nitrogen 5 mg/dL (7-17); Calcium 8.9 mg/dL (8.4-10.2); Carbon Dioxide 27 mmol/L (22-30); Chloride 106 mmol/L (98-107); Estimated Glomerular Filt Rate > 60; Glucose 92 mg/dL (65-110); Sodium 141 mmol/L (137-145)
[2022-09-21 18:02] LABS: Folic Acid 7.6 ng/mL (2.76->20)
[2022-09-21 18:18] LABS: Iron 39 ug/dL (37-170); Percent Iron Saturation 9 % (20-50)
[2022-09-21 18:41] LABS: Ferritin 4.97 ng/mL (6.24-137)
[2022-09-25 06:00] LABS: Methylmalonic Acid 218 nmol/L (87-318)
== END 2022-09-21 14:30 | disposition home or self-care (01) ==
LOC: ANHLAB 14:30
PROVIDERS: PCP Nurse Practitioner Family; Visit Provider Internal Medicine Hematology & Oncology
DX: D64.9 Anemia, unspecified (principal)
CPT/HCPCS: 36415; 80053; 82607; 82728; 82746; 83540; 83550; 83921; 84443; 85025

== ENCOUNTER 2022-12-10 14:16 | Emergency (ER) | payer OTHER, SELFPAY ==
[2022-12-10 14:26] VITALS: BP 140/82; PULSE 82; RESP 18; TEMP 36.9; O2SAT 100
--- NOTE | 2022-12-10 16:49 | ED.GENADULT ---
HPI - General Adult General Chief complaint: Neck Pain/Injury Stated complaint: neck pain Time Seen by Provider: 12/10/22 15:35 Source: patient Mode of arrival: ambulatory Limitations: no limitations History of Present Illness HPI narrative: This is a 27-year-old female who presents to the ED with chief complaint of a neck injury that occurred yesterday. Patient states she was lying in her bed when her 3-year-old was jumping on the bed and accidentally landed on her neck. She states he hit the right side and caused her neck to jerk to the left. Since then she is having increased pain with certain movements and certain positions. She reports bilateral shoulder and neck pain as well as some occipital headache. Denies ever having any low LOC. Denies vision changes, speech problems, numbness, weakness. Related Data Home Medications Medication Instructions Recorded Confirmed alprazolam 0.5 mg tablet 0.5 mg PO Q4-6H PRN Anxiety 10/06/22 10/06/22 etonogestrel 68 mg subdermal 1 implant subdermal ONCE 10/06/22 10/06/22 implant (Nexplanon) sumatriptan succinate 100 mg tablet 100 mg PO DAILY PRN Migraine 10/06/22 10/06/22 Headache Allergies Allergy/AdvReac Type Severity Reaction Status Date / Time No Known Allergies Allergy Verified 12/10/22 15:40 [facility] Past Medical History Medical History (Updated 12/10/22 @ 18:04 by Danie Goldsmith PA-C) Anxiety Bronchitis Fracture rt shoulder, lt elbow Migraines Rib fracture Surgical History Surgical History H/O hernia repair with stent History of kidney surgery kidney reflux surgery Family History Family History Sibling Hypertension Heart disease Asthma Diabetes mellitus Father Hypertension Social History Social History Smoking status: Never smoker Second hand tobacco smoke exposure: No Alcohol intake: never Substance use: current Gender identity (if verbalized by the patient): Female Sexual Orientation (if Verbalized by the Patient): Straight or Heterosexual Spiritual care concerns: No Exam Narrative: GENERAL: Well-appearing, well-nourished, and in no acute distress. HEAD: Normocephalic, atraumatic. EYES: PERRLA and EOMI. ENT: Nares clear, no rhinorrhea or epistaxis. Mucous membranes moist. Oropharynx without tonsillar hypertrophy exudate or other lesions. NECK: Supple. No adenopathy or masses. neck pain is worse with rotation to the left. CHEST: No respiratory distress. Clear to auscultation. No wheezes rales or rhonchi HEART: Regular rate and rhythm. No murmur heard. Normal peripheral pulses. ABDOMEN: Soft, nontender, nondistended, normal active bowel sounds. MSK: No CT LS midline tenderness. No bony deformities or step-offs. MSK exam is otherwise benign. Normal range of motion. No edema. SKIN: Warm, dry, no rash. NEURO: Alert and oriented x3. No focal deficits. 5 out of 5 strength and sensation throughout all the extremities. PSYCH: Normal mood and affect. Course Vital Signs Vital signs: Vital Signs Temperature 98.4 F 12/10/22 14:26 Pulse Rate 82 12/10/22 14:26 Respiratory Rate 18 12/10/22 14:26 Blood Pressure 140/82 12/10/22 14:26 Pulse Oximetry 100 12/10/22 14:26 Oxygen Delivery Room Air 12/10/22 14:26 Temperature 98.4 F 12/10/22 14:26 Pulse Rate 68 12/10/22 18:09 Respiratory Rate 18 12/10/22 18:09 Blood Pressure 110/62 12/10/22 18:09 Pulse Oximetry 100 12/10/22 18:09 Oxygen Delivery Room Air 12/10/22 14:26 Medical Decision Making [facility] Narrative Medical decision making narrative: This is a 27-year-old female who presents to the ED with chief complaint of neck pain following an injury that occurred last night. Vitals are normal. She has some paraspinal neck tenderness. She has
[2022-12-10] MEDS: diphenhydrAMINE HCl INJ 50 MG/ML VIAL 25 MG IV PUSH (17:01)
[2022-12-10] MEDS: KETOROLAC 15 MG/ML VIAL (*BKC) IV PUSH (17:01)
[2022-12-10 18:09] VITALS: BP 110/62; PULSE 68; RESP 18; O2SAT 100
== END 2022-12-10 18:09 | disposition home or self-care (01) ==
PROVIDERS: Emergency Provider Physician Assistant; PCP Nurse Practitioner Family
DX: S16.1XXA Strain of muscle, fascia and tendon at neck level, initial encounter (principal); R51.9 Headache, unspecified; F41.9 Anxiety disorder, unspecified; W51.XXXA Accidental striking against or bumped into by another person, initial encounter
CPT/HCPCS: 96368; 96374; 96375; 99284; J0780; J1200; J1885

== ENCOUNTER 2023-01-05 16:03 | Emergency (ER) | payer OTHER, SELFPAY ==
[2023-01-05 16:08] VITALS: BP 119/83; PULSE 78; RESP 16; TEMP 36.8; O2SAT 100
--- NOTE | 2023-01-05 19:06 | PC.NURSE ---
Patient report given to MAX Gillis. All questions answered and care of patient transferred.
--- NOTE | 2023-01-05 19:34 | ED.GENADULT ---
HPI - General Adult General Chief complaint: Neck Pain/Injury Stated complaint: neck pain x weeks Time Seen by Provider: 01/05/23 18:10 Source: patient Mode of arrival: ambulatory Limitations: no limitations History of Present Illness HPI narrative: This is a 27-year-old female who presents to the ED with chief complaint of neck pain. She had an injury a few weeks ago and was seen by myself at that time. She states initially it felt like it was getting better but now she states the pain is returning. She reports pain in the bilateral trapezius muscles as well as the right scapular area. She feels like pain radiates down the spine at times. Denies any new numbness, weakness. Denies any new injuries. Denies fevers or chills, nausea or vomiting. Denies any IV drug abuse. Related Data Home Medications Medication Instructions Recorded Confirmed alprazolam 0.5 mg tablet 0.5 mg PO Q4-6H PRN Anxiety 10/06/22 10/06/22 etonogestrel 68 mg subdermal 1 implant subdermal ONCE 10/06/22 10/06/22 implant (Nexplanon) sumatriptan succinate 100 mg tablet 100 mg PO DAILY PRN Migraine 10/06/22 10/06/22 Headache Allergies Allergy/AdvReac Type Severity Reaction Status Date / Time No Known Allergies Allergy Verified 12/10/22 15:40 Review of Systems Review of Systems: All systems as dictated in [facility] Past Medical History Medical History (Updated 01/05/23 @ 19:46 by Daine Goldsmith PA-C) Anxiety Bronchitis Fracture rt shoulder, lt elbow Migraines Rib fracture Surgical History Surgical History H/O hernia repair with stent History of kidney surgery kidney reflux surgery Family History Family History Sibling Hypertension Heart disease Asthma Diabetes mellitus Father Hypertension Social History Social History Smoking status: Never smoker Second hand tobacco smoke exposure: No Alcohol intake: never Substance use: current Gender identity (if verbalized by the patient): Female Sexual Orientation (if Verbalized by the Patient): Straight or Heterosexual Spiritual care concerns: No Exam Narrative: GENERAL: Well-appearing, well-nourished, and in no acute distress. HEAD: Normocephalic, atraumatic. EYES: PERRLA and EOMI. ENT: Nares clear, no rhinorrhea or epistaxis. Mucous membranes moist. Oropharynx without tonsillar hypertrophy exudate or other lesions. NECK: Supple. No adenopathy or masses. Full range of motion of the neck. Slight pain with leftward rotation and flexion. Negative meningeal signs. Mild tenderness in the bilateral upper trapezius distributions as well as the right scapular area. CHEST: No respiratory distress. Clear to auscultation. No wheezes rales or rhonchi HEART: Regular rate and rhythm. No murmur heard. Normal peripheral pulses. ABDOMEN: Soft, nontender, nondistended, normal active bowel sounds. MSK: Normal range of motion. No edema. SKIN: Warm, dry, no rash. NEURO: Alert and oriented x3. No focal deficits. 5 out of 5 strength and sensation in the upper and lower extremities. She is ambulatory. PSYCH: Normal mood and affect. Course Vital Signs Vital signs: Vital Signs Temperature 98.3 F 01/05/23 16:08 Pulse Rate 78 01/05/23 16:08 Respiratory Rate 16 01/05/23 16:08 Blood Pressure 119/83 01/05/23 16:08 Pulse Oximetry 100 01/05/23 16:08 Temperature 98.3 F 01/05/23 16:08 Pulse Rate 79 01/05/23 19:54 Respiratory Rate 18 01/05/23 19:54 Blood Pressure 125/89 01/05/23 19:54 Pulse Oximetry 99 01/05/23 19:54 Medical Decision Making [facility] Narrative Medical decision making narrative: This is a 27-year-old female who presents to the ED with chief complaint of neck pain ongoing for the past several weeks. Vitals are normal. Exam shows
[2023-01-05 19:54] VITALS: BP 125/89; PULSE 79; RESP 18; O2SAT 99
== END 2023-01-05 19:57 | disposition home or self-care (01) ==
PROVIDERS: Emergency Provider Physician Assistant; PCP Nurse Practitioner Family
DX: S16.1XXD Strain of muscle, fascia and tendon at neck level, subsequent encounter (principal); F41.9 Anxiety disorder, unspecified; W51.XXXD Accidental striking against or bumped into by another person, subsequent encounter
CPT/HCPCS: 99283

== ENCOUNTER 2023-04-03 10:39 | Emergency (ER) | payer OTHER, SELFPAY ==
--- NOTE | ~2023-04-03 | US_ITS ---
EXAMINATION: US OB <= 14 weeks fetus DATE: 04/03/2023 14:42 INDICATION: Vaginal bleeding and spotting during first trimester TECHNIQUE: Real-time pelvic ultrasound utilizing both a transvaginal and transabdominal probe was pe rformed. The interpreting radiologist was not present for the study. COMPARISON: None. FINDINGS: The uterus measures 9.7 x 7.5 x 10.1 cm. There is an intrauterine gestational sac. A yolk sac and fe franchesca pole are identified. The crown rump length measures 4.2 cm, which correlates with an estimated ge stational age of 11 weeks and 1 days. heart motion is identified measuring 155 beats per minute (bpm) by M-mode Doppler. 2.0 x 0.8 x 0.7 cm anechoic subchorionic hematoma at the right cephalad mar gin of the gestational sac. The right ovary measures 2.0 x 2.0 x 1.1 cm. The left ovary measures 3.2 x 2.7 x 1.6 cm. Vascular miguel w identified at both ovaries on color Doppler. There is no free fluid in the pelvis. IMPRESSION: 1. Single living fetus with heart of 155 bpm. 2. Gestational age by ultrasound of 11 weeks 1 day(s) +/- 7 day(s) with ultrasound estimated date of delivery (DANNY) of 10/22/2023. 3. Small subchorionic hematoma. Reviewed, dictated and finalized at location A. NICAL COORDINATOR IMPRESSION: 1. Single living fetus with heart of 155 bpm. 2. Gestational age by ultrasound of 11 weeks 1 day(s) +/- 7 day(s) with ultras ound estimated date of delivery (DANNY) of 10/22/2023. 3. Small subchorionic hematoma.
[2023-04-03 10:51] VITALS: BP 113/87; PULSE 94; RESP 20; TEMP 36.4; O2SAT 100
[2023-04-03 11:00] VITALS: BP 128/90; PULSE 92; RESP 20; O2SAT 100
[2023-04-03 11:13] LABS: Appearance Urine Clear (Clear); Bacteria Urine Rare /hpf; Bilirubin Urine Negative (Negative); Blood Urine 2+ (Negative); Color Urine Yellow (Yellow); Glucose Urine UA Negative (Negative); Ketones Urine Negative (Negative); Leukocyte Esterase Ur 1+ LEU/UL (Negative); Nitrate Urine Negative (Negative); Non Pathogenic Casts 0-2; Protein Urine Negative (Negative); RBC Urine 0-2 /hpf (0-2); Specific Grav Ur 1.017 (1.001-1.035); Squamous Epithelial Cell Urine Occasional /hpf (Few); pH Urine 7.5 (5.0-9.0)
[2023-04-03 11:15] LABS: Add Urine Microscopic? YES
--- NOTE | 2023-04-03 11:26 | ED.FEMALEGU ---
HPI - Female Genitourinary General Chief complaint: Urogenital-Female Stated complaint: 10wk preg, hematuria Time Seen by Provider: 04/03/23 10:50 Source: patient Mode of arrival: ambulatory Limitations: no limitations History of Present Illness HPI Narrative: Patient is a 27-year-old female who presents to the ED with report of vaginal spotting. Patient is G3, P2 and currently almost 11 weeks gestation. Patient sees Rossy Ernst with [facility]. She reports she woke up in the middle the night last night with some lower abdominal cramping. She noticed a small amount of vaginal spotting when she urinated and with wiping. She had several episodes throughout the night. Denies seeing any clots or tissue. She does still complain of mild lower abdominal cramping. Denies nausea, vomiting, fevers, dysuria. Denies previous history of subchorionic hematoma. Patient has had a normal ultrasound several weeks ago for this , confirmed IUP. Related Data Home Medications Medication Instructions Recorded Confirmed alprazolam 0.5 mg tablet 0.5 mg PO Q4-6H PRN Anxiety 10/06/22 10/06/22 etonogestrel 68 mg subdermal 1 implant subdermal ONCE 10/06/22 10/06/22 implant (Nexplanon) sumatriptan succinate 100 mg tablet 100 mg PO DAILY PRN Migraine 10/06/22 10/06/22 Headache Allergies Allergy/AdvReac Type Severity Reaction Status Date / Time No Known Allergies Allergy Verified 12/10/22 15:40 Review of Systems Review of Systems: CONSTITUTIONAL: Denies fever, chills, or sweats. GASTROINTESTINAL: See HPI. GENITOURINARY: See HPI. SKIN: Denies rash or itching. MUSCULOSKELETAL: Denies back pain, joint pain, or myalgia. All systems reviewed & are unremarkable except as noted in HPI and below PMFSH Past Medical History Medical History (Updated 04/03/23 @ 15:10 by Roberta Lowery PA-C) Anxiety Bronchitis Fracture rt shoulder, lt elbow Migraines Rib fracture Surgical History Surgical History H/O hernia repair with stent History of kidney surgery kidney reflux surgery Family History Family History Sibling Hypertension Heart disease Asthma Diabetes mellitus Father Hypertension Social History Social History Smoking status: Never smoker Second hand tobacco smoke exposure: No Alcohol intake: never Substance use: current Gender identity (if verbalized by the patient): Female Sexual Orientation (if Verbalized by the Patient): Straight or Heterosexual Spiritual care concerns: No Exam Narrative: GENERAL: Well appearing, well-nourished, non-toxic, in no acute distress. HEAD: Normocephalic, atraumatic. NECK: Supple. No adenopathy, no masses. RESPIRATORY: Airway patent, respirations nonlabored. Clear to auscultation bilaterally, no rales, rhonchi, wheezing. CARDIOVASCULAR: Regular rate and rhythm without murmurs, rubs, or gallops. Radial pulses 2+ and equal bilaterally. ABDOMINAL: Soft, minimal tenderness throughout lower abdomen, nondistended, no hepatosplenomegaly. Normoactive BS. MUSCULOSKELETAL: Moves all extremities. No gross deformities. SKIN: Warm, dry, normal color. No rashes. NEURO: A&O X3. Speech clear. Cranial nerves II-XII grossly intact. Steady gait. No ataxic movements. PSYCHIATRIC: Appropriate mood and affect. Normal interaction. Course Vital Signs Vital signs: Vital Signs Temperature 97.6 F 04/03/23 10:51 Pulse Rate 94 04/03/23 10:51 Respiratory Rate 20 04/03/23 10:51 Blood Pressure 113/87 04/03/23 10:51 Pulse Oximetry 100 04/03/23 10:51 Oxygen Delivery Room Air 04/03/23 10:51 Temperature 97.6 F 04/03/23 10:51 Pulse Rate 83 04/03/23 14:50 Respiratory Rate 20 04/03/23 14:50 Blood Pressure 122/82 04/03/23 14:50 Pulse Oximetry 100 04/03/23 14
[2023-04-03 11:41] LABS: Basophils Percent Auto 0.4 % (0.2-1.2); Eosinophils Absolute Auto 0.1 K/mm3 (0-0.3); Eosinophils Percent Auto 1.4 % (0-4.4); Hematocrit 45.4 % (37.0-47.0); Hemoglobin 14.6 g/dL (12.0-15.0); Immature Granulocyte Absolute 0.03 K/mm3 (0.00-0.031); Immature Granulocyte Percent A 0.3 % (0-0.5); Lymphocytes Percent Auto 17.8 % (18.3-44.2); Mean Corpuscular HGB Conc 32.2 g/dl (32-36); Mean Corpuscular Hemoglobin 30.4 pg (26-34); Mean Corpuscular Volume 94.6 fl (80-100); Mean Platelet Volume 12.1 fl (7.4-10.4); Monocytes Absolute Auto 0.5 K/mm3 (0.1-0.6); Monocytes Percent Auto 5.4 % (2.6-8.5); Neutrophils Absolute Auto 7.1 K/mm3 (1.3-6.7); Neutrophils Percent Auto 74.7 % (45.5-73.1); Platelet Count Result 228 k/mm3 (150-375); Red Cell Distribution Width 13.1 % (11.5-14.5); White Blood Count 9.6 K/mm3 (4.5-10.0)
[2023-04-03 11:55] LABS: Alanine Aminotransferase 47 U/L (6-35); Albumin Level 3.8 g/dL (3.5-5.1); Alkaline Phosphatase 83 U/L (38-126); Anion Gap 8 mmol/L (8-16); Aspartate Amino Transferase 25 U/L (14-36); Bilirubin,Total 0.4 mg/dL (0.2-1.3); Blood Urea Nitrogen 6 mg/dL (7-17); Calcium 9.1 mg/dL (8.4-10.2); Carbon Dioxide 21 mmol/L (22-30); Chloride 108 mmol/L (98-107); Estimated CRCL calculation 188 ml/min; Estimated Glomerular Filt Rate > 60; Glucose 84 mg/dL (65-110); Potassium 3.7 mmol/L (3.4-5.0); Sodium 137 mmol/L (137-145)
[2023-04-03] MEDS: ACETAMINOPHEN 500 MG TABLET 1000 MG PO (13:50)
[2023-04-03] MEDS: RHO(D) IMMUNE GLOBULIN 300 MCG/2 ML SYRINGE IM (14:46)
--- NOTE | 2023-04-03 14:46 | PC.NURSE ---
Per lab staff, they are stating we have to manually override rhogam. Patient rhogam was not sent up with a box.
--- NOTE | 2023-04-03 14:46 | PC.NURSE ---
Rho axel shot administered to left ventrogluteal, unit #[id number]
[2023-04-03 14:50] VITALS: BP 122/82; PULSE 83; RESP 20; O2SAT 100
== END 2023-04-03 15:21 | disposition home or self-care (01) ==
PROVIDERS: Emergency Provider Physician Assistant; PCP Nurse Practitioner Family
DX: O41.8X10 Other specified disorders of amniotic fluid and membranes, first trimester, not applicable or unspecified (principal); O20.9 Hemorrhage in early pregnancy, unspecified; O26.891 Other specified pregnancy related conditions, first trimester; R82.71 Bacteriuria; Z3A.11 11 weeks gestation of pregnancy
CPT/HCPCS: 36415; 76801; 80053; 81001; 84702; 85025; 85461; 86850; 86900; 86901; 87086; 90384; 96372; 99284; A9270; J2790

== ENCOUNTER 2023-07-10 15:59 | Outpatient (CLI) | payer OTHER, SELFPAY ==
[2023-07-10] VITALS (8 sets, daily range): BP systolic 104–130; BP diastolic 68–82; PULSE 84–97; RESP 18; TEMP 36.6; O2SAT 100; BMI 29.3
[2023-07-10] MEDS: ACETAMINOPHEN 500 MG TABLET PO (16:38)
[2023-07-10] MEDS: ONDANSETRON HCL ODT 4 MG TABLET PO (16:39)
[2023-07-10] MEDS: CAFFEINE 200 MG TABLET PO (16:39)
[2023-07-10 16:42] LABS: Basophils Percent Auto 0.3 % (0.2-1.2); Eosinophils Absolute Auto 0.1 K/mm3 (0-0.3); Eosinophils Percent Auto 0.9 % (0-4.4); Hematocrit 37.6 % (37.0-47.0); Hemoglobin 12.1 g/dL (12.0-15.0); Immature Granulocyte Absolute 0.04 K/mm3 (0.00-0.031); Immature Granulocyte Percent A 0.4 % (0-0.5); Lymphocytes Absolute Auto 1.39 K/mm3 (0.9-3.2); Mean Corpuscular HGB Conc 32.2 g/dl (32-36); Mean Corpuscular Hemoglobin 30.7 pg (26-34); Mean Corpuscular Volume 95.4 fl (80-100); Mean Platelet Volume 11.7 fl (7.4-10.4); Monocytes Absolute Auto 0.6 K/mm3 (0.1-0.6); Monocytes Percent Auto 5.9 % (2.6-8.5); Neutrophils Absolute Auto 8.5 K/mm3 (1.3-6.7); Neutrophils Percent Auto 79.5 % (45.5-73.1); Platelet Count Result 273 k/mm3 (150-375); Red Blood Count 3.94 M/mm3 (4.2-5.4); Red Cell Distribution Width 13.2 % (11.5-14.5); White Blood Count 10.7 K/mm3 (4.5-10.0)
--- NOTE | 2023-07-10 16:43 | PC.NURSE ---
Patient presented to L&D unit with complaints of a migraine unresolved by Chastity, bilateral lower extremity edema, and nausea. Called Dr. Buckner for orders. Received verbal orders for PIH workup as well as 500 mg PO Tylenol, PO caffeine, and Zofran ODT. Upon assessing patient's urine, it was found to be extremely concentrated. Patient educated on importance of orally hydrating and that being dehydrated can intensify the symptoms she is experiencing. Patient given 500 ml jug of water with instructions to drink entire jug. Patient verbalizes understanding and states she will drink the water.
[2023-07-10 16:45] LABS: Appearance Urine Turbid (Clear); Bacteria Urine 4+ /hpf; Bilirubin Urine 1+ (Negative); Blood Urine Negative (Negative); Color Urine Dark Yellow (Yellow); Glucose Urine UA Negative (Negative); Ketones Urine Trace mg/dL (Negative); Leukocyte Esterase Ur 2+ LEU/UL (Negative); Nitrate Urine Positive (Negative); Non Pathogenic Casts 0-2; Protein Urine Trace mg/dL (Negative); RBC Urine 0-2 /hpf (0-2); Specific Grav Ur 1.021 (1.001-1.035); Squamous Epithelial Cell Urine Few /hpf (Few); WBC Urine >100 /hpf; pH Urine 7.5 (5.0-9.0)
[2023-07-10 16:47] LABS: Creatinine Urine 165.2 mg/dL; Total Protein Urine Random 21 mg/dL; Ur Ttl Prot Creatinine Ratio 0.13 mg/mg (0-0.20)
[2023-07-10 16:50] LABS: Add Urine Microscopic? YES
[2023-07-10 16:53] LABS: Alanine Aminotransferase 11 U/L (6-35); Albumin Level 3.3 g/dL (3.5-5.1); Alkaline Phosphatase 115 U/L (38-126); Anion Gap 8 mmol/L (8-16); Aspartate Amino Transferase 21 U/L (14-36); Bilirubin,Total 0.8 mg/dL (0.2-1.3); Blood Urea Nitrogen 7 mg/dL (7-17); Calcium 8.7 mg/dL (8.4-10.2); Carbon Dioxide 20 mmol/L (22-30); Chloride 110 mmol/L (98-107); Estimated CRCL calculation 154 ml/min; Estimated Glomerular Filt Rate > 60; Glucose 106 mg/dL (65-110); Potassium 3.3 mmol/L (3.4-5.0); Sodium 138 mmol/L (137-145); Uric Acid 4.9 mg/dL (2.5-7.5)
[2023-07-10] MEDS: METOCLOPRAMIDE HCL 10 MG TABLET PO (17:14)
[2023-07-10] MEDS: diphenhydrAMINE HCl CAP 25 MG CAPSULE PO (17:14)
[2023-07-10] MEDS: LIDOCAINE HCL 1% LOCAL INJ 10 ML VIAL 2.1 ML XX (17:35)
[2023-07-10] MEDS: cefTRIAXone 1 GM VIAL IM (17:35)
--- NOTE | 2023-07-10 18:10 | PC.NURSE ---
Called Dr. Buckner at 1609 with lab results and notified that patient states her headache has not improved. Verbal orders received to give 10 mg PO Reglan and 25 mg PO Benadryl as well as 1gm Rocephin IM. Verbal orders received that patient may discharge to home when she feels well enough to leave with a prescription sent to her pharmacy for 7 days worth of 100mg Macrobid PO BID. Patient agrees with plan of care and has no questions at this time.
--- NOTE | 2023-07-10 18:12 | PC.NURSE ---
Patient requests to discharge home at this time.
--- NOTE | 2023-07-10 18:20 | LDADM ---
This patient, Cullen Frias, was admitted to [facility] on 07/10/23 at 15:59. Plans for labor, pain management and were discussed with patient. Patient/family oriented to hospital policies and general routines including ID bracelet, bed and alarms, visiting hours, pain management, procedures, bathroom and other care routines, personal items, smoking policy, room service/diet and guest tray routines, security routines, and visiting hours. Patient/Family are encouraged to report perceived risks to care and to ask questions if they do not understand what they are told or what they should do. See OBIX for further documentation.
== END 2023-07-10 18:16 | disposition home or self-care (01) ==
LOC: ANHOBPP 17:45 → ANHOBOP 07-12 08:13 → ANHOBPP 07-12 08:13
PROVIDERS: Visit Provider Obstetrics & Gynecology
DX: O13.9 Gestational [pregnancy-induced] hypertension without significant proteinuria, unspecified trimester (principal); Z3A.00 Weeks of gestation of pregnancy not specified
CPT/HCPCS: 36415; 59025; 80053; 81001; 82570; 84156; 84550; 85025; 87077; 87086; 87186; 99199; A9270; J0696

== ENCOUNTER 2023-08-16 14:54 | Outpatient (RCR) | payer OTHER, SELFPAY ==
[2023-08-16 16:33] LABS: Hematocrit 38.9 % (37.0-47.0); Hemoglobin 12.1 g/dL (12.0-15.0)
[2023-08-16 16:43] LABS: Glucose 1 Hour PP 50gm Dose 56 mg/dL
[2023-08-16 17:24] LABS: HIV 1/2 Ab P24 Ag Result Negative (Negative)
[2023-08-17] MEDS: RHO(D) IMMUNE GLOBULIN 300 MCG/2 ML SYRINGE IM (17:34)
== END 2023-11-14 23:59 | disposition home or self-care (01) ==
LOC: ANHLAB 14:54
PROVIDERS: Visit Provider Advanced Practice Midwife
DX: Z11.4 Encounter for screening for human immunodeficiency virus [HIV] (principal); Z29.13 Encounter for prophylactic Rho(D) immune globulin; O36.0130 Maternal care for anti-D [Rh] antibodies, third trimester, not applicable or unspecified; Z3A.00 Weeks of gestation of pregnancy not specified
CPT/HCPCS: 36415; 82947; 85014; 85018; 85461; 86703; 86850; 86900; 86901; 90384; 96372; G0432; J2790

== ENCOUNTER 2023-08-30 14:48 | Observation (INO) | payer OTHER, SELFPAY ==
[2023-08-30] VITALS (8 sets, daily range): BP systolic 96–112; BP diastolic 58–70; PULSE 78–90
--- NOTE | ~2023-08-30 | US_ITS ---
EXAMINATION: US OB BPP wo non-stress DATE: 08/30/2023 18:34 INDICATION: decel . TECHNIQUE: Real-time ultrasound of the pelvis was performed. COMPARISON: None. FINDINGS: There is a single living fetus in vertex presentation, longitudinal lie. The placenta is anterior. F etal heart rate is 147 bpm. The deepest vertical pocket measures 4.0 cm, which is normal. Biophysical profile performed by the technologist: breathing (30 sec sustained breathing in 30 minutes): 2 out of 2. movement (3 gross body movements in 30 minutes: 2 out of 2. tone (one episode of rpeptch-bzbskmuhd-ywxugdi limb movement): 2 out of 2. Amniotic fluid pocket (2 cm): 2 out of 2. Total score: 8 out of 8. IMPRESSION: Single living fetus in vertex presentation. Biophysical profile 8 out of 8. Reviewed, dictated and finalized at location K.
--- NOTE | ~2023-08-30 | US_ITS ---
EXAMINATION: US renal BI DATE: 08/30/2023 18:35 INDICATION: back pain TECHNIQUE: Multiple grayscale and Doppler ultrasound images of the kidneys were obtained. COMPARISON: CT abdomen pelvis 08/20/2022, report only. FINDINGS: The right kidney measures 12.3 x 5.0 x 6.2 cm. The left kidney measures 11.4 x 4.6 x 4.6 cm. The kidn eys demonstrate normal parenchymal echogenicity. There is no hydronephrosis. The bladder is normal. IMPRESSION: Unremarkable renal sonogram findings. Reviewed, dictated and finalized at location K.
[2023-08-30 17:19] LABS: Fetal Fibronectin Negative
--- NOTE | 2023-08-30 17:38 | PC.NURSE ---
1658: RN phoned CNM to inform her of SVE, complaints of back pain, and current deceleration of FHT happening during the phone call. CNM also aware that patient states she may have passed a kidney tone yesterday and that is when the back pain started. Orders to get a kidney ultrasound, BPP, and give Celestone.
--- NOTE | 2023-08-30 18:12 | OBADM ---
This patient, Cullen Frias, admitted to the OB room [facility] for observation. Patient/family oriented to hospital policies and general routines including ID bracelet, bed and alarms, visiting hours, pain management, procedures, bathroom and other care routines, personal items, smoking policy, room service/diet, and visiting hours. Patient/Family are encouraged to report perceived risks to care and to ask questions if they do not understand what they are told or what they should do.
--- NOTE | 2023-08-30 18:22 | PC.NURSE ---
1800: RN reported off to MAX Figueroa.
[2023-08-30 18:57] LABS: Basophils Percent Auto 0.2 % (0.2-1.2); Eosinophils Absolute Auto 0.1 K/mm3 (0-0.3); Eosinophils Percent Auto 0.8 % (0-4.4); Hematocrit 37.4 % (37.0-47.0); Hemoglobin 11.7 g/dL (12.0-15.0); Immature Granulocyte Absolute 0.04 K/mm3 (0.00-0.031); Immature Granulocyte Percent A 0.3 % (0-0.5); Lymphocytes Absolute Auto 2.26 K/mm3 (0.9-3.2); Lymphocytes Percent Auto 17.6 % (18.3-44.2); Mean Corpuscular HGB Conc 31.3 g/dl (32-36); Mean Corpuscular Volume 92.8 fl (80-100); Mean Platelet Volume 11.9 fl (7.4-10.4); Monocytes Absolute Auto 0.8 K/mm3 (0.1-0.6); Monocytes Percent Auto 6.4 % (2.6-8.5); Neutrophils Absolute Auto 9.6 K/mm3 (1.3-6.7); Neutrophils Percent Auto 74.7 % (45.5-73.1); Platelet Count Result 258 k/mm3 (150-375); Red Blood Count 4.03 M/mm3 (4.2-5.4); Red Cell Distribution Width 13.1 % (11.5-14.5); White Blood Count 12.9 K/mm3 (4.5-10.0)
--- NOTE | 2023-08-30 19:09 | PC.NURSE ---
Spoke with Rossy Ernst regarding results of BPP, Renal U/S, and CBC. Patient ok to discharge per CNMW. Patient to keep her appointment with Essence Ernst tomorrow. Will give dose of steroid before patient leaves facility. Will instruct to come back for second dose tomorrow.
[2023-08-30] MEDS: BETAMETHASONE SOD PHOS/ACETATE 30 MG/5 ML VIAL 12 MG IM (19:34)
--- NOTE | 2023-08-30 19:37 | PC.NURSE ---
Instructed patient to come back in for second dose of steroids tomorrow. Discharge instructions given. Patient verbalized understanding. Walked out of facility with no distress noted.
--- NOTE | 2023-09-02 07:40 | P.PNOB_ITS ---
OB - Triage/Final Diagnosis Visit Information Date of evaluation: 08/30/23 Reason for evaluation: threatened labor Comments/Additional reasons for admission: I have assessed the risk for this patient, Cullen Frias, and determined that she would benefit from observation care. Evaluation Laboratory results: Laboratory Tests 08/30/23 08/30/23 16:33 18:46 WBC 12.9 H RBC 4.03 L Hgb 11.7 L Hct 37.4 MCV 92.8 MCH 29.0 MCHC 31.3 L RDW 13.1 Plt Count 258 MPV 11.9 H Immature Gran % (Auto) 0.3 Neut % (Auto) 74.7 H Lymph % (Auto) 17.6 L [place] % (Auto) 6.4 Eos % (Auto) 0.8 Baso % (Auto) 0.2 Lymph # (Auto) 2.26 [place] # (Auto) 0.8 H Eos # (Auto) 0.1 Baso # (Auto) 0.0 Abs Immat Gran (auto) 0.04 H Absolute Neuts (auto) 9.6 H Absolute Nucleated RBC 0.000 Nucleated RBC % 0.0 Fibronectin Negative
== END 2023-08-30 19:38 | disposition home or self-care (01) ==
PROVIDERS: Admitting Provider Obstetrics & Gynecology; PCP Advanced Practice Midwife; Visit Provider Obstetrics & Gynecology
DX: O47.9 False labor, unspecified (principal); Z3A.00 Weeks of gestation of pregnancy not specified
CPT/HCPCS: 36415; 76775; 76819; 82731; 85025; 96372; G0378; G0379; J0702

== ENCOUNTER 2023-08-31 19:05 | Outpatient (CLI) | payer OTHER, SELFPAY ==
[2023-08-31] MEDS: BETAMETHASONE SOD PHOS/ACETATE 30 MG/5 ML VIAL 12 MG IM (19:36)
== END 2023-08-31 19:06 | disposition home or self-care (01) ==
LOC: ANHOBOP 19:15
PROVIDERS: PCP Advanced Practice Midwife; Visit Provider Advanced Practice Midwife
DX: Z34.90 Encounter for supervision of normal pregnancy, unspecified, unspecified trimester (principal); Z3A.00 Weeks of gestation of pregnancy not specified
CPT/HCPCS: 96372; J0702

== ENCOUNTER 2023-09-08 16:29 | Outpatient (CLI) | payer OTHER, SELFPAY ==
[2023-09-08] VITALS (8 sets, daily range): BP systolic 102–110; BP diastolic 60–74; PULSE 82–96; BMI 29.8
[2023-09-08 17:02] LABS: Appearance Urine Cloudy (Clear); Bacteria Urine 4+ /hpf; Bilirubin Urine 1+ (Negative); Blood Urine Negative (Negative); Color Urine Dark Yellow (Yellow); Glucose Urine UA Negative (Negative); Ketones Urine 1+ mg/dL (Negative); Leukocyte Esterase Ur 2+ LEU/UL (Negative); Nitrate Urine Positive (Negative); Non Pathogenic Casts 0-2; Protein Urine Negative (Negative); RBC Urine 0-2 /hpf (0-2); Specific Grav Ur 1.019 (1.001-1.035); Squamous Epithelial Cell Urine Few /hpf (Few); WBC Urine 51-100 /hpf (0-3)
[2023-09-08 17:04] LABS: Basophils Percent Auto 0.3 % (0.2-1.2); Eosinophils Absolute Auto 0.1 K/mm3 (0-0.3); Eosinophils Percent Auto 0.6 % (0-4.4); Hematocrit 37.8 % (37.0-47.0); Hemoglobin 12.2 g/dL (12.0-15.0); Immature Granulocyte Absolute 0.06 K/mm3 (0.00-0.031); Immature Granulocyte Percent A 0.5 % (0-0.5); Lymphocytes Absolute Auto 1.68 K/mm3 (0.9-3.2); Lymphocytes Percent Auto 13.5 % (18.3-44.2); Mean Corpuscular HGB Conc 32.3 g/dl (32-36); Mean Platelet Volume 12.1 fl (7.4-10.4); Monocytes Absolute Auto 0.8 K/mm3 (0.1-0.6); Monocytes Percent Auto 6.3 % (2.6-8.5); Neutrophils Absolute Auto 9.8 K/mm3 (1.3-6.7); Neutrophils Percent Auto 78.8 % (45.5-73.1); Platelet Count Result 324 k/mm3 (150-375); Red Cell Distribution Width 13.1 % (11.5-14.5); White Blood Count 12.5 K/mm3 (4.5-10.0)
[2023-09-08 17:04] LABS: Add Urine Microscopic? YES
[2023-09-08 17:14] LABS: Alanine Aminotransferase 13 U/L (6-35); Albumin Level 3.5 g/dL (3.5-5.1); Alkaline Phosphatase 156 U/L (38-126); Anion Gap 5 mmol/L (4-12); Aspartate Amino Transferase 23 U/L (14-36); Bilirubin,Total 0.7 mg/dL (0.2-1.3); Blood Urea Nitrogen 7 mg/dL (7-17); Calcium 8.7 mg/dL (8.4-10.2); Carbon Dioxide 20 mmol/L (22-30); Chloride 110 mmol/L (98-107); Estimated Glomerular Filt Rate > 60; Glucose 92 mg/dL (65-110); Potassium 3.7 mmol/L (3.4-5.0); Sodium 135 mmol/L (137-145); Uric Acid 5.1 mg/dL (2.5-7.5)
[2023-09-08 17:31] LABS: Creatinine Urine 144.3 mg/dL; Total Protein Urine Random 10 mg/dL; Ur Ttl Prot Creatinine Ratio 0.07 mg/mg (0-0.20)
--- NOTE | 2023-09-08 18:17 | PC.NURSE ---
[address] Buckner and updated on [facility] labs, blood pressures and patients report of prolonged headache and spotty vision. Orders received for pain medication and additional antibiotics for UTI.
--- NOTE | 2023-09-08 18:21 | PC.NURSE ---
1815 Report given to MAX Ross to consume care of patient at this time.
[2023-09-08] MEDS: CEPHALEXIN 500 MG CAPSULE PO (18:28)
[2023-09-08] MEDS: CAFFEINE 200 MG TABLET PO (18:28)
[2023-09-08] MEDS: ACETAMINOPHEN 500 MG TABLET 1000 MG PO (18:29)
[2023-09-08] MEDS: METOCLOPRAMIDE HCL 10 MG TABLET PO (19:40)
[2023-09-08] MEDS: diphenhydrAMINE HCl CAP 25 MG CAPSULE PO (19:40)
--- NOTE | 2023-09-08 20:56 | PC.NURSE ---
1926: pt states her headache is just as bad as it has been, states this is what all of her migraines feel like. Dr. Buckner notified of pt status, orders obtained. Instructed to reevaluate pain level in another hour after new medication orders are given. If pain is controlled pt can be discharged. 2056: pt states her headache is much better. states headache was a 10 when she arrived but is now a 3. pt states she would like to go home
== END 2023-09-08 21:14 | disposition home or self-care (01) ==
LOC: ANHOBOP 16:31 → ANHOBPP 16:32
PROVIDERS: Obstetrics & Gynecology; PCP Advanced Practice Midwife; Visit Provider Advanced Practice Midwife
DX: O13.9 Gestational [pregnancy-induced] hypertension without significant proteinuria, unspecified trimester (principal); Z3A.00 Weeks of gestation of pregnancy not specified
CPT/HCPCS: 36415; 59025; 80053; 81001; 82570; 84156; 84550; 85025; 87077; 87086; 87088; 87186; 99199; A9270

== ENCOUNTER 2023-09-10 14:46 | Observation (INO) | payer OTHER, SELFPAY ==
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
[2023-09-10 14:49] VITALS: BP 122/94; PULSE 106; RESP 18; TEMP 36.8; O2SAT 100
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
[2023-09-10] MEDS: ONDANSETRON INJ 4 MG/2 ML VIAL IV PUSH (15:01)
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
[2023-09-10 15:35] VITALS: BMI 28.3
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
[2023-09-10] MEDS: ACETAMINOPHEN 500 MG TABLET 1000 MG PO (16:10)
[2023-09-10 17:36] VITALS: BP 107/74; PULSE 92; PULSE 94; O2SAT 100
[2023-09-10 20:47] VITALS: BP 107/69; PULSE 103; PULSE 104; O2SAT 96
[2023-09-10 20:48] VITALS: TEMP 36.9
[2023-09-10] MEDS: METOCLOPRAMIDE HCL INJ 10 MG/2 ML VIAL IV PUSH (21:15)
[2023-09-10] MEDS: diphenhydrAMINE HCl INJ 50 MG/ML VIAL 25 MG IV PUSH (21:15)
[2023-09-10 23:35] VITALS: BP 110/73; PULSE 88; PULSE 89; O2SAT 97
[2023-09-10 23:36] VITALS: PULSE 89; TEMP 36.6; O2SAT 99
[2023-09-11] VITALS (89 sets, daily range): BP systolic 88–117; BP diastolic 45–79; PULSE 66–102; O2SAT 91–100
[2023-09-11] MEDS: ACETAMINOPHEN 500 MG TABLET 1000 MG PO ×2 (00:09→06:01)
[2023-09-11] MEDS: LACTATED RINGERS 1,000 ML 125 ML IV CONT (00:10)
[2023-09-11] MEDS: METOCLOPRAMIDE HCL INJ 10 MG/2 ML VIAL IV PUSH (05:18)
[2023-09-11] MEDS: diphenhydrAMINE HCl INJ 50 MG/ML VIAL 25 MG IV PUSH (05:18)
[2023-09-11] MEDS: RHO(D) IMMUNE GLOBULIN 300 MCG/2 ML SYRINGE IM (06:03)
--- NOTE | 2023-09-11 09:19 | PC.NURSE ---
Tracing from last night reviewed per Dr Buckner, Orders received for US.
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
[2023-09-11] MEDS: ACETAMINOPHEN/BUTALBITAL/CAFFEINE 325-50-40 MG TABLET (FIORICET) 1 TAB PO (11:37)
--- NOTE | 2023-10-06 21:31 | PM.OBTRLD ---
OB - Triage/Final Diagnosis Visit Information Comments/Additional reasons for admission: I have assessed the risk for this patient, Cullen Frias, and determined that she would benefit from observation care. Evaluation Laboratory results: Laboratory Tests 09/10/23 21:13 Blood Type O Negative Antibody Screen Positive Antibody Identification Passive Due to RH Imm Glob Antigen Identification TNP SHILO, IgG Interpret Not Performed SHILO, Poly Interpret Negative SHILO, Complement Interp Not Performed Screen Negative Baby's Blood Type Not Reportable Baby's SHILO Not Reportable Doses of RhIg Required 1 Final Diagnosis (1) Abdominal pain: Qualifiers: Abdominal location: unspecified location Qualified Code(s): R10.9 - Unspecified abdominal pain Code(s): R10.9 - Unspecified abdominal pain Status: Acute
== END 2023-09-11 14:27 | disposition home or self-care (01) ==
LOC: ANHED 15:20 → ANHOBPP 15:31
PROVIDERS: Admitting Provider Obstetrics & Gynecology; Emergency Provider Student in an Organized Health Care Education/Training Program; Visit Provider Obstetrics & Gynecology
DX: O26.893 Other specified pregnancy related conditions, third trimester (principal); S40.011A Contusion of right shoulder, initial encounter; R10.9 Unspecified abdominal pain; V49.40XA Driver injured in collision with unspecified motor vehicles in traffic accident, initial encounter; Z3A.33 33 weeks gestation of pregnancy
CPT/HCPCS: 36415; 76816; 76819; 85461; 86850; 86880; 86900; 86901; 86902; 90384; 96374; 99285; A9270; G0378; J1200; J2405; J2765; J2790; J7120

== ENCOUNTER 2023-09-26 14:40 | Outpatient (CLI) | payer OTHER, SELFPAY ==
[2023-09-26] VITALS (7 sets, daily range): BP systolic 98–106; BP diastolic 66–70; PULSE 80–103
[2023-09-26 15:17] LABS: Basophils Percent Auto 0.2 % (0.2-1.2); Eosinophils Percent Auto 0.3 % (0-4.4); Hematocrit 36.9 % (37.0-47.0); Hemoglobin 11.9 g/dL (12.0-15.0); Immature Granulocyte Absolute 0.05 K/mm3 (0.00-0.031); Immature Granulocyte Percent A 0.4 % (0-0.5); Lymphocytes Absolute Auto 1.68 K/mm3 (0.9-3.2); Lymphocytes Percent Auto 14.3 % (18.3-44.2); Mean Corpuscular HGB Conc 32.2 g/dl (32-36); Mean Corpuscular Hemoglobin 28.6 pg (26-34); Mean Corpuscular Volume 88.7 fl (80-100); Mean Platelet Volume 12.1 fl (7.4-10.4); Monocytes Absolute Auto 0.7 K/mm3 (0.1-0.6); Monocytes Percent Auto 5.9 % (2.6-8.5); Neutrophils Absolute Auto 9.3 K/mm3 (1.3-6.7); Neutrophils Percent Auto 78.9 % (45.5-73.1); Platelet Count Result 276 k/mm3 (150-375); Red Blood Count 4.16 M/mm3 (4.2-5.4); Red Cell Distribution Width 13.6 % (11.5-14.5); White Blood Count 11.8 K/mm3 (4.5-10.0)
[2023-09-26 15:20] LABS: Appearance Urine Cloudy (Clear); Bacteria Urine 2+ /hpf; Bilirubin Urine Negative (Negative); Blood Urine Negative (Negative); Color Urine Yellow (Yellow); Glucose Urine UA Negative (Negative); Ketones Urine Negative (Negative); Leukocyte Esterase Ur 3+ LEU/UL (Negative); Nitrate Urine Positive (Negative); Non Pathogenic Casts 0-2; Protein Urine Negative (Negative); RBC Urine 0-2 /hpf (0-2); Specific Grav Ur 1.011 (1.001-1.035); Squamous Epithelial Cell Urine Few /hpf (Few); WBC Urine 21-50 /hpf (0-3); pH Urine 7.5 (5.0-9.0)
[2023-09-26] MEDS: ACETAMINOPHEN 500 MG TABLET 1000 MG PO (15:24)
[2023-09-26] MEDS: ONDANSETRON HCL ODT 4 MG TABLET PO (15:24)
[2023-09-26 15:25] LABS: Creatinine Urine 53.2 mg/dL; Total Protein Urine Random 15 mg/dL; Ur Ttl Prot Creatinine Ratio 0.28 mg/mg (0-0.20)
[2023-09-26 15:26] LABS: Alanine Aminotransferase 10 U/L (6-35); Albumin Level 3.1 g/dL (3.5-5.1); Alkaline Phosphatase 172 U/L (38-126); Anion Gap 4 mmol/L (4-12); Aspartate Amino Transferase 17 U/L (14-36); Bilirubin,Total 0.4 mg/dL (0.2-1.3); Blood Urea Nitrogen 5 mg/dL (7-17); Calcium 8.5 mg/dL (8.4-10.2); Carbon Dioxide 22 mmol/L (22-30); Chloride 109 mmol/L (98-107); Estimated Glomerular Filt Rate > 60; Glucose 85 mg/dL (65-110); Potassium 3.7 mmol/L (3.4-5.0); Sodium 135 mmol/L (137-145); Uric Acid 4.7 mg/dL (2.5-7.5)
[2023-09-26 15:40] LABS: Add Urine Microscopic? YES
== END 2023-09-26 16:00 | disposition home or self-care (01) ==
LOC: ANHOBOP 14:47 → ANHLDR 14:47
PROVIDERS: PCP Advanced Practice Midwife; Visit Provider Advanced Practice Midwife
DX: O13.9 Gestational [pregnancy-induced] hypertension without significant proteinuria, unspecified trimester (principal); Z3A.00 Weeks of gestation of pregnancy not specified
CPT/HCPCS: 36415; 59025; 80053; 81001; 82570; 84156; 84550; 85025; 87077; 87086; 87088; 87186; 99199; A9270

== ENCOUNTER 2023-09-30 12:55 | Outpatient (CLI) | payer OTHER, SELFPAY ==
[2023-09-30 13:30] VITALS: BP 100/71; PULSE 93
[2023-09-30 13:45] VITALS: BP 102/72; PULSE 97
[2023-09-30 13:48] LABS: Basophils Percent Auto 0.3 % (0.2-1.2); Eosinophils Percent Auto 0.4 % (0-4.4); Hematocrit 37.6 % (37.0-47.0); Immature Granulocyte Absolute 0.06 K/mm3 (0.00-0.031); Immature Granulocyte Percent A 0.5 % (0-0.5); Lymphocytes Absolute Auto 1.68 K/mm3 (0.9-3.2); Lymphocytes Percent Auto 15.2 % (18.3-44.2); Mean Corpuscular HGB Conc 31.9 g/dl (32-36); Mean Corpuscular Hemoglobin 28.5 pg (26-34); Mean Corpuscular Volume 89.3 fl (80-100); Mean Platelet Volume 12.2 fl (7.4-10.4); Monocytes Absolute Auto 0.7 K/mm3 (0.1-0.6); Monocytes Percent Auto 6.3 % (2.6-8.5); Neutrophils Absolute Auto 8.5 K/mm3 (1.3-6.7); Neutrophils Percent Auto 77.3 % (45.5-73.1); Platelet Count Result 266 k/mm3 (150-375); Red Blood Count 4.21 M/mm3 (4.2-5.4); Red Cell Distribution Width 13.9 % (11.5-14.5)
[2023-09-30] MEDS: diphenhydrAMINE HCl INJ 50 MG/ML VIAL 25 MG IV PUSH (13:50)
[2023-09-30] MEDS: METOCLOPRAMIDE HCL INJ 10 MG/2 ML VIAL IV PUSH (13:53)
[2023-09-30 14:00] VITALS: BP 101/73; PULSE 92
[2023-09-30 14:08] LABS: Alanine Aminotransferase 11 U/L (6-35); Albumin Level 3.2 g/dL (3.5-5.1); Alkaline Phosphatase 177 U/L (38-126); Anion Gap 6 mmol/L (4-12); Aspartate Amino Transferase 17 U/L (14-36); Bilirubin,Total 0.4 mg/dL (0.2-1.3); Blood Urea Nitrogen 5 mg/dL (7-17); Calcium 8.9 mg/dL (8.4-10.2); Carbon Dioxide 20 mmol/L (22-30); Chloride 112 mmol/L (98-107); Estimated Glomerular Filt Rate > 60; Glucose 83 mg/dL (65-110); Potassium 3.7 mmol/L (3.4-5.0); Sodium 138 mmol/L (137-145)
[2023-09-30 14:15] VITALS: BP 103/65; PULSE 80
[2023-09-30 14:30] VITALS: BP 102/69; PULSE 78
[2023-09-30 14:57] VITALS: BP 107/73; PULSE 100
== END 2023-09-30 15:33 | disposition home or self-care (01) ==
LOC: ANHOBOP 13:25 → ANHOBPP 13:25
PROVIDERS: PCP Advanced Practice Midwife; Visit Provider Advanced Practice Midwife
DX: O13.9 Gestational [pregnancy-induced] hypertension without significant proteinuria, unspecified trimester (principal); Z3A.00 Weeks of gestation of pregnancy not specified
CPT/HCPCS: 36415; 59025; 80053; 84550; 85025; 96374; 96375; 99199; J1200; J2765

== ENCOUNTER 2023-10-07 00:22 | Inpatient (IN) | payer OTHER, SELFPAY ==
[2023-10-07] VITALS (170 sets, daily range): BP systolic 86–139; BP diastolic 46–112; PULSE 55–144; RESP 16–18; TEMP 36.4–37.6; O2SAT 88–100; BMI 29.5
--- NOTE | 2023-10-07 00:39 | LDADM ---
This patient, Cullen Frias, was admitted to Labor/Delivery/Recovery 104 on 10/07/23 at 00:22. Plans for labor, pain management and were discussed with patient. Patient/family oriented to hospital policies and general routines including ID bracelet, bed and alarms, visiting hours, pain management, procedures, bathroom and other care routines, personal items, smoking policy, room service/diet and guest tray routines, infant security routines, and visiting hours. Patient/Family are encouraged to report perceived risks to care and to ask questions if they do not understand what they are told or what they should do. See OBIX for further documentation.
[2023-10-07 01:00] LABS: Basophils Absolute Auto 0.1 K/mm3 (0.0-0.1); Basophils Percent Auto 0.4 % (0.2-1.2); Eosinophils Absolute Auto 0.1 K/mm3 (0-0.3); Eosinophils Percent Auto 0.3 % (0-4.4); Hematocrit 37.6 % (37.0-47.0); Hemoglobin 11.9 g/dL (12.0-15.0); Immature Granulocyte Percent A 0.7 % (0-0.5); Lymphocytes Absolute Auto 2.23 K/mm3 (0.9-3.2); Lymphocytes Percent Auto 14.8 % (18.3-44.2); Mean Corpuscular HGB Conc 31.6 g/dl (32-36); Mean Corpuscular Volume 88.5 fl (80-100); Mean Platelet Volume 12.6 fl (7.4-10.4); Monocytes Absolute Auto 1.1 K/mm3 (0.1-0.6); Monocytes Percent Auto 7.1 % (2.6-8.5); Neutrophils Absolute Auto 11.5 K/mm3 (1.3-6.7); Neutrophils Percent Auto 76.7 % (45.5-73.1); Platelet Count Result 253 k/mm3 (150-375); Red Blood Count 4.25 M/mm3 (4.2-5.4); Red Cell Distribution Width 13.9 % (11.5-14.5)
[2023-10-07] MEDS: LACTATED RINGERS 1,000 ML 125 ML IV CONT ×3 (01:25→08:55)
[2023-10-07] MEDS: OXYTOCIN 30 UNITS/NS 500 ML 30 UNITS/500 ML BAG IV CONT (01:45)
--- NOTE | 2023-10-07 04:53 | WPDANESEPP ---
Anes - Eval Pre Procedure Procedure: Labor Epidural Date/Time: 10/07/23 04:53 Surgeon: Sita Preop Diagnosis: Labor Pain Pre Op Diagnosis: IOL Patient Data Age: 28 Gender: F Height: 1.68 m Weight: 83 kg Last Vital Signs Temp 36.8 C 10/07/23 03:00 Pulse 93 10/07/23 04:50 BP 126/89 10/07/23 04:50 O2 Del Method Room Air 10/07/23 00:39 Allergies Allergy/AdvReac Type Severity Reaction Status Date / Time No Known Allergies Allergy Verified 10/07/23 03:11 Home Medications Medication Instructions Recorded Confirmed Type namplmzbed-olswonpxnuurp-msfegysm 1 cap PO Q6H PRN Migraine Headache 07/10/23 10/07/23 History 50 mg-300 mg-40 mg capsule cephalexin 500 mg capsule 500 mg PO Q12H 5 days #10 caps 09/08/23 Rx Laboratory Tests 10/07/23 00:54 WBC 15.0 H K/mm3 (4.5-10.0) RBC 4.25 M/mm3 (4.2-5.4) Hgb 11.9 L g/dL (12.0-15.0) Hct 37.6 % (37.0-47.0) MCV 88.5 fl (80-100) MCH 28.0 pg (26-34) MCHC 31.6 L g/dl (32-36) RDW 13.9 % (11.5-14.5) Plt Count 253 k/mm3 (150-375) MPV 12.6 H fl (7.4-10.4) Immature Gran % (Auto) 0.7 H % (0-0.5) Neut % (Auto) 76.7 H % (45.5-73.1) Lymph % (Auto) 14.8 L % (18.3-44.2) Atkinson % (Auto) 7.1 % (2.6-8.5) Eos % (Auto) 0.3 % (0-4.4) Baso % (Auto) 0.4 % (0.2-1.2) Lymph # (Auto) 2.23 K/mm3 (0.9-3.2) Atkinson # (Auto) 1.1 H K/mm3 (0.1-0.6) Eos # (Auto) 0.1 K/mm3 (0-0.3) Baso # (Auto) 0.1 K/mm3 (0.0-0.1) Abs Immat Gran (auto) 0.10 H K/mm3 (0.00-0.031) Absolute Neuts (auto) 11.5 H K/mm3 (1.3-6.7) Absolute Nucleated RBC 0.000 K/mm3 (0.0-0.012) Nucleated RBC % 0.0 % (0.0-0.2) RPR Pending Blood Type O Negative Antibody Screen Positive Antibody Identification Passive Due to RH Imm Glob Antigen Identification TNP SHILO, IgG Interpret Neg SHILO, Poly Interpret Apple Packing Header SHILO, Complement Interp Negative : gestational age (DANNY 10/27/23) Patient hx anesthesia problems: none Family hx anesthesia problems: none Results Review: All pre-operative results and documents have been reviewed as part of the pre-operative evaluation. [facility] Past Medical History Medical History Anxiety Bronchitis Fracture rt shoulder, lt elbow Migraines Rib fracture Surgical History Surgical History H/O hernia repair with stent History of kidney surgery kidney reflux surgery Family History Family History Sibling Hypertension Heart disease Asthma Diabetes mellitus Father Hypertension Social History Social History Smoking status: Never smoker Second hand tobacco smoke exposure: No Alcohol intake: never Substance use: never Do You Feel Safe in your Home?: Yes Lack of Transportation: No Lack of Food: Never True Current Housing: I Have Housing Concerned About Future Housing: No Difficulty Paying Gas/Electric Bills: No Difficulty Paying for Meds: No Currently Unemployed: No Education: High School Diploma/GED Difficulty w/ Childcare or Family Care: No Gender identity (if verbalized by the patient): Female Sexual Orientation (if Verbalized by the Patient): Straight or Heterosexual Spiritual care concerns: No Exam Day of Procedure 10/07/23 04:53 Patient weight: normal Heart: regular rate and rhythm Lungs: normal air movement Airway: Mallampati scale class II Neurological: alert and oriented
[2023-10-07] MEDS: ACETAMINOPHEN 500 MG TABLET 1000 MG PO (05:10)
--- NOTE | 2023-10-07 05:43 | PC.NURSE ---
0538- RN called JUAN and made her aware of migraine unresolved by increased fluid intake and tylenol. oxycodone order received as that is what patient takes at home for migraines in this .
[2023-10-07] MEDS: ONDANSETRON INJ 4 MG/2 ML VIAL IV PUSH (06:04)
[2023-10-07] MEDS: oxyCODONE/ACETAMINOPHEN (*CRX) 5-325 MG TABLET 1 TABLET PO ×3 (06:05→19:10)
--- NOTE | 2023-10-07 07:36 | PM.IMHP ---
H&P: HPI History of Present Illness Date/Time: 10/07/23 07:36 Chief Complaint: pt here for IOL, This has been complicated by chronic UTI, has been treated and re-tested, will continue treatment during labor and rpt culture . also complicated by preeclampsia without severe features. Elevated blood pressures on two separate occasions, PCR 0.31. has also been complicated by chronic migraine, percocet does relieve headache completely. history of hx hernia repair with mesh 2011, eye surgery 2022, kidney reflux surgery 2013. Review of Systems Review of Systems: All systems reviewed & are unremarkable except as noted in HPI and below PMFSH Past Medical History Medical History (Updated 10/07/23 @ 07:46 by Rossy Ernst CNM) Anxiety Bronchitis Fracture rt shoulder, lt elbow Migraines Rib fracture Surgical History Surgical History H/O hernia repair with stent History of kidney surgery kidney reflux surgery Family History Family History Sibling Hypertension Heart disease Asthma Diabetes mellitus Father Hypertension Social History Social History Smoking status: Never smoker Second hand tobacco smoke exposure: No Alcohol intake: never Substance use: never Do You Feel Safe in your Home?: Yes Lack of Transportation: No Lack of Food: Never True Current Housing: I Have Housing Concerned About Future Housing: No Difficulty Paying Gas/Electric Bills: No Difficulty Paying for Meds: No Currently Unemployed: No Education: High School Diploma/GED Difficulty w/ Childcare or Family Care: No Gender identity (if verbalized by the patient): Female Sexual Orientation (if Verbalized by the Patient): Straight or Heterosexual Spiritual care concerns: No Meds Home Medications and Allergies Home Medications Medication Instructions Recorded Confirmed Type kextvnwebc-kfburprbifssf-riuxrroo 1 cap PO Q6H PRN Migraine Headache 07/10/23 10/07/23 History 50 mg-300 mg-40 mg capsule cephalexin 500 mg capsule 500 mg PO Q12H 5 days #10 caps 09/08/23 Rx Allergies Allergy/AdvReac Type Severity Reaction Status Date / Time No Known Allergies Allergy Verified 10/07/23 03:11 Vital Signs Vital Signs - 24 hr 10/07/23 00:39 10/07/23 01:30 10/07/23 01:46 Temperature Pulse Rate 87 92 Blood Pressure 116/76 109/61 Pulse Oximetry Oxygen Delivery Room Air 10/07/23 02:00 10/07/23 02:15 10/07/23 02:30 Temperature Pulse Rate 86 84 83 Blood Pressure 113/70 115/65 112/72 Pulse Oximetry Oxygen Delivery 10/07/23 02:45 10/07/23 03:00 10/07/23 03:15 Temperature 36.8 C Pulse Rate 83 87 81 Blood Pressure 115/66 111/74 117/76 Pulse Oximetry Oxygen Delivery 10/07/23 03:30 10/07/23 03:45 10/07/23 04:00 Temperature Pulse Rate 79 80 80 Blood Pressure 114/73 113/67 115/73 Pulse Oximetry Oxygen Delivery 10/07/23 04:15 10/07/23 04:45 10/07/23 04:49 Temperature Pulse Rate 78 91 92 Blood Pressure 119/71 115/85 123/109 H Pulse Oximetry Oxygen Delivery 10/07/23 04:50 10/07/23 04:53 10/07/23 04:55 Temperature Pulse Rate 93 88 92 Blood Pressure 126/89 117/78 112/77 Pulse Oximetry Oxygen Delivery 10/07/23 04:57 10/07/23 04:59 10/07/23 05:00 Temperature Pulse Rate 96 89 Blood Pressure 127/89 136/112 H Pulse Oximetry 99 Oxygen Delivery 10/07/23 05:01 10/07/23 05:02 10/07/23 05:03 Temperature Pulse Rate 95 94 Blood Pressure 139/99 H 123/81 Pulse Oximetry 100 Oxygen Delivery 10/07/23 05:05 10/07/23 05:06 10/07/23 05:08 Temperature Pulse Rate 94 94 Blood Pressure 113/84 117/58 L Pulse Oximetry 100 Oxygen Delivery 10/07/23 05:10 10/07/23 05:11 10/07/23 05:13 Te
[2023-10-07] MEDS: NITROFURANTOIN MONOHYD MACROCR 100 MG CAP PO (07:46)
[2023-10-07 08:59] LABS: Alanine Aminotransferase 9 U/L (6-35); Albumin Level 2.8 g/dL (3.5-5.1); Alkaline Phosphatase 159 U/L (38-126); Anion Gap 2 mmol/L (4-12); Aspartate Amino Transferase 15 U/L (14-36); Bilirubin,Total 0.3 mg/dL (0.2-1.3); Blood Urea Nitrogen 5 mg/dL (7-17); Calcium 8.3 mg/dL (8.4-10.2); Carbon Dioxide 24 mmol/L (22-30); Chloride 107 mmol/L (98-107); Estimated CRCL calculation 149 ml/min; Estimated Glomerular Filt Rate > 60; Glucose 85 mg/dL (65-110); Potassium 3.9 mmol/L (3.4-5.0); Sodium 133 mmol/L (137-145); Uric Acid 4.2 mg/dL (2.5-7.5)
[2023-10-07] MEDS: CEPHALEXIN 500 MG CAPSULE PO ×2 (09:43→22:52)
[2023-10-07 11:19] LABS: Rapid Plasma Reagin Non-Reactive (NonReactive)
--- NOTE | 2023-10-07 11:55 | PM.OBPRVD ---
OB - Vaginal Delivery Note Procedure Delivery date: 10/07/23 Events: Preeclampsia w/o severe features Induction method: AROM and Per Pitocin Protocol Delivery monitor: External FHT and Internal Uterine Route of delivery: Episiotomy description: None Laceration Description: None Specimen: Yes Quantitative Blood Loss (ml): 100 Anesthesia type: Epidural Disposition: Floor Complications: No immediate complications [place] Baby Date of : 10/07/23 Time of : 11:45 Weeks of gestation at delivery: 37 gender: Female presentation: vertex position: Left Occiput Anterior Placenta delivery description: Spontaneous Cord Vessel Description: 3 Vessels score one minute: 8 score five minutes: 9
[2023-10-07] MEDS: WITCH HAZEL 40 PADS 1 PAD TOPICAL (12:21)
[2023-10-07] MEDS: BENZOCAINE 20% AER SPR (*SP) 56 GM CAN 1 SPRAY TOPICAL (12:21)
[2023-10-07] MEDS: OXYTOCIN 30 UNITS/NS 500 ML 30 UNITS/500 ML BAG 125 UNITS IV CONT (12:21)
[2023-10-07] MEDS: miSOPROStol 200 MCG TABLET 1000 MCG RECTAL (12:40)
--- NOTE | 2023-10-07 14:34 | PC.NURSE ---
Addendum entered by Zena Thompson RN 10/07/23 14:38: Preadmit charting was done on admission. Original Note: 3284 - Nursery RN called to report that mother wanted to initiate pumping at 2 hours post delivery, yet patient is also in the process of getting up to the restroom to be transferred upstairs to the PP floor. Nursery RN doesn't have a pump available and the plan is to pump after transfer to the PP floor. Mother has attempted to latch infant and hand expressed colostrum within the first couple of hours post delivery. Mothers intent charted at preadmit was a plan to breastfeed, formula feed with bottle and pump.
[2023-10-07] MEDS: IBUPROFEN 600 MG TABLET PO ×2 (15:29→22:52)
--- NOTE | 2023-10-07 18:42 | OBPPTRN ---
1440-Patient transferred to post room #287 via wheelchair. Support person present. Oriented to unit, room, information board, rooming in, admission packet and security measures. Patient verbalizes understanding.
--- NOTE | 2023-10-07 19:38 | PC.NURSE ---
1600- checked on patient to see if she was having any pain with pumping. She reported that she did have a little soreness but no pain. RN explained to mom to let her nurse know if she did have any pain during the next pumping session and that some soreness was to be expected but it should not be painful. RN also explained that she could call her RN to double check that the correct size pump phalange was being used during her next pumping session. Mother verbalized understanding.
[2023-10-08 01:00] VITALS: BP 121/72; PULSE 89; RESP 16; TEMP 36.9
[2023-10-08] MEDS: NITROFURANTOIN MONOHYD MACROCR 100 MG CAP PO ×3 (01:06→21:21)
[2023-10-08 04:30] VITALS: BP 120/82; PULSE 79; RESP 16; TEMP 36.7
[2023-10-08 05:23] LABS: Hematocrit 36.2 % (37.0-47.0); Hemoglobin 11.1 g/dL (12.0-15.0)
[2023-10-08] MEDS: IBUPROFEN 600 MG TABLET PO ×3 (05:43→18:18)
[2023-10-08] MEDS: ACETAMINOPHEN 325 MG TABLET 650 MG PO ×2 (05:44→11:58)
--- NOTE | 2023-10-08 08:08 | PM.OBPNVD ---
OB - PN: Subj Subjective Date/time seen: 10/08/23 08:08 Patient comments: no complaints, pain well controlled, incisional pain, tolerating diet and flatus present OB - PN: Obj Data Labs 10/08/23 05:04 10/07/23 08:29 Labs: Laboratory Results - last 24 hr 10/07/23 10/07/23 10/08/23 00:54 08:29 05:04 Hgb 11.1 L Hct 36.2 L Sodium 133 L Potassium 3.9 Chloride 107 Carbon Dioxide 24 Anion Gap 2 L BUN 5 L Creatinine 0.50 L Estim Creat Clear Calc 149 Estimated GFR > 60 Glucose 85 Uric Acid 4.2 Calcium 8.3 L Total Bilirubin 0.3 AST 15 ALT 9 Alkaline Phosphatase 159 H Total Protein 6.0 L Albumin 2.8 L RPR Non-reactive OB - PN A/P Plan day: 1 Plan: routine care Comments: No problems, routine care Time Spent With Patient Time: Total time spent is greater than 50% in coordination of care (as documented) at patient's floor/unit and/or counseling patient: Exam Const: General: comfortable, no acute distress and alert Resp: Effort & Inspection: normal respiratory effort Auscultation: no crackles, no rales and no rhonchi Cardio: Rate: regular rate Heart sounds: no click, no murmurs and no rubs GI: Inspection: non-distended GI Palp: No Tenderness to palpation present (GI) Auscultation: normal bowel sounds Other: Incision - CDI Extrem: General: normal to inspection, no pedal edema and no calf tenderness
[2023-10-08 08:15] VITALS: BP 114/93; PULSE 75; RESP 18; TEMP 37.2; O2SAT 100
[2023-10-08] MEDS: DOCUSATE SODIUM 100 MG CAPSULE PO (11:57)
[2023-10-08] MEDS: CEPHALEXIN 500 MG CAPSULE PO ×2 (11:57→21:21)
[2023-10-08] MEDS: MULTIVIT/MIN/PREN/FOL AC/IRON TABLET 1 TAB PO (11:58)
[2023-10-08 12:00] VITALS: BP 116/84; PULSE 81; RESP 18; TEMP 36.8; O2SAT 100
[2023-10-08 16:44] VITALS: BP 119/78; PULSE 73; RESP 18; O2SAT 98
[2023-10-08] MEDS: oxyCODONE/ACETAMINOPHEN (*CRX) 5-325 MG TABLET 1 TABLET PO (18:19)
[2023-10-09] MEDS: oxyCODONE/ACETAMINOPHEN (*CRX) 5-325 MG TABLET 1 TABLET PO (00:10)
[2023-10-09] MEDS: IBUPROFEN 600 MG TABLET PO ×2 (00:10→08:53)
[2023-10-09 00:32] VITALS: BP 113/77; PULSE 84; RESP 16; TEMP 37
[2023-10-09 04:00] VITALS: BP 116/71; PULSE 88; RESP 16; TEMP 36.9
[2023-10-09 07:00] VITALS: BP 100/70; PULSE 62; RESP 18; TEMP 36.9; O2SAT 100
[2023-10-09] MEDS: CEPHALEXIN 500 MG CAPSULE PO (08:50)
[2023-10-09] MEDS: NITROFURANTOIN MONOHYD MACROCR 100 MG CAP PO (08:50)
[2023-10-09] MEDS: MULTIVIT/MIN/PREN/FOL AC/IRON TABLET 1 TAB PO (08:50)
--- NOTE | 2023-10-09 10:09 | PM.OBPNVD ---
OB - PN: Subj Subjective Date/time seen: 10/09/23 10:09 Patient comments: no complaints, pain well controlled and tolerating diet OB - PN: Obj Data Labs 10/08/23 05:04 10/07/23 08:29 OB - PN A/P Plan day: 2 Plan: routine care and discharge home Time Spent With Patient Time: Total time spent is greater than 50% in coordination of care (as documented) at patient's floor/unit and/or counseling patient: Exam Const: General: comfortable and no acute distress Resp: Effort & Inspection: normal respiratory effort Auscultation: no rales, no rhonchi and no wheezes Cardio: Rate: regular rate Heart sounds: no click, no murmurs and no rubs GI: GI Palp: Yes Soft to palpation and No Tenderness to palpation present (GI) Auscultation: normal bowel sounds Extrem: General: normal to inspection, no pedal edema and no calf tenderness
--- NOTE | 2023-10-09 10:10 | PM.OBDSVD ---
DS: Admitting Diagnosis Discharge Date October 09, 2023 Admitting Diagnosis term OB - DS: Summary OB Procedures : None OB Procedures Intrapartum: Spontaneous Vag Delivery OB Procedures: : None Peripartum Data Laceration Description: None Episiotomy description: None Time Spent with Patient Time attestation: Total time spent providing and/or coordinating discharge services: DS: Data Data Completed and Pending Pending studies at discharge: Pending at discharge 10/07/23 11:49 Surgical [PTH] Routine Discharge Plan Discharge Discharging Clinician: Renny Buckner Patient Disposition: Home, Self-Care Activity: pelvic rest Diet: regular Patient Instructions: Antibiotic Form Stand Alone Forms: General Discharge Information Follow-up/Referrals: Renny Buckner MD [Physician] - Discharge Medications: Continued oxycodone-acetaminophen 5-325 mg tablet 1 tablet PO Q6H PRN (Reason: Headache) acetaminophen [Tylenol Extra Strength] 500 mg Capsule 1,000 mg PO Q6H PRN (Reason: Headache) nitrofurantoin monohyd/m-cryst [Macrobid] 100 mg Capsule 100 mg PO Q12H Rx Instructions: must administer with a meal/food cephalexin 500 mg Capsule 500 mg PO Q12H 5 Days Qty: 10 0RF Date of admission: 10/07/23 00:22 Primary Care Provider: Rossy Ernst Admitting Provider: Renny Buckner Attending physician on admission: Renny Buckner Condition: Stable
[2023-10-11 09:27] VITALS: BP 128/90; PULSE 69; RESP 16; TEMP 36.8; O2SAT 100
--- NOTE | 2023-11-06 19:52 | P.PNOB_ITS ---
OB - Triage/Final Diagnosis Visit Information Comments/Additional reasons for admission: I have assessed the risk for this patient, Cullen Frias, and determined that she would benefit from observation care. Evaluation Laboratory results: Laboratory Tests 10/07/23 10/07/23 10/08/23 00:54 08:29 05:04 WBC 15.0 H RBC 4.25 Hgb 11.9 L 11.1 L Hct 37.6 36.2 L MCV 88.5 MCH 28.0 MCHC 31.6 L RDW 13.9 Plt Count 253 MPV 12.6 H Immature Gran % (Auto) 0.7 H Neut % (Auto) 76.7 H Lymph % (Auto) 14.8 L [place] % (Auto) 7.1 Eos % (Auto) 0.3 Baso % (Auto) 0.4 Lymph # (Auto) 2.23 [place] # (Auto) 1.1 H Eos # (Auto) 0.1 Baso # (Auto) 0.1 Abs Immat Gran (auto) 0.10 H Absolute Neuts (auto) 11.5 H Absolute Nucleated RBC 0.000 Nucleated RBC % 0.0 Sodium 133 L Potassium 3.9 Chloride 107 Carbon Dioxide 24 Anion Gap 2 L BUN 5 L Creatinine 0.50 L Estim Creat Clear Calc 149 Estimated GFR > 60 Glucose 85 Uric Acid 4.2 Calcium 8.3 L Total Bilirubin 0.3 AST 15 ALT 9 Alkaline Phosphatase 159 H Total Protein 6.0 L Albumin 2.8 L RPR Non-reactive Blood Type O Negative Antibody Screen Positive Antibody Identification Passive Due to RH Imm Glob Antigen Identification TNP SHILO, IgG Interpret Neg SHILO, Poly Interpret Digital Marketing Manager SHILO, Complement Interp Negative Final Diagnosis (1) Shortness of breath: Code(s): R06.02 - Shortness of breath Status: Acute
== END 2023-10-09 12:10 | disposition home or self-care (01) | DRG 560 ==
LOC: ANHLDR 00:26 → ANHOB2 14:51
PROVIDERS: Admitting Provider Obstetrics & Gynecology; PCP Advanced Practice Midwife; Visit Provider Obstetrics & Gynecology
DX: O14.04 Mild to moderate pre-eclampsia, complicating childbirth (principal); Z37.0 Single live birth; Z3A.37 37 weeks gestation of pregnancy; O43.113 Circumvallate placenta, third trimester; O23.43 Unspecified infection of urinary tract in pregnancy, third trimester; N39.0 Urinary tract infection, site not specified; O99.354 Diseases of the nervous system complicating childbirth; G43.909 Migraine, unspecified, not intractable, without status migrainosus
CPT/HCPCS: 36415; 80053; 84550; 85014; 85018; 85025; 86592; 86850; 86880; 86900; 86901; 86902; 88307; A9270; J2405; J2590; J2795; J7120

== ENCOUNTER 2023-10-11 21:19 | Observation (INO) | payer OTHER, SELFPAY ==
--- NOTE | ~2023-10-11 | CT_ITS ---
EXAMINATION: CTA chest PE protocol DATE: 10/11/2023 22:40 INDICATION: Chest pressure and shortness of breath. TECHNIQUE: Computed tomography angiography (CTA) of the chest was performed with 100 mL Omnipaque-350 intravenous contrast timed to evaluate the pulmonary arteries. Coronal maximum intensity projection 3D-reconstructions were created by the technologist. The dose-length product (DLP) was 337.03 mGy-cm. Automated exposure control and iterative reconstruction technique were employed. COMPARISON: X-ray chest 08/12/2022. FINDINGS: Lung parenchyma and airways: Left medial basilar scar/atelectasis. Patent airways. Pleura: Unremarkable. Thoracic inlet, axillae and chest wall: Pectus deformity. Thoracic aorta: No significant dilation. No dissection. Mediastinum: Normal. Heart and pericardium: Normal. Coronary artery calcifications: Absent. Upper abdomen: No significant finding. Bones: No acute osseous finding. Pulmonary arteries: Study quality: Adequate. No pulmonary emboli detected. IMPRESSION: No CT evidence of acute pulmonary embolus. No acute process detected in the chest. Reviewed, dictated and finalized at location K.
--- NOTE | ~2023-10-11 | XR_ITS ---
EXAMINATION: XR chest 1V Exam Date/Time: 10/11/2023 22:37 CDT HISTORY: Chest pressure, 4 days Comparison: CTPA, same date. RESULT: Lines, tubes, and devices: None. Lungs and pleura: Clear. Cardiomediastinal silhouette: Stable. Other: No acute osseous or upper abdominal finding. IMPRESSION: No acute cardiopulmonary process. Reviewed, dictated and finalized at location K.
[2023-10-11 21:18] VITALS: BP 148/89; PULSE 51; RESP 18; TEMP 36.9; O2SAT 100
--- NOTE | 2023-10-11 21:29 | ECG_ITS ---
SEE SCANNED COPY FOR CONFIRMED REPORT MTDD
[2023-10-11] MEDS: ASPIRIN 81 MG CHEWABLE TABLET 324 MG PO (21:35)
[2023-10-11 21:42] VITALS: O2SAT 100
[2023-10-11 21:44] VITALS: BP 126/96; PULSE 62; RESP 18; O2SAT 98
[2023-10-11 21:44] LABS: Basophils Absolute Auto 0.1 K/mm3 (0.0-0.1); Basophils Percent Auto 0.4 % (0.2-1.2); Eosinophils Absolute Auto 0.2 K/mm3 (0-0.3); Eosinophils Percent Auto 1.3 % (0-4.4); Hematocrit 38.6 % (37.0-47.0); Immature Granulocyte Absolute 0.09 K/mm3 (0.00-0.031); Immature Granulocyte Percent A 0.6 % (0-0.5); Lymphocytes Absolute Auto 2.36 K/mm3 (0.9-3.2); Mean Corpuscular HGB Conc 31.1 g/dl (32-36); Mean Corpuscular Hemoglobin 28.5 pg (26-34); Mean Corpuscular Volume 91.7 fl (80-100); Monocytes Absolute Auto 0.9 K/mm3 (0.1-0.6); Monocytes Percent Auto 6.7 % (2.6-8.5); Neutrophils Absolute Auto 10.3 K/mm3 (1.3-6.7); Platelet Count Result 292 k/mm3 (150-375); Red Blood Count 4.21 M/mm3 (4.2-5.4); Red Cell Distribution Width 14.1 % (11.5-14.5); White Blood Count 13.9 K/mm3 (4.5-10.0)
[2023-10-11 21:56] LABS: Alanine Aminotransferase 20 U/L (6-35); Albumin Level 3.1 g/dL (3.5-5.1); Alkaline Phosphatase 157 U/L (38-126); Anion Gap 3 mmol/L (4-12); Aspartate Amino Transferase 24 U/L (14-36); Bilirubin,Total 0.4 mg/dL (0.2-1.3); Blood Urea Nitrogen 7 mg/dL (7-17); Carbon Dioxide 25 mmol/L (22-30); Chloride 111 mmol/L (98-107); Estimated CRCL calculation 114 ml/min; Estimated Glomerular Filt Rate > 60; Glucose 96 mg/dL (65-110); Lipase 58 U/L (23-300); Potassium 3.6 mmol/L (3.4-5.0); Sodium 139 mmol/L (137-145)
[2023-10-11 21:58] LABS: Partial Thromboplastin Time 27.1 Seconds (22.3-36.8); Prothrombin Time 13.4 Seconds (11.1-14.7)
[2023-10-11] MEDS: methocarbamoL 750 MG TABLET PO (21:58)
[2023-10-11] MEDS: ACETAMINOPHEN 500 MG TABLET 1000 MG PO (21:58)
[2023-10-11 22:08] LABS: Troponin I < 0.012 ng/mL (0.000-0.034)
[2023-10-11 22:13] LABS: NT Pro B Type Natriuretic Pept 365 pg/mL (19.9-100)
[2023-10-11 22:16] LABS: Lactate Dehydrogenase 246 U/L (120-246); Magnesium 1.8 mg/dL (1.6-2.3)
[2023-10-11 22:32] LABS: Appearance Urine Cloudy (Clear); Bacteria Urine 4+ /hpf; Bilirubin Urine Negative (Negative); Blood Urine 3+ (Negative); Color Urine Yellow (Yellow); Glucose Urine UA Negative (Negative); Ketones Urine Negative (Negative); Leukocyte Esterase Ur 1+ LEU/UL (Negative); Nitrate Urine Negative (Negative); Non Pathogenic Casts 0-2; Protein Urine 1+ mg/dL (Negative); RBC Urine 21-50 /hpf (0-2); Squamous Epithelial Cell Urine None Seen /hpf (Few); WBC Urine 21-50 /hpf (0-3)
[2023-10-11 22:34] LABS: Total Protein Urine Random 73 mg/dL
[2023-10-11 22:35] LABS: Add Urine Microscopic? YES
--- NOTE | 2023-10-11 22:56 | ED.GENADULT ---
HPI - General Adult General Chief complaint: Chest Pain Stated complaint: NECK PAIN & CP WHILE LYING FLAT. Time Seen by Provider: 10/11/23 21:44 History of Present Illness HPI narrative: This is a 28-year-old female who is 4 days from a spontaneous vaginal delivery complicated by preeclampsia with out severe features. Patient is coming in to ED today for 2 complaints. The 1st complaint is chest heaviness which is been going on for 4 days. It is across her entire chest, it is worse when she lays flat. It is associated with pedal edema. Patient also notes she has decreased exercise tolerance. He said patient's 2nd complaint is neck pain. Patient has a sharp pain in the left side of her neck that is radiating down arm. She has had pain like this in the past and has history of multiple pinched nerves. Pain is worse with movement. Related Data Home Medications Medication Instructions Recorded Confirmed acetaminophen 500 mg capsule 1,000 mg PO Q6H PRN Headache 10/07/23 10/07/23 nitrofurantoin 100 mg PO Q12H 10/07/23 10/07/23 monohydrate/macrocrystals 100 mg capsule (Macrobid) oxycodone-acetaminophen 5 mg-325 1 tablet PO Q6H PRN Headache 10/07/23 10/07/23 mg tablet Allergies Allergy/AdvReac Type Severity Reaction Status Date / Time No Known Allergies Allergy Verified 10/07/23 03:11 [facility] Past Medical History Medical History (Updated 10/11/23 @ 23:17 by Jordin Eden MD) Anxiety Bronchitis Fracture rt shoulder, lt elbow Migraines Rib fracture Surgical History Surgical History H/O hernia repair with stent History of kidney surgery kidney reflux surgery Family History Family History Sibling Hypertension Heart disease Asthma Diabetes mellitus Father Hypertension Social History Social History Smoking status: Never smoker Second hand tobacco smoke exposure: No Alcohol intake: never Substance use: never Do You Feel Safe in your Home?: Yes Lack of Transportation: No Lack of Food: Never True Current Housing: I Have Housing Concerned About Future Housing: No Difficulty Paying Gas/Electric Bills: No Difficulty Paying for Meds: No Currently Unemployed: No Education: High School Diploma/GED Difficulty w/ Childcare or Family Care: No Gender identity (if verbalized by the patient): Female Sexual Orientation (if Verbalized by the Patient): Straight or Heterosexual Spiritual care concerns: No Exam Narrative: APPEARANCE: Patient appears uncomfortable Head: atraumatic. EYES: EOMI, NOSE: Atraumatic NECK: no midline cervical tenderness. No tenderness to palpation the left-sided neck, no overlying skin changes. RESPIRATORY: No increased rate of breathing, no rales or crackles CARDIOVASCULAR: bradycardic, bilateral pedal edema ABDOMINAL: Non-distended MUSCULOSKELETAl: No obvious deformities NEURO: Alert. Moving 4/4 extremities SKIN:: Warm, dry. Normal color PSYCHIATRIC: Normal affect Course Vital Signs Vital signs: Vital Signs Temperature 98.5 F 10/11/23 21:18 Pulse Rate 51 L 10/11/23 21:18 Respiratory Rate 18 10/11/23 21:18 Blood Pressure 148/89 H 10/11/23 21:18 Pulse Oximetry 100 10/11/23 21:18 Oxygen Delivery Room Air 10/11/23 21:18 Temperature 98.5 F 10/11/23 21:18 Pulse Rate 62 10/11/23 21:44 Respiratory Rate 18 10/11/23 21:44 Blood Pressure 126/96 H 10/11/23 21:44 Pulse Oximetry 98 10/11/23 21:44 Oxygen Delivery Room Air 10/11/23 21:42 Medical Decision Making MDM Narrative Medical decision making narrative: -Course: 28-year-old female presenting with chest pressure, pedal edema and difficulty lying flat several days after delivery. Performed point of care cardiothoracic echo which on my interpretation tiffany
[2023-10-11 23:49] VITALS: BP 116/80; PULSE 71; RESP 15; O2SAT 99
[2023-10-12] VITALS (10 sets, daily range): BP systolic 105–135; BP diastolic 60–90; PULSE 46–80; RESP 16–20; TEMP 36–36.9; O2SAT 98–100
--- NOTE | 2023-10-12 00:18 | ADMGEN ---
This patient, Cullen Frias, was admitted to Medical Room 252-. Patient/family oriented to hospital policies and general routines including ID bracelet, bed and alarms, visiting hours, pain management, procedures, bathroom and other care routines, personal items, smoking policy, room service/diet, and visiting hours. Information on how to activate the Rapid Response Team has been discussed. Patient/Family are encouraged to report perceived risks to care and to ask questions if they do not understand what they are told or what they should do.
--- NOTE | 2023-10-12 02:47 | PM.IMHP ---
H&P: HPI History of Present Illness Date/Time: 10/12/23 02:47 Chief Complaint: shortness of breath Narrative: This is a 28-year-old female with past medical history significant for pre eclampsia, patient is 4 days, presents to the emergency room due to shortness of breath with mild exertion PND and orthopnea and pedal swelling chest pain present a retrosternal area pressure-like. Preliminary workup was significant for brain natriuretic peptide of 365, patient was rule out for acute pulmonary embolism with a negative CT angiogram of the chest. patient has been placed in observation for further evaluation management and treatment. EXAMINATION: CTA chest PE protocol DATE: 10/11/2023 22:40 INDICATION: Chest pressure and shortness of breath. TECHNIQUE: Computed tomography angiography (CTA) of the chest was performed with 100 mL Omnipaque-350 intravenous contrast timed to evaluate the pulmonary arteries. Coronal maximum intensity projection 3D-reconstructions were created by the technologist. The dose-length product (DLP) was 337.03 mGy-cm. Automated exposure control and iterative reconstruction technique were employed. COMPARISON: X-ray chest 08/12/2022. ? FINDINGS:? Lung parenchyma and airways: Left medial basilar scar/atelectasis. Patent airways. Pleura: Unremarkable. Thoracic inlet, axillae and chest wall: Pectus deformity. Thoracic aorta: No significant dilation. No dissection. Mediastinum: Normal. Heart and pericardium: Normal. Coronary artery calcifications: Absent. Upper abdomen: No significant finding. Bones: No acute osseous finding. Pulmonary arteries: Study quality: Adequate. No pulmonary emboli detected. IMPRESSION: No CT evidence of acute pulmonary embolus. No acute process detected in the chest. Review of Systems Review of Systems: shortness of breath, PND, orthopnea, pedal swelling, chest pain. Constitutional: Constitutional: Denies chills, Denies fatigue, Denies fever(s), Denies malaise, Denies night sweats and Denies weakness Eyes: Eyes: Denies change in vision ENT: Denies dysphagia and Denies odynophagia Cardiovascular: Cardiovascular: Reports chest pain, Reports pedal edema, Denies radiating jaw, neck or arm pain, Denies palpitations, Reports dyspnea on exertion, Reports orthopnea and Reports paroxysmal nocturnal dyspnea Respiratory: Respiratory: Denies chest congestion and Denies cough Gastrointestinal: Gastrointestinal: Denies abdominal pain, Denies nausea and Denies vomiting Genitourinary: Genitourinary: Denies dysuria Musculoskeletal: Musculoskeletal: Denies myalgias Integumentary/Breasts: Skin/Breast: Denies rash Neurologic: Denies focal weakness and Denies Sensory deficit (Neuro) Psychiatric: Psychiatric: Reports no additional psychiatric complaints and Reports as per HPI Endocrine: Endocrine: Denies cold intolerance, Denies heat intolerance, Denies polyphagia, Denies polydipsia, Denies polyuria and Denies palpitations Hematologic/Lymphatic: Hematologic/Lymphatic: Reports no additional hematologic/lymphatic complaints and Reports as per HPI Allergic/Immunologic: Allergic/Immunologic: Reports no additional allergic/immunologic complaints and Reports as per HPI [facility] Past Medical History Medical History (Updated 10/12/23 @ 02:54 by Marine Riggins MD) Anxiety Bronchitis Fracture rt shoulder, lt elbow Migraines Rib fracture Surgical History Surgical History H/O hernia repair with stent History of kidney surgery kidney reflux surgery Family History Family History Sibling Hypertension Heart disease Asthma Diabetes mellitus Father Hypertension Social History Social History Smoking status: Never smoker Second hand tobacco smoke exposure: No Alcohol intake:
[2023-10-12] MEDS: FUROSEMIDE INJ 40 MG/4 ML VIAL IV PUSH (03:42)
[2023-10-12] MEDS: ACETAMINOPHEN 500 MG TABLET 1000 MG PO ×2 (03:47→11:06)
--- NOTE | 2023-10-12 06:00 | ECHO_ITS ---
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 Summary 1. Left ventricular chamber dimension is normal. 2. Left ventricular systolic function is normal, estimated at 60-65%. 3. The left ventricular diastolic function is normal. 4. Right ventricular systolic function is normal. 5. No significant valvular disease. Left Ventricle Left ventricular chamber dimension is normal. Left ventricular systolic function is normal, estimated at 60-65%. There is no increased left ventricular wall thickness. The left ventricular diastolic function is normal. Right Ventricle Right ventricular chamber dimension is normal. Right ventricular systolic function is normal. Left Atria Left atrial chamber dimension is normal. Right Atria Right atrial chamber dimension is normal. Atrial Septum Intact interatrial septum visualized by color flow imaging. Aortic Valve The aortic valve is not well visualized. There is trace aortic valve regurgitation. Pulmonic Valve The pulmonic valve is not well visualized. There is trace pulmonic regurgitation. Mitral Valve There is trace mitral valve regurgitation. Tricuspid Valve There is trace tricuspid valve regurgitation. Pericardium/Pleural There is no pericardial effusion. Inferior Vena Cava Normal inferior vena cava with <50% collapse upon inspiration consistent with elevated right atrial pressure, 8 mmHg. Aorta The aortic root size at the sinus of Valsalva is normal. Tricuspid Valve Name Value Normal Estimated PAP/RSVP RA Pressure 8 mmHg <=5 Report Signatures
--- NOTE | 2023-10-12 10:39 | PM.CNCAR ---
Assessment and Plan Assessment and plan (1) Chest pain: Code(s): R07.9 - Chest pain, unspecified Status: Acute Assessment and Plan: Atypical chest pain. No concern for ACS given negative troponin, no acute STTW abnormalities. No further workup recommended in this regard. (2) Pedal edema: Code(s): R60.0 - Localized edema Status: Acute Assessment and Plan: Improved with IV furosemide, but she does still have edema. Will give one more dose of IV furosemide now. (3) Fluid overload: Code(s): E87.70 - Fluid overload, unspecified Status: Acute Assessment and Plan: Possible that her volume overload is related to CHF. However, her pulmonary exam and CXR are normal and her BNP is only slightly elevated. She did have preeclampsia at the end of her , so she is at higher risk for post CMY, but the overall clinical picture isn't very consistent with this. Echo has been performed and further recommendations will follow the review of echo results. (4) Acute neck pain: Code(s): M54.2 - Cervicalgia Status: Acute Assessment and Plan: Most likely musculoskeletal. Continue Tylenol and cyclobenzaprine (5) Bradycardia: Code(s): R00.1 - Bradycardia, unspecified Status: Acute Assessment and Plan: Asymptomatic sinus bradycardia. TSH is normal. Blood pressure stable. Continue to monitor on telemetry for now. History of Present Illness History of Present Illness Consult date/time: 10/12/23 10:39 Requesting physician: Jordin Eden MD Consult reason: congestive heart failure Reason For Visit: Chest Pain Narrative: Cullen Frias is a 28 year old female with no significant medical history who recently delivered her third baby. She comes to the hospital with a complaint of a heaviness/pressure-like sensation in her chest. She states she first noticed this discomfort during labor when she laid down flat. The discomfort subsides when she sits up. She denies feeling short of breath when she is experiencing the pressure in her chest. She denies any paroxysmal nocturnal dyspnea. She does report significant pedal edema, stating that both ankles were the size of softballs prior to receiving furosemide. The edema occurred after she returned home from the hospital following delivery. She does say she was given the diagnosis of preeclampsia toward the end of her due to proteinuria but she denies having elevated blood pressures throughout her . She experienced chest wall pain during her echocardiogram earlier this morning but is not having pain now. She is resting comfortably in bed and her only current complaint is left sided neck pain. Review of Systems Review of Systems: All systems reviewed & are unremarkable except as noted in HPI and below [facility] Past Medical History Medical History (Updated 10/12/23 @ 13:05 by CARI Velez) Anxiety Bronchitis Fracture rt shoulder, lt elbow Migraines Rib fracture Surgical History Surgical History H/O hernia repair with stent History of kidney surgery kidney reflux surgery Family History Family History Sibling Hypertension Heart disease Asthma Diabetes mellitus Father Hypertension Social History Social History Smoking status: Never smoker Second hand tobacco smoke exposure: No Alcohol intake: never Substance use: never Substance use type: does not use Do You Feel Safe in your Home?: Yes Lack of Transportation: No Lack of Food: Never True Current Housing: I Have Housing Concerned About Future Housing: No Difficulty Paying Gas/Electric Bills: No Difficulty Paying for Meds: No Currently Unemployed: No Education: High School Diploma/GED Difficulty w/ Childc
[2023-10-12] MEDS: methocarbamoL 500 MG TABLET PO (11:06)
--- NOTE | 2023-10-12 13:43 | P.PNIM_ITS ---
Progress Note: A&P Assessment and Plan (1) Chest pain: Code(s): R07.9 - Chest pain, unspecified Status: Acute (2) Fluid overload: Code(s): E87.70 - Fluid overload, unspecified Status: Acute (3) Preeclampsia: Code(s): O14.90 - Unspecified pre-eclampsia, unspecified trimester Status: Acute (4) Urinary tract infection: Code(s): N39.0 - Urinary tract infection, site not specified Status: Acute (5) Cervical radiculopathy: Code(s): M54.12 - Radiculopathy, cervical region Status: Acute Plan Chest Pressure: * Cardiology consult * does not appear to be ACS related * Troponin negative * EKG SR/SB Bilateral lower Extremity Edema * possible cardiomyopathy/CHF/postop 4 days * Cardiology consulted * Echocardiogram pending * Receiving an IV Lasix UTI * Acute on chronic patient had UTI all during * Was on Macrobid and Keflex * Currently IV Rocephin pending cultures Cervical radiculopathy * Flexeril PRN * Lidocaine patch * Prednisone 40mg daily x 5 days * Toradol as needed Code status: Full code per patient DVT prophylaxis: Lovenox Stress ulcer prophylaxis: Protonix 40 daily PT/OT notes: Ambulatory Disposition: Patient admitted with bilateral lower extremity edema possibly secondary to cardiomyopathy/CHF echocardiogram pending will continue with IV Lasix. Patient with chronic UTI will continue to treat with IV Rocephin pending cultures. Patient also being treated for cervical radiculopathy. Been the echocardiogram results patient is ambulatory and when medically stable will return home no discharge needs at this time. Time Spent With Patient Time with patient: 15 - 25 minutes Subjective Date/time seen: 10/12/23 13:43 Interval history: Admission: Medical Record ?This is a 28-year-old female with past medical history significant for pre eclampsia,? patient? is 4 days, presents to the emergency room due to shortness of breath with mild exertion PND and orthopnea and pedal swelling chest pain present a retrosternal area pressure-like.? Preliminary workup was significant for brain natriuretic peptide of 365, patient was rule out for acute pulmonary embolism with a negative CT angiogram of the chest. patient has been placed in observation for further evaluation management and treatment. 10/11: Assumed Care Patient reports overall improvement to bilateral edema after administration of IV lasix. Cardiology following pending echo to evaluate for cardiomyopathy. Patient still with complaints of LT sided neck pain will add diazepam and lidocaine patch. Asympotmatic bradycardia, ACS r/o. Review of Systems Review of Systems: shortness of breath, PND, orthopnea, pedal swelling, chest pain. All systems reviewed & are unremarkable except as noted in HPI and below Exam Narrative: Physical Exam: * GENERAL: Alert and oriented x 3. No acute distress. * EYES: EOMI. No scleral icterus. PERRLA. * HEENT: Moist mucous membranes. * LUNGS: Clear to auscultation bilaterally. No accessory muscle use. * CARDIOVASCULAR: Regular rate and rhythm. No murmur. No JVD. S1-S2 * ABDOMEN: Soft, mild tenderness and non-distended. No palpable masses. * EXTREMITIES: No edema. Non-tender * SKIN: No rashes or lesions. Skin warm, dry. * NEUROLOGIC: No focal neurological deficits. CN II-XII grossly intact * PSYCHI
--- NOTE | 2023-10-12 13:43 | PM.IMPN ---
Progress Note: A&P Assessment and Plan (1) Chest pain: Code(s): R07.9 - Chest pain, unspecified Status: Acute (2) Fluid overload: Code(s): E87.70 - Fluid overload, unspecified Status: Acute (3) Preeclampsia: Code(s): O14.90 - Unspecified pre-eclampsia, unspecified trimester Status: Acute (4) Urinary tract infection: Code(s): N39.0 - Urinary tract infection, site not specified Status: Acute (5) Cervical radiculopathy: Code(s): M54.12 - Radiculopathy, cervical region Status: Acute Plan Chest Pressure: Cardiology consult does not appear to be ACS related Troponin negative EKG SR/SB Bilateral lower Extremity Edema possible cardiomyopathy/CHF/postop 4 days Cardiology consulted Echocardiogram pending Receiving an IV Lasix UTI Acute on chronic patient had UTI all during Was on Macrobid and Keflex Currently IV Rocephin pending cultures Cervical radiculopathy Flexeril PRN Lidocaine patch Prednisone 40mg daily x 5 days Toradol as needed Code status: Full code per patient DVT prophylaxis: Lovenox Stress ulcer prophylaxis: Protonix 40 daily PT/OT notes: Ambulatory Disposition: Patient admitted with bilateral lower extremity edema possibly secondary to cardiomyopathy/CHF echocardiogram pending will continue with IV Lasix. Patient with chronic UTI will continue to treat with IV Rocephin pending cultures. Patient also being treated for cervical radiculopathy. Been the echocardiogram results patient is ambulatory and when medically stable will return home no discharge needs at this time. Time Spent With Patient Time with patient: 15 - 25 minutes Subjective Date/time seen: 10/12/23 13:43 Interval history: Admission: Medical Record ?This is a 28-year-old female with past medical history significant for pre eclampsia,? patient? is 4 days, presents to the emergency room due to shortness of breath with mild exertion PND and orthopnea and pedal swelling chest pain present a retrosternal area pressure-like.? Preliminary workup was significant for brain natriuretic peptide of 365, patient was rule out for acute pulmonary embolism with a negative CT angiogram of the chest. patient has been placed in observation for further evaluation management and treatment. 10/11: Assumed Care Patient reports overall improvement to bilateral edema after administration of IV lasix. Cardiology following pending echo to evaluate for cardiomyopathy. Patient still with complaints of LT sided neck pain will add diazepam and lidocaine patch. Asympotmatic bradycardia, ACS r/o. Review of Systems Review of Systems: shortness of breath, PND, orthopnea, pedal swelling, chest pain. All systems reviewed & are unremarkable except as noted in HPI and below Exam Narrative: Physical Exam: GENERAL: Alert and oriented x 3. No acute distress. EYES: EOMI. No scleral icterus. PERRLA. HEENT: Moist mucous membranes. LUNGS: Clear to auscultation bilaterally. No accessory muscle use. CARDIOVASCULAR: Regular rate and rhythm. No murmur. No JVD. S1-S2 ABDOMEN: Soft, mild tenderness and non-distended. No palpable masses. EXTREMITIES: No edema. Non-tender SKIN: No rashes or lesions. Skin warm, dry. NEUROLOGIC: No focal neurological deficits. CN II-XII grossly intact PSYCHIATRIC: Appropriate mood and affect. Good judgement and insight. No visual or auditory hallucinations. No suicidal or homicidal ideation. Objective Data Vital Signs Vital Signs: Vital Signs - 24 hr 10/11/23 21:18 10/11/23 21:42 10/11/23 21:44 Temperature 98.5 F Pulse Rate 51 L 62 Respiratory Rate 18 18 Blood Pressure 148/89 H 126/96 H Pulse Oximetry 100 100 98 Oxygen Delivery Room Air Room Air 10/11/23 21:44 10/11/23 23:49 10/12/23 00:28 Temperature 97.9 F Pulse Rate 62 71 51 L R
[2023-10-12] MEDS: FUROSEMIDE INJ 40 MG/4 ML VIAL 20 MG IV PUSH (13:51)
[2023-10-12] MEDS: LIDOCAINE 5% PATCH 1 PATCH TRANSDERM (13:51)
[2023-10-12] MEDS: CYCLOBENZAPRINE HCL 10 MG TABLET PO (15:13)
[2023-10-12] MEDS: predniSONE 20 MG TABLET 40 MG PO (15:13)
[2023-10-12] MEDS: KETOROLAC 30 MG/ML VIAL (*BKC) IV PUSH (20:07)
[2023-10-13] VITALS: PULSE 44
[2023-10-13 04:00] VITALS: PULSE 42
[2023-10-13] MEDS: KETOROLAC 30 MG/ML VIAL (*BKC) IV PUSH ×2 (04:34→11:56)
[2023-10-13 04:53] VITALS: BP 138/90; PULSE 59; RESP 16; TEMP 36.6; O2SAT 99
[2023-10-13 08:00] VITALS: PULSE 48
[2023-10-13] MEDS: predniSONE 20 MG TABLET 40 MG PO (08:29)
[2023-10-13] MEDS: LIDOCAINE 5% PATCH 1 PATCH TRANSDERM (08:29)
[2023-10-13] MEDS: GENTAMICIN SULFATE INJ 420 MG in DEXTROSE 5% 100 ML 100 MG IVPB (09:42)
--- NOTE | 2023-10-13 10:27 | PM.PNCARD ---
Progress Note: A&P Assessment and Plan (1) Chest pain: Code(s): R07.9 - Chest pain, unspecified Status: Acute Assessment and Plan: Atypical chest pain, reproducible. No concern for ACS given negative troponin, no acute STTW abnormalities. No further workup recommended in this regard. (2) Pedal edema: Code(s): R60.0 - Localized edema Status: Acute Assessment and Plan: Improved with IV furosemide. Will order PARRIS hose, does not need further diuresis at this point. (3) Fluid overload: Code(s): E87.70 - Fluid overload, unspecified Status: Acute Assessment and Plan: Initial concern for CMY, however echo showed normal LV systolic function, normal diastolic function. No valvular disease. (4) Acute neck pain: Code(s): M54.2 - Cervicalgia Status: Acute Assessment and Plan: Resolved with Toradol. (5) Bradycardia: Code(s): R00.1 - Bradycardia, unspecified Status: Acute Assessment and Plan: Asymptomatic sinus bradycardia. TSH is normal. Blood pressure stable. Continue to monitor on telemetry for now. Plan No further cardiac recommendations to make. Cardiology will sign off. OK for discharge from a cardiac perspective. Subjective Date/time seen: 10/13/23 10:27 Interval history: Cardiology follow up for chest pain She is feeling much better today. Denies any chest pain. She was able to lay down flat to sleep without any chest discomfort or shortness of breath. Swelling has improved and she states her ankles look nearly back to normal. Eager to get home to her baby. Review of Systems Review of Systems: All systems reviewed & are unremarkable except as noted in HPI and below Exam Const: General: comfortable, no acute distress, alert and awake Orientation/consciousness: patient oriented x3 HENMT: Head: normal to inspection Eyes: General: appearance normal, both eyes and all related structures Pupils: Equal, round and reactive pupils present Neck: Neck: normal visual inspection, supple and no JVD Carotids: normal carotid upstroke Chest: Other: Reproducible chest wall pain/tenderness to palpation. Resp: Effort & Inspection: normal respiratory effort Auscultation: clear to auscultation bilaterally, no crackles and no rales Cardio: Rate: regular rate and bradycardic Rhythm: regular rhythm Heart sounds: S1 normal heart sound present, S2 normal heart sound present and no murmurs GI: Auscultation: normal bowel sounds Skin: General skin exam: normal color Neuro: General: patient oriented x3 Cranial nerves: Yes Equal, round and reactive pupils present Extrem: General: abnormal to inspection and pedal edema (mild) bilaterally Psych: Appearance: grossly normal Mental Status: mental status grossly normal Objective Data Vital Signs Vital Signs: Vital Signs - 24 hr 10/12/23 12:00 10/12/23 14:15 10/12/23 20:00 Temperature 36.0 C L Pulse Rate 57 L 64 56 L Respiratory Rate 16 Blood Pressure 131/90 Pulse Oximetry 98 Oxygen Delivery 10/12/23 23:37 10/13/23 00:00 10/13/23 04:00 Temperature 36.9 C Pulse Rate 80 44 L 42 L Respiratory Rate 20 Blood Pressure 135/78 Pulse Oximetry 98 Oxygen Delivery 10/13/23 04:53 10/13/23 08:25 Temperature 36.6 C Pulse Rate 59 L Respiratory Rate 16 Blood Pressure 138/90 Pulse Oximetry 99 Oxygen Delivery Room Air Intake/Output Intake/Output: Intake & Output 10/10/23 10/11/23 10/12/23 10/13/23 23:59 23:59 23:59 23:59 Intake Total 510 620 Balance 510 620 Meds/Results Medications: Active Medications Generic Name Dose Route Start Last Admin Trade Name Freq PRN Reason Stop Dose Admin Acetaminophen 1,000 mg 10/12/23 02:44 10/12/23 11:06 Acetaminophen 500 Mg Tablet PO 1,000 mg Q6H PRN Administration Headache Cyclobenzaprine HCl 10 mg 10/12/23 14:03 10/12/23 15:13 Cyclo
[2023-10-13 12:00] VITALS: PULSE 48
--- NOTE | 2023-10-13 13:25 | PM.DS ---
DS: Admitting Diagnosis Discharge Date 10/13/2023 Admitting Diagnosis Chest pressure/BLE edema post /cervical radiculopathy DS: Discharge Diagnosis Discharge Diagnosis (1) Chest pain: Code(s): R07.9 - Chest pain, unspecified Status: Acute (2) Fluid overload: Code(s): E87.70 - Fluid overload, unspecified Status: Acute (3) Preeclampsia: Code(s): O14.90 - Unspecified pre-eclampsia, unspecified trimester Status: Acute (4) Urinary tract infection: Code(s): N39.0 - Urinary tract infection, site not specified Status: Acute (5) Cervical radiculopathy: Code(s): M54.12 - Radiculopathy, cervical region Status: Acute Plan Chest Pressure: Cardiology consult does not appear to be ACS related Troponin negative EKG SR/SB Bilateral lower Extremity Edema possible cardiomyopathy/CHF/postop 4 days Cardiology consulted Echocardiogram pending Receiving an IV Lasix UTI Acute on chronic patient had UTI all during Was on Macrobid and Keflex Currently IV Rocephin pending cultures Cervical radiculopathy Flexeril PRN Lidocaine patch Prednisone 40mg daily x 5 days Toradol as needed Disposition: Discharged home will follow-up with OBGYN as scheduled DS: Summary Hospital Course Reason for hospitalization: Chest pressure/BLE edema post /cervical radiculopathy Hospital Course: This is a 28-year-old female with past medical history significant for pre eclampsia,? patient? is 4 days, presents to the emergency room due to shortness of breath with mild exertion PND and orthopnea and pedal swelling chest pain present a retrosternal area pressure-like.? Preliminary workup was significant for brain natriuretic peptide of 365, patient was rule out for acute pulmonary embolism with a negative CT angiogram of the chest. patient has been placed in observation for further evaluation management and treatment. 10/11:? Assumed Care Patient reports overall improvement to bilateral edema after administration of IV lasix.? Cardiology following pending echo to evaluate for cardiomyopathy.? Patient still with complaints of LT sided neck pain added prednisone and toradol Asymptomatic bradycardia, ACS r/o. 10/12: DISCHARGED Patient BLE swelling improved and relief of neck pain. Echo showed: No cardiomyopathy Summary ? 1. Left ventricular chamber dimension is normal. ? 2. Left ventricular systolic function is normal, estimated at 60-65%. ? 3. The left ventricular diastolic function is normal. ? 4. Right ventricular systolic function is normal. ? 5. No significant valvular disease. Overall improvement to symptoms was discharged to home and can follow up with OBGYN. Status at Discharge Functional status at discharge: independent ambulation Time Spent with Patient Time attestation: Total time spent providing and/or coordinating discharge services: Time spent: Less than 30 minutes Exam Narrative: Physical Exam: GENERAL: Alert and oriented x 3. No acute distress. EYES: EOMI. No scleral icterus. PERRLA. HEENT: Moist mucous membranes. LUNGS: Clear to auscultation bilaterally. No accessory muscle use. CARDIOVASCULAR: Regular rate and rhythm. No murmur. No JVD. S1-S2 ABDOMEN: Soft, mild tenderness and non-distended. No palpable masses. EXTREMITIES: No edema. Non-tender SKIN: No rashes or lesions. Skin warm, dry. NEUROLOGIC: No focal neurological deficits. CN II-XII grossly intact PSYCHIATRIC: Appropriate mood and affect. Good judgement and insight. No visual or auditory hallucinations. No suicidal or homicidal ideation. Neuro: Sensory Exam: No Sensory deficit (Neuro) Discharge Plan Discharge Attending physician on discharge: Demetra Heaton Consulting providers: Aspen Jennings; Rossy Ernst; Juan Jose Vu; Sarwat Armstrong; Jaquelin Jolley [facility]
--- NOTE | 2023-10-14 12:36 | PM.IMHP ---
H&P: HPI History of Present Illness Date/Time: 10/12/23 0800 POTTER OR CERAMIC ARTIST consult, CNM at to see 28 y.o who had a vaginal delivery on 10/07/23, was complicated by preeclampsia without severe features. presented to ED with neck and chest pain, leg swelling, urinary tract infection, and is admitted the telemetry floor. pt currently experiencing neck pain and legs have improved since arrival per her assessment. Baby is at home with her older sister Chief Complaint: neck pain, chest pain, pedal edema Review of Systems Review of Systems: All systems reviewed & are unremarkable except as noted in HPI and below PMFSH Past Medical History Medical History (Updated 10/12/23 @ 13:55 by Jaquelin Jolley, WAREHOUSE WORKER 2ND SHIFT) Anxiety Bronchitis Fracture rt shoulder, lt elbow Migraines Rib fracture Surgical History Surgical History H/O hernia repair with stent History of kidney surgery kidney reflux surgery Family History Family History Sibling Hypertension Heart disease Asthma Diabetes mellitus Father Hypertension Social History Social History Smoking status: Never smoker Second hand tobacco smoke exposure: No Alcohol intake: never Substance use: never Substance use type: does not use Do You Feel Safe in your Home?: Yes Lack of Transportation: No Lack of Food: Never True Current Housing: I Have Housing Concerned About Future Housing: No Difficulty Paying Gas/Electric Bills: No Difficulty Paying for Meds: No Currently Unemployed: No Education: High School Diploma/GED Difficulty w/ Childcare or Family Care: No Gender identity (if verbalized by the patient): Female Sexual Orientation (if Verbalized by the Patient): Straight or Heterosexual Spiritual care concerns: No Meds Home Medications and Allergies Home Medications Medication Instructions Recorded Confirmed Type acetaminophen 500 mg capsule 1,000 mg PO Q6H PRN Headache 10/07/23 10/12/23 History oxycodone-acetaminophen 5 mg-325 1 tablet PO Q6H PRN Pain (Scale 10/07/23 10/12/23 History mg tablet Score 7-10) amoxicillin 875 mg-potassium 1 tablet PO Q12H #14 tabs 10/13/23 Rx clavulanate 125 mg tablet ketorolac 10 mg tablet 10 mg PO Q8H PRN pain #20 tabs 10/13/23 Rx prednisone 20 mg tablet 40 mg PO DAILY@0800 #6 tabs 10/13/23 Rx Allergies Allergy/AdvReac Type Severity Reaction Status Date / Time No Known Allergies Allergy Verified 10/07/23 03:11 Exam Const: General: cooperative Chest: Chest palpation & inspection: normal inspection of the chest Cardio: Rate: regular rate Back/Spine/Pelvis: Back: no CVA tenderness Skin: General skin exam: normal color Neuro: General: patient oriented x3 Extrem: Right lower extremity: edema Details: pitting and 3+ Left lower extremity: edema Details: pitting and 3+ Assessment and Plan Assessment and plan (1) Urinary tract infection: Code(s): N39.0 - Urinary tract infection, site not specified Status: Acute (2) Acute neck pain: Code(s): M54.2 - Cervicalgia Status: Acute (3) Fluid overload: Code(s): E87.70 - Fluid overload, unspecified Status: Acute Plan consulted with dr. pedersen we had a plan to see pt a week to repeat urine culture and check bp continue to be monitored on the medical floor until discharge
== END 2023-10-13 14:10 | disposition home or self-care (01) ==
LOC: ANHED 23:19 → ANH2MED 10-12 12:08
PROVIDERS: Nurse Practitioner; Admitting Provider Internal Medicine; Emergency Provider Emergency Medicine; PCP Advanced Practice Midwife; Visit Provider General Practice
DX: O90.89 Other complications of the puerperium, not elsewhere classified (principal); R07.89 Other chest pain; O86.20 Urinary tract infection following delivery, unspecified; N39.0 Urinary tract infection, site not specified; O99.893 Other specified diseases and conditions complicating puerperium; R00.1 Bradycardia, unspecified; O12.05 Gestational edema, complicating the puerperium; E87.70 Fluid overload, unspecified; R06.01 Orthopnea; M54.12 Radiculopathy, cervical region
CPT/HCPCS: 36415; 71045; 71275; 80053; 81001; 81050; 83615; 83690; 83735; 83880; 84156; 84443; 84484; 84550; 85025; 85610; 85730; 87077; 87086; 87088; 87186; 93005; 93306; 96365; 96374; 96375; 96376; 99285; A9270; G0378; G0379; J0696; J1580; J1885; J1940; J7512; Q9967

== ENCOUNTER 2023-10-21 15:27 | Outpatient (CLI) | payer OTHER, SELFPAY ==
[2023-10-21] VITALS (8 sets, daily range): BP systolic 123–140; BP diastolic 81–97; PULSE 59–70
[2023-10-21 16:06] LABS: Basophils Absolute Auto 0.1 K/mm3 (0.0-0.1); Basophils Percent Auto 0.8 % (0.2-1.2); Eosinophils Absolute Auto 0.3 K/mm3 (0-0.3); Eosinophils Percent Auto 2.7 % (0-4.4); Hematocrit 45.5 % (37.0-47.0); Hemoglobin 13.9 g/dL (12.0-15.0); Immature Granulocyte Absolute 0.06 K/mm3 (0.00-0.031); Immature Granulocyte Percent A 0.5 % (0-0.5); Lymphocytes Absolute Auto 2.41 K/mm3 (0.9-3.2); Mean Corpuscular HGB Conc 30.5 g/dl (32-36); Mean Corpuscular Hemoglobin 27.7 pg (26-34); Mean Corpuscular Volume 90.8 fl (80-100); Monocytes Absolute Auto 0.8 K/mm3 (0.1-0.6); Monocytes Percent Auto 6.6 % (2.6-8.5); Neutrophils Percent Auto 70.4 % (45.5-73.1); Platelet Count Result 373 k/mm3 (150-375); Red Blood Count 5.01 M/mm3 (4.2-5.4); Red Cell Distribution Width 14.1 % (11.5-14.5); White Blood Count 12.7 K/mm3 (4.5-10.0)
[2023-10-21 16:10] LABS: Appearance Urine Cloudy (Clear); Bacteria Urine None Seen /hpf; Bilirubin Urine Negative (Negative); Blood Urine 3+ (Negative); Color Urine Yellow (Yellow); Glucose Urine UA Negative (Negative); Ketones Urine Negative (Negative); Leukocyte Esterase Ur 2+ LEU/UL (Negative); Nitrate Urine Negative (Negative); Non Pathogenic Casts 0-2; Protein Urine Trace mg/dL (Negative); RBC Urine >100 /hpf (0-2); Specific Grav Ur 1.019 (1.001-1.035); Squamous Epithelial Cell Urine None Seen /hpf (Few); Urobilinogen Urine 0.2 mg/dL (<2.0); WBC Urine 51-100 /hpf (0-3)
[2023-10-21 16:13] LABS: Add Urine Microscopic? YES
[2023-10-21 16:19] LABS: Alanine Aminotransferase 14 U/L (6-35); Albumin Level 3.9 g/dL (3.5-5.1); Alkaline Phosphatase 129 U/L (38-126); Anion Gap 7 mmol/L (4-12); Aspartate Amino Transferase 21 U/L (14-36); Bilirubin,Total 0.5 mg/dL (0.2-1.3); Blood Urea Nitrogen 10 mg/dL (7-17); Calcium 9.3 mg/dL (8.4-10.2); Carbon Dioxide 25 mmol/L (22-30); Chloride 108 mmol/L (98-107); Estimated Glomerular Filt Rate > 60; Glucose 89 mg/dL (65-110); Potassium 3.8 mmol/L (3.4-5.0); Sodium 140 mmol/L (137-145); Uric Acid 7.1 mg/dL (2.5-7.5)
--- NOTE | 2023-10-21 16:32 | PC.NURSE ---
Essence Ernst CNM notified of vital signs and lab results, give 200 labetalol BID
[2023-10-21] MEDS: LABETALOL HCL 100 MG TABLET 200 MG PO (16:42)
[2023-10-21 17:26] LABS: Creatinine Urine 126.4 mg/dL; Total Protein Urine Random 26 mg/dL; Ur Ttl Prot Creatinine Ratio 0.21 mg/mg (0-0.20)
--- NOTE | 2023-10-21 17:48 | PC.NURSE ---
Patient feels better after taking medication, okay to discharge.
== END 2023-10-21 17:50 | disposition home or self-care (01) ==
LOC: ANHOBOP 15:37 → ANHOBPP 15:38
PROVIDERS: PCP Advanced Practice Midwife; Visit Provider Advanced Practice Midwife
DX: O16.5 Unspecified maternal hypertension, complicating the puerperium (principal)
CPT/HCPCS: 36415; 80053; 81001; 82570; 84156; 84550; 85025; 87086; 99199; A9270

== ENCOUNTER 2024-03-08 18:22 | Emergency (ER) | payer OTHER, SELFPAY ==
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
[2024-03-08 18:25] VITALS: BP 135/97; PULSE 101; RESP 16; TEMP 36.3; O2SAT 100
[2024-03-08] MEDS: dexAMETHasone SOD PHOS INJ 10 MG/ML 1 ML VIAL IV PUSH (19:16)
[2024-03-08] MEDS: PROCHLORPERAZINE EDISYLATE 10 MG/2 ML VIAL IV PUSH (19:17)
[2024-03-08] MEDS: diphenhydrAMINE HCl INJ 50 MG/ML VIAL 25 MG IV PUSH (19:17)
--- NOTE | 2024-03-08 19:17 | ED.HA ---
HPI - Headache General Chief Complaint: Headache Stated Complaint: migraine since 1200 Time Seen by Provider: 03/08/24 19:09 History of Present Illness HPI Narrative: 28-year-old female with a past medical history significant for migraine headaches presenting to the emergency room with a chief complaint of a sudden-onset left-sided headache behind her left eye radiating down her left neck. This headache is dissimilar from her usual migraine headaches. She is not doing any exertional when the sudden-onset headache after 7 hours prior to arrival to the ED. She states she is having some associated bilateral leg weakness that is very mild but no numbness tingling, neuropathy. Endorses some blurriness in her eyes equally. Headache is throbbing, stabbing in sensation behind her left side, unremitting. She has tried her sumatriptan x2 at home without any relief. No history of aneurysms, family history of brain bleed or aneurysms. No surgical history, blood thinner use or aspirin use. She was otherwise in her normal state of health. Related Data Home Medications Medication Instructions Recorded Confirmed acetaminophen 500 mg capsule 1,000 mg PO Q6H PRN Headache 10/07/23 10/12/23 oxycodone-acetaminophen 5 mg-325 1 tablet PO Q6H PRN Pain (Scale 10/07/23 10/12/23 mg tablet Score 7-10) Allergies Allergy/AdvReac Type Severity Reaction Status Date / Time No Known Allergies Allergy Verified 03/08/24 18:27 Review of Systems Review of Systems: As reviewed above All systems reviewed & are unremarkable except as noted in HPI and below PMFSH Past Medical History Medical History (Updated 03/08/24 @ 21:58 by Chung Grant MD) Anxiety Bronchitis Fracture rt shoulder, lt elbow Migraines Rib fracture Surgical History Surgical History H/O hernia repair with stent History of kidney surgery kidney reflux surgery Family History Family History Sibling Hypertension Heart disease Asthma Diabetes mellitus Father Hypertension Social History Social History Smoking status: Never smoker Second hand tobacco smoke exposure: No Alcohol intake: never Substance use: never Substance use type: does not use Do You Feel Safe in your Home?: Yes Lack of Transportation: No Lack of Food: Never True Current Housing: I Have Housing Concerned About Future Housing: No Difficulty Paying Gas/Electric Bills: No Difficulty Paying for Meds: No Currently Unemployed: No Education: High School Diploma/GED Difficulty w/ Childcare or Family Care: No Gender identity (if verbalized by the patient): Female Sexual Orientation (if Verbalized by the Patient): Straight or Heterosexual Spiritual care concerns: No Exam Narrative: GENERAL: [Well-appearing, well-nourished, and in no acute distress.] HEAD: [Normocephalic, atraumatic.] EYES: [PERRLA and EOMI.] ENT: Nares clear, no rhinorrhea or epistaxis. Mucous membranes moist. NECK: Supple. CHEST: [Clear to auscultation. No respiratory distress.] HEART: [Regular rate and rhythm]. No murmur heard. [Normal peripheral pulses.] ABDOMEN: [Soft, nondistended], [nontender], [No rigidity or guarding] EXTREMITIES: Normal range of motion. [No edema.] SKIN: Warm, dry, no rash. NEURO: [No focal deficits]. Alert and oriented [x3.] Full strength and sensation throughout both arms and legs, no ataxia, no visual deficits, extraocular pearson are intact. Extraocular movements are intact. PSYCH: [Normal mood and affect.] Course Vital Signs Vital signs: Vital Signs Temperature 36.3 C L 03/08/24 18:25 Pulse Rate 101 H 03/08/24 18:25 Respiratory Rate 16 03/08/24 18:25 Blood Pressure 135/97 H 03/08/24 18:25 Pulse Oximetry 100 03/08/24 18:25 Oxygen Delivery R
[2024-03-08] MEDS: SODIUM CHLORIDE 0.9% IV 1,000 ML 999 ML IV CONT (19:18)
[2024-03-08 19:20] LABS: Basophils Absolute Auto 0.1 K/mm3 (0.0-0.1); Basophils Percent Auto 0.4 % (0.2-1.2); Eosinophils Absolute Auto 0.6 K/mm3 (0-0.3); Eosinophils Percent Auto 4.3 % (0-4.4); Hematocrit 43.1 % (37.0-47.0); Hemoglobin 13.5 g/dL (12.0-15.0); Immature Granulocyte Absolute 0.04 K/mm3 (0.00-0.031); Immature Granulocyte Percent A 0.3 % (0-0.5); Lymphocytes Absolute Auto 1.62 K/mm3 (0.9-3.2); Lymphocytes Percent Auto 11.7 % (18.3-44.2); Mean Corpuscular HGB Conc 31.3 g/dl (32-36); Mean Corpuscular Hemoglobin 28.7 pg (26-34); Mean Corpuscular Volume 91.7 fl (80-100); Mean Platelet Volume 12.1 fl (7.4-10.4); Monocytes Percent Auto 6.9 % (2.6-8.5); Neutrophils Absolute Auto 10.6 K/mm3 (1.3-6.7); Neutrophils Percent Auto 76.4 % (45.5-73.1); Platelet Count Result 336 k/mm3 (150-375); Red Cell Distribution Width 13.3 % (11.5-14.5); White Blood Count 13.9 K/mm3 (4.5-10.0)
[2024-03-08] MEDS: MAGNESIUM SULF 2 GM/WATER 50ML 2 GM/50 ML BAG IVPB (19:20)
[2024-03-08 19:28] LABS: Anion Gap 9 mmol/L (4-12); Blood Urea Nitrogen 11 mg/dL (7-17); Carbon Dioxide 26 mmol/L (22-30); Chloride 105 mmol/L (98-107); Estimated CRCL calculation 98 ml/min; Estimated Glomerular Filt Rate > 60; Glucose 102 mg/dL (65-110); Magnesium 1.9 mg/dL (1.6-2.3); Potassium 3.7 mmol/L (3.4-5.0); Sodium 140 mmol/L (137-145)
[2024-03-08 20:13] VITALS: BP 120/84; PULSE 90; RESP 15; O2SAT 100
[2024-03-08 20:14] LABS: BEDSIDEPREGUCG Negative (Negative)
[2024-03-08] MEDS: HYDROmorphone HCL INJ (*CRX) 1 MG/ML SYR 0.5 MG IV PUSH (20:49)
[2024-03-08 22:16] VITALS: BP 130/84; PULSE 91; RESP 15; O2SAT 100
== END 2024-03-08 22:17 | disposition home or self-care (01) ==
PROVIDERS: Emergency Provider Student in an Organized Health Care Education/Training Program
DX: G43.909 Migraine, unspecified, not intractable, without status migrainosus (principal)
CPT/HCPCS: 36415; 70496; 70498; 80048; 81025; 83735; 85025; 96365; 96366; 96375; 99284; J0780; J1100; J1171; J1200; J3475; J7030; Q9967

== ENCOUNTER 2025-05-26 15:05 | Emergency (ER) | payer OTHER, SELFPAY ==
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
--- OUTSIDE RECORDS SUMMARY | 2025-05-26 15:07 | XMS_ITS | Clinical Summary ---
Author Organization [facility] Address [address] [place] [address] Care Team Providers Care Hematology Nurse Educator Name Role Phone Brandon Vázquez MD Primary Care Provider Allergies No known active allergies Medications ALPRAZolam (XANAX) 0.5 mg tablet TAKE 1 TABLET BY MOUTH EVERY 6 HOURS NEEDED FOR ANXIETY 3 Active SUMAtriptan (IMITREX) 100 mg tablet 3 Active etonogestreL (Nexplanon) 68 mg Implant Inject by subcutaneous injection. Active Active Problems No known active problems Family History Medical History Relation Name Comments Diabetes Sister 1 Heart Disease Sister 1 Diabetes Sister 2 Relation Name Status Comments Brother Alive Daughter Alive Father Alive Mother Alive Sister 1 Alive Sister 2 Alive Sister 3 Alive Son Alive Social History Tobacco Use Types Packs/Day Years Used Date Smoking Tobacco: Never Smokeless Tobacco: Never Alcohol Use Standard Drinks/Week Comments Yes 0 (1 standard drink = 0.6 oz pur e alcohol) occasional Comments Unknown Sex and Gender Information Value Date Recorded Sex Assigned at Not on file Legal Sex Female 12:49 PM CDT Gender Identity Not on file Sexual Orientation Not on file Last Filed Vital Signs Vital Sign Reading Time Taken Comments Blood Pressure 123/88 09/21/2022 1:43 PM CDT Pulse 77 09/21/2022 1:43 PM CDT Temperature 36.7 C (98.1 F) 09/21/2022 1:43 PM CDT Respiratory Rate 10 09/21/2022 1:43 PM CDT Oxygen Saturation 100% 09/21/2022 1:43 PM CDT Inhaled Oxygen Concentration - - Weight 83.9 kg (185 lb) 09/21/2022 1:43 PM CDT Height 170.2 cm (5' 7) 09/21/2022 1:43 PM CDT Body Mass Index 28.98 09/21/2022 1:43 PM CDT Plan of Treatment Health Maintenance Due Date Last Done Comments DTAP/TDAP/TD VACCINES (1 - Tdap) 2012 HEPATITIS B VACCINES (1 of 3 - 19+ 3-dose series) 01/2013 HPV/Cotest (21-29) 2014 HPV/Cotest (30-65) 08/06/2023 INFLUENZA VACCINE (#1) 2024 CERVICAL CANCER SCREENING 02/05/2025 PAP SMEAR 02/05/2025 02/05/2022 HPV VACCINES (No Doses Required) Completed Insurance MEDICAID Care Teams Hematology Nurse Educator Relationship Specialty Start Date End Date Brandon Vázquez MD PCP - General Internal Medicine 09/21/22
--- OUTSIDE RECORDS SUMMARY | 2025-05-26 15:07 | XMS_ITS | Data Portability ---
Author Organization [facility], [place] Address [address] [place] [address] Assessment Encounter Date Assessment Date Assessment LastModified by Organization Details LastModified Time 11/04/2023 11/04/2023 Pt here for BP check. Started on 300mg Labetalol BID at 10/28/23 pp visit. BP today normal. Pt instructed to continue on Labetalol at this time and to call with any changes in sxs. [email or web address] Not available 11/04/2023 16:00:03 10/26/2024 10/26/2024 Annual gynecological exam performed. Patient will come back in a year unless there are new symptoms. [email or web address] Not available 10/26/2024 10:22:46 Plan of Treatment Reminders Order Date Submit Date Provider Last Modified By Organization Details Last Modified Time Details Appointments None recorded. Lab hsv-1 igg Ab, serum 2024 025 [facility] (Lab), [address], [place], [address], 5 05:01:18 hsv-2 igg Ab, serum 2024 025 [facility] (Lab), [address], [place], [address], 5 05:01:18 hbcab (hepatitis B core Ab) igm, serum 2024 025 [facility] (Lab), [address], [place], [address], 5 05:01:18 HBsAg (hepatitis B surface Ag), serum 2024 025 [facility] (Lab), [address] [facility], [place], [address], 5 05:01:18 hepatitis C virus Ab, serum 2024 025 [facility] (Lab), [address] [facility], [place], [address], 5 05:01:18 HIV 1+2 AB + HIV 1 p24 Ag, qualitativ e immunoassa y, serum 2024 025 [facility] (Lab), [address] [facility], [place], [address], 5 11:10:36 RPR (rapid plasma reagin), serum 2024 025 [facility] (Lab), [address] [facility], [place], [address], 5 05:01:18 pap, IG + HR HPV - HPV regardless but if HPV is positive need subtyping 16,18/45 add gc/ct/tric h 2024 025 [facility] (Lab), [address] [place], [address], 5 10:11:08 herpes simplex + varicella zoster, culture, unspecifie d specimen - left labia majora 2024 025 [facility] (Lab), [address] [place], [address], 5 10:11:09 test, urine 2023 024 [place], [address], [address], [place], [address], 12:56:45 Referral None recorded. Procedures None recorded. Surgeries None recorded. Imaging non-stress test 2023 [email or web address] [place], [address], [address], [place], [address], 4 06:58:23 Medication Orders Valtrex 1 gram tablet 2024 025 [id number] [address], [place], [address], 5 11:32:21 labetalol 100 mg tablet 2023 024 [email or web address] [id number], [address], [place], [address], 5 10:24:00 hydroxyzin e HCl 25 mg tablet 2023 025 [id number], [address], [place], [address], 5 10:24:00 Nexplanon 68 mg subdermal implant 2023 024 [email or web address] Not available 12:58:11 Patient TargetsNo targets recorded. Patient InstructionsNo instructions recorded. Reason for Referral None Reported. Results Created Date Observation Date Name Description Value Unit Range Abnormal Flag Note LastModifiedBy Organization Detail LastModifiedTime 09/28/19 24 09/28/2023 CULTU RE: GROUP B STREP SCREE N, REFLE X SUSCE PTIBI LITY result report SEE RESULT S BELOW Test: Cultu re: Group B Strep , Refle x Susce ptibi lity ([facility]/ [facility] ) Speci men Sourc e: Vagin a/Rec wayne Speci men Type: Vagin al/Re ctal Speci men Date: 5:05 PM Resul t Date: 5/4/2 024 1:56 PM Resul t Statu s: Final resul t Abnor mal: No Resul ting Lab: [facility] [address] [facility] [address] Tel: [phone] CULTU RE ----- ----- ----- --- No Group B strep isola fernando at 2 days (olivia ctive broth pablo casey t) Not Available [facility] (Lab) [address] [facility], [place], [address], 10/01/2023 15:00:07 10/05/19 24 10/05/2023 PROTE IN/CR EATIN INE RATIO , URINE creatinine, urine 124.2 mg/dL R-No refer ence range estab lishe d for this assay Not Available [facility] (Lab) [address] [facility], [place], [address], 10/06/2023 03:31:17 10/05/19 24 10/05/2023 PROTE IN/CR EATIN INE RATIO , URINE protein, urine 38 mg/dL R-No refer ence range estab lishe d for this assay Not Available [facility] (Lab) [address] [facility], [place], [address], 10/06/2023 03:31:17 10/05/19 24 10/05/2023 PROTE IN/CR EATIN INE RATIO , URINE protein/crea tinine ratio, urine 0.31 . No Refer ence Range avail able for Rando m Urine s. A prote in to creat inine ratio of >=0.1 9 is a good predi ctor of signi fican t prote inuri a. A level of <0.14 can rule out signi fican t prote inuri a. Not Available [facility] (Lab) [address] [facility], [place], [address], 10/06/2023 03:31:17 10/28/19 24 10/28/2023 pregn sahara test, urine HCG negati ve Not Available [facility] [address], [place], [address], 10/28/2023 12:56:14 10/27/19 25 10/26/2024 IMAGE GUIDE D PAP AND HPV REGAR DLESS image guided Pap, HPV regardless of Pap result SEE RESULT S BELOW abnormal CASE REPOR T: Cytol ogy Gynec ologi umu Repor t Case: [id number] Autho niya rain Provi julio cesar: Rosy Fernandez NP Colle cted: 10/26 1027 Order ing Locat ion: [place] Patho lograul Gomezi yuliya: 10/29 0837 First Scree n: Ines malcolm, Siddhartha saldivar, CT Speci men: Scree phu Pap - Image d, Cervi x STATE MENT OF ADEQU ACY: Satis facto ry for evalu ation Trans forma tion zone compo nent prese nt ----- ----- ----- ----- ----- ----- ----- ----- ----- ----- ----- ----- ----- ----- ----- ----- ----- ---- FINAL DIAGN OSIS: Negat mario for Intra epith elial Dulce davila or Franklin robbins ([facility]) . Elect alberto dubois d by Siddhartha Stovall am, CT on 025 at 0723 CDT ----- ----- ----- ----- ----- ----- ----- ----- ----- ----- ----- ----- ----- ----- ----- ----- ----- ---- HPV RESUL TS: HPV mRNA E6/E7 : Posit mario - HPV mRNA Detec fernando HPV GENOT YPE 16 (TIGRE) : Not Detec fernando HPV GENOT YPE 18/45 (TIGRE) : Not Detec fernando NOTE: This high risk HPV mRNA assay detec ts fourt een high- risk HPV types (16, 18, 31, 33, 35, 39, 45, 51, 52, 56, 58, 59, 66, 68) witho ut diffe renti ation . This assay can diffe renti ate HPV 16 from HPV 18/45 , but does not diffe renti ate betwe en HPV 18 and HPV 45. A negat mario HPV 16, 18/45 genot ype assay resul t does not exclu de the possi bilit y of cytol ogic abnor malit ies or of futur e or under lying MARIA LUZ 1, MARIA LUZ 3 or cance r. COMME NT: This speci men was revie wed by a Cytot echno logis t and/o r Patho logis t (as indic ated in this repor t) after evalu ation using the Thinp rep Imagi ng Syste m. CLINI UMU INFOR MATIO N: Menst rual Statu s: LMP (if appli cable ): Clini umu Histo ry/Pr eviou s Pap: Type of Neopl angi (if appli cable ): Signi fican t Clini umu Findi ngs: Other Histo ry: Hormo nicholas (if appli cable ): PAP EDUCA JOEL L NOTE: The Pap Test is a scree phu test with an inher ent false negat mario rate. Liqui d-bas ed sampl ing may decre ase, but will not elimi brenden, false negat mario resul ts. A negat mario resul t does not precl ude the prese nce and/o r devel opmen t of disea se, since the prese nce of abnor mal cells in the sampl e depen ds on the locat ion of the lesio n and sampl ing techn ique. Shemar nued regul ar scree phu is the best metho d of cance r preve ntion . If repor fernando cytol ogic findi ng do not corre late with physi umu and/o r histo rical findi ngs, furth er inves tigat ion is recom tom d, as clini manny velasquez nted. Not Available [facility] (Lab) [address], [place], [address], 11/03/2024 10:11:08 10/27/19 25 10/26/2024 CT/GC AND TRICH OMONA S VAGIN TRAY (RRNA ), THINP REP VIAL CT/GC and trichomonas vaginalis (rrna), thinprep SEE RESULT S BELOW negati ve CHLAM YDIA TRACH OMATI S, PCR: Negat mario NEISS ERIA GONOR RHOEA E, PCR: Negat mario TRICH OMONA S VAGIN TRAY RIBOS OMAL RNA (RRNA ): Negat mario Not Available [facility] (Lab) [address], [place], [address], 11/03/2024 10:11:08 10/27/19 25 10/26/2024 CULTU RE: HSV/ VZV hsv culture/type Commen t abnormal 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 Typin g was confi rmed by monoc lonal antib indra micro scopi c immun ofluo resce nce. Not Available [facility] (Lab) [address], [place], [address], 11/03/2024 10:11:09 10/27/19 25 10/26/2024 CULTU RE: HSV/ VZV viral culture, rapid,varice lla Commen t Herpe s simpl ex virus was isola fernando and confi rmed by fluor escen t antib indra stain ing. The isola tion of Varic margaret- Zoste r virus from this cultu re is not possi ble due to the growt h of Herpe s simpl ex virus . This does not rule out the possi bilit y of Varic margaret- Zoste r virus infec tion. Not Available [facility] (Lab) [address], [place], [address], 11/03/2024 10:11:09 09/11/19 24 09/11/2023 US, obste tric, follo w-up No observ ation record ed. [email or web address], [place], [address], 09/12/2023 14:31:45 09/13/19 24 09/13/2023 US, obste tric, follo w-up No observ ation record ed. [email or web address] [place] [address], [place], [address], 09/13/2023 18:01:12 09/13/19 24 09/13/2023 US, romero tric, follo w-up No observ ation record ed. [email or web address] [place] [address], [place], [address], 09/15/2023 12:26:42 09/26/19 24 09/26/2023 non-s tress test No observ ation record ed. [email or web address] [address], [place], [address], 09/26/2023 22:51:11 10/05/19 24 10/05/2023 non-s tress test No observ ation record ed. [email or web address] [place] [address], [place], [address], 10/05/2023 15:55:53 10/05/19 24 10/05/2023 US, romero tric, bioph ysica l profi le No observ ation record ed. [email or web address] [place] [address], [place], [address], 10/05/2023 16:15:53 10/05/19 24 10/05/2023 US, obstsabina tric, bioph ysica l profi le No observ ation record ed. [email or web address] [place] [address], [place], [address], 10/27/2023 11:37:23 10/11/19 24 10/11/2023 CT, angio gram, chest , w/ contr ast No observ ation record ed. [email or web address] [address] [address], [place], [address], 10/20/2023 16:36:30 10/12/19 24 10/11/2023 XR, chest , 1 view No observ ation record ed. [address] [facility] [address], [place], [address], 10/20/2023 16:06:43 10/12/19 24 10/12/2023 US, doppl er echoc ardio gram, w/ color flow No observ ation record ed. [facility] [address] [facility] [address], [place], [address], 10/12/2023 17:15:42 Result Notes None recorded. Problems Name Problem SNOMED Code Status Onset Date Resolution Date Notes Provider Name and Address Organization Details Recorded Time COVID-19 825366267 Completed serial growth, asa [facility] 4 14:18:09 Low-lyin g placenta 334774623 Com[facility] 4 14:18:09 Placenta circumva llata 2246806 Completed serial growth [facility] 4 14:18:09 RhD negative 775770869 Completed Rhogam 28 wks [facility] 4 14:18:09 Pregnanc y-induce d hyperten isi 96990742 Completed 2 elevated blood pressure s, separate hospital visits Rd Hilario [facility] 4 14:18:[address] Concept Completed 201706/05/2020 Encntr for trimmer buffing wheel exam (general ) (routine ) w/o abn findings ;Practic e ID: [address] Rd [address] [facility] 1 15:28:43 Acute vaginiti s 31729262 Completed 201706/05/2020 Acute vaginiti s;Record ed Elsewher e: No [facility]: EHR Professional Housing Consultant víctor: N Practi ce ID: 0001 Que lable Time: 02:30:[address] b[address], [facility] 15:28:18 Chronic migraine without aura [id number] 4105 Active 2018 Chronic migraine w/o aura, not intracta ble, w/o stat migr;Pra ctice ID: 0001 Not Available [facility] 14:49:03 Pregnanc y detectio n examinat ion Completed 201806/05/2020 Encounte r for pregnanc y test, result positive ;Practic e ID: 0001 Rd bates, [facility] 15:28:50 Uterine size for dates discrepa ncy Completed 201806/05/2020 Uterine size-belen e discrepa ncy, first trimeste r;Practi ce ID: 0001 Rd bates, [facility] 15:28:47 Gestatio n period, 12 weeks 12610171 Completed 201806/05/2020 12 weeks gestatio n of pregnanc y;Practi ce ID: 0001 Rd bates, [facility] 15:28:25 Antenata l screenin g Completed 201806/05/2020 Encounte r for antenata l screenin g for nuchal transluc ency;Rec orded Elsewher e: No Locat ion: [facility] S ource: EHR Professional Housing Consultant víctor: N Practi ce ID: 0001 Que lable Time: 04:45:[address] bates, [facility] 15:28:20 Normal pregnanc y in multigra forrest [id number] 4106 Completed 201906/05/2020 Encounte r for suprvsn of normal pregnanc y, second trimeste r;Practi ce ID: 0001 Rd bates, [facility] 15:28:36 Antenata l screenin g for malforma tion Completed 201906/05/2020 Encounte r for antenata l screenin g for malforma tions;Pr actice ID: 0001 Rd bates, [facility] 15:28:22 Gestatio n period, 24 weeks 537958717 Completed 201906/05/2020 24 weeks gestatio n of pregnanc y;Practi ce ID: 0001 Rd bates, [facility] 15:28:27 Pregnanc y, childbir th and puerperi um finding Completed 201906/05/2020 Encntr for suprvsn of normal first preg, second trimeste r;Practi ce ID: 0001 Rd bates, [facility] 15:28:39 malforma tion of central nervous system 72227340186 07 Completed 201906/05/2020 Maternal care for (suspect ed) cnsl malform in fetus, unsp;Pra ctice ID: 0001 Rd bates, [facility] 15:28:33 Gestatio n period, 29 weeks 56875151 Completed 201906/05/2020 29 weeks gestatio n of pregnanc y;Practi ce ID: 0001 Rd Hilario null, [facility] 15:28:28 Pregnanc y, childbir th and puerperi um finding Completed 201906/05/2020 Encntr for suprvsn of normal first preg, third trimeste r;Record ed Elsewher e: No Locat ion: Artem muhammad [facility] S ource: EHR Professional Housing Consultant víctor: N Practi ce ID: 0001 Que lable Time: 10:00:[address] Hilario null, [facility] 1 15:28:41 Pregnanc y 56856510 Completed 201903/24/2020 Rd Hilario null, [facility] 4 14:18:18 Migraine 96076765 Completed 201911/28/2020 mayuri reeves risks Nayla Contreras null, [facility] 1 13:05:01 Migraine 32263527 Completed 2019 mayuri reeves risks Sivan Ramos hl null, [facility] 1 12:33:46 Pregnanc y 14942838 Completed 201911/07/2020 Rd Hilario null, [facility] 4 14:18:18 COVID-19 004841117 Completed 2020 second trimeste r Sivan Ramos hl null, [facility] 1 12:33:46 Pregnanc y 99929197 Completed 202210/10/2023 Rd Hilario null, [facility] 4 14:18:18 Problem Notes None recorded. Procedures Surgical History Date Name Laterality Status Provider Name and Address Organization Details Recorded Time 10/28/19 24 Control Implant Insertion completed Nayla Contreras [facility] 10/28/2023 12:55:45 03/16/20 23 Date of Last Pap Smear completed Nayla Contreras [facility] 03/16/2023 18:56:54 11/07/19 23 Nexplanon Removal completed Nayla Contreras [facility] 11/06/2022 11:31:20 09/28/19 23 operation on extraocular muscle completed Nayla Contreras [facility] 11/06/2022 11:30:49 11/29/19 21 Control Implant Insertion completed Rossy Ernst CNM [address], [place], [address], [place] [facility] 11/28/2020 13:29:46 05/30/19 14 kidney operation completed Nayla Contreras [facility] 08/17/2021 13:11:38 05/30/19 12 Hernia repair w/mesh completed Nayla Contreras [facility] 08/17/2021 13:11:30 Imaging Results None recorded. Procedure Notes None recorded. Medical Equipment None Reported. Allergies Allergen ID Allergen Name Allergen Category Reaction Reaction Severity Criticality Documentation Date Start Date Code Code System Note Provider Name and Address Organization Details Recorded Time 55269 ibuprofen medicatio n Not available Not available Not available 05/02/2025 5640 RxNorm Not Available caden - External Data Service - prod 15:42:07 Medications Name Sig Start Date Stop Date Status Note LastModified by Organization Details LastModified Time cyclobenz aprine 10 mg tablet TAKE 1 TABLET BY MOUTH AT BEDTIME NEEDED FOR MUSCLE SPASM 03/16 completed Not Available Not Available Not Available Colace 100 mg capsule Take 1 capsule every day by oral route. 09/17 completed Not Available Not Available Not Available labetalol 200 mg tablet 10/26 completed Not Available Not Available Not Available trazodone 50 mg tablet TAKE 1 TABLET BY MOUTH AT BEDTIME NEEDED FOR SLEEP-IN SOMNIA 10/26 completed Not Available Not Available Not Available cetirizin e 10 mg tablet TK 1 T PO D 04/19 completed Not Available Not Available Not Available azithromy maria luz 250 mg tablet TAKE 2 TABLETS BY MOUTH FOR 1 DAY THEN TAKE 1 TABLET BY MOUTH DAILY FOR 4 DAYS 09/25 completed Not Available Not Available Not Available ofloxacin 0.3 % eye drops PLACE 1 DROP IN LEFT EYE 4 TIMES A DAY 09/13 completed Not Available Not Available Not Available nystatin 100,000 unit/gram topical ointment APPLY TOPICALL Y TO THE AFFECTED AREA TWICE DAILY 02/05 completed Not Available Not Available Not Available fluconazo le 150 mg tablet 1 tab po as needed, not to exceed more than 2 in a 7 day period 08/16 completed Not Available Not Available Not Available ampicilli n 500 mg capsule Take 1 capsule twice a day by oral route for 10 days. 01/05 completed Not Available Not Available Not Available valacyclo vir 1 gram tablet TAKE 1 TABLET BY MOUTH EVERY 12 HOURS FOR 7 DAYS active Not Available Not Available No t Available sumatript an 100 mg tablet TAKE 1 TABLET BY MOUTH NEEDED FOR HEADACHE , MAY REPEAT IN 2 HOURS. MAX 2 TABS/24 HRS active Not Available Not Available No t Available hydrocodo ne 5 mg-acetam inophen 325 mg tablet TAKE 1 TABLET BY MOUTH EVERY 6 HOURS FOR 3 DAYS NEEDED FOR PAIN 11/06 completed Not Available Not Available Not Available ondansetr on HCl 8 mg tablet take 1 tablet by oral route 2 hours before procedur e 10/01 completed Not Available Not Available Not Available metronida zole 0.75 % (37.5 mg/5 gram) vaginal gel INSERT 1 APPLICAT ORFUL VAGINALL Y EVERY DAY AT BEDTIME 09/25 completed Not Available Not Available Not Available ondansetr on HCl 4 mg tablet TAKE 1 TABLET BY MOUTH EVERY 4 TO 6 HOURS NEEDED 09/27 completed Not Available Not Available Not Available prednison e 20 mg tablet TAKE 3 TABLETS BY MOUTH ONCE DAILY FOR 5 DAYS 10/27 completed Not Available Not Available Not Available ceftriaxo ne 250 mg solution for injection Take 250 mg by injectio n route. 08/16 completed Not Available Not Available Not Available terconazo le 0.8 % vaginal cream INSERT 1 APPLICAT ORFUL VAGINALL Y EVERY DAY FOR 3 DAYS 02/05 completed Not Available Not Available Not Available topiramat e 25 mg tablet 03/16 completed Not Available Not Available Not Available metronida zole 500 mg tablet TAKE 1 TABLET BY MOUTH TWICE DAILY FOR 7 DAYS 02/05 completed Not Available Not Available Not Available ciproflox acin 500 mg tablet TAKE 1 TABLET BY MOUTH EVERY 12 HOURS FOR 7 DAYS 09/25 completed Not Available Not Available Not Available amitripty line 50 mg tablet TAKE 1/2 TABLET BY MOUTH DAILY AT BEDTIME FOR 1 WEEK. INCREASE TO 1 TABLET DAILY AT BEDTIME THEREAFT ER 11/06 completed Not Available Not Available Not Available butalbita l-acetami nophen-ca ffeine 50 mg-325 mg-40 mg tablet TAKE 1-2 TABLETS BY MOUTH EVERY 6 HOURS NEEDED HEADACHE 09/03 completed Not Available Not Available Not Available ketorolac 10 mg tablet 10/27 completed Not Available Not Available Not Available nystatin- triamcino lone 100,000 unit/gram -0.1 % topical ointment Apply by topical route for 7 days. 02/05 completed Not Available Not Available Not Available oxycodone -acetamin ophen 5 mg-325 mg tablet TAKE 1 TABLET BY MOUTH EVERY 6 HOURS 10/27 completed Not Available Not Available Not Available hydrocort isone 2.5 % topical cream with perineal applicato r APPLY 1 APPLICAT ION ONTO THE AFFECTED AREA 2-3 TIMES DAILY 07/20 completed Not Available Not Available Not Available alprazola m 0.5 mg tablet TAKE 1 TABLET BY MOUTH EVERY 8 HOURS NEEDED FOR ANXIETY 10/26 completed Not Available Not Available Not Available amoxicill in 875 mg tablet 09/13 completed Not Available Not Available Not Available Proctofoa m 1 % topical APPLY 1 APPLICAT ION ONTO THE AFFECTED AREA 2-3 TIMES DAILY 2023 active Not Available Not Available Not Avai lable cephalexi n 500 mg capsule TAKE 1 CAPSULE BY MOUTH EVERY 12 HOURS FOR 7 DAYS 09/27 completed Not Available Not Available Not Available triamcino lone acetonide 0.1 % topical ointment APPLY THIN LAYER TOPICALL Y TO THE AFFECTED AREA TWICE DAILY 02/05 completed Not Available Not Available Not Available polymyxin B sulfate 10,000 unit-trim ethoprim 1 mg/mL eye drops 09/13 completed Not Available Not Available Not Available folic acid 1 mg tablet 11/06 completed Not Available Not Available Not Available hydroxyzi ne HCl 25 mg tablet Take 1 tablet 3 times a day by oral route. 10/26 completed Not Available Not Available Not Available ceftriaxo ne 500 mg solution for injection bring to office for injectio n 08/16 completed Not Available Not Available Not Available ergocalci ferol (vitamin D2) 1,250 mcg (50,000 unit) capsule TAKE 1 CAPSULE BY MOUTH EVERY WEEK 07/20 completed Not Available Not Available Not Available ibuprofen 600 mg tablet 12/06 completed Not Available Not Available Not Available methylpre dnisolone 4 mg tablets in a dose pack PLEASE SEE ATTACHED FOR DETAILED DIRECTIO NS 10/26 completed Not Available Not Available Not Available labetalol 100 mg tablet TAKE 3 TABLETS BY MOUTH TWICE A DAY 10/26 completed Not Available Not Available Not Available albuterol sulfate HFA 90 mcg/actua tion aerosol inhaler INHALE 2 PUFFS BY MOUTH EVERY 4 HOURS NEEDED 11/06 completed Not Available Not Available Not Available hydroxyzi ne HCl 10 mg tablet TAKE 1 TABLET EVERY 4 HOURS BY ORAL ROUTE NEEDED, FOR ANXIETY. 10/26 completed Not Available Not Available Not Available ondansetr on 4 mg disintegr ating tablet DISSOLVE 1 TABLET ON THE TONGUE EVERY 8 HOURS NEEDED FOR NAUSEA OR VOMITING 11/06 completed Not Available Not Available Not Available Imitrex 25 mg tablet take 1 tablet by oral route after onset of migraine ; may repeat after 2 hours if headache returns, not to exceed 200mg in 24hrs 05/02 completed [facility] odify By: nash jennings DateTime : 06/15/19 18 02:30:00 PM Not Available Not Available Not Available fluticaso ne propionat e 50 mcg/actua tion nasal spray,sherine pension 10/01 completed Not Available Not Available Not Available sertralin e 50 mg tablet TAKE 1 TABLET BY MOUTH EVERY DAY AT DINNER 09/25 completed Not Available Not Available Not Available doxycycli ne hyclate 100 mg tablet TAKE 1 TABLET BY MOUTH TWICE DAILY FOR 7 DAYS 02/05 completed Not Available Not Available Not Available naproxen 500 mg tablet TAKE 1 TABLET ORAL ROUTE 2 TIMES PER DAY TAKE WITH FOOD 03/16 completed Not Available Not Available Not Available metoclopr amide 10 mg tablet Take 1 tablet 4 times a day by oral route. 04/15 completed Not Available Not Available Not Available amoxicill in 875 mg-potass ium clavulana te 125 mg tablet TAKE 1 TABLET BY MOUTH TWICE A DAY 10/26 completed Not Available Not Available Not Available hydroxyzi ne pamoate 25 mg capsule TAKE 1 CAPSULE BY MOUTH EVERY 4 HOURS NEEDED FOR ANXIETY 10/26 completed Not Available Not Available Not Available sumatript an 6 mg/0.5 mL subcutane ous pen injector PLEASE SEE ATTACHED FOR DETAILED DIRECTIO NS 03/16 completed Not Available Not Available Not Available escitalop usman 10 mg tablet TAKE 1 TABLET BY MOUTH EVERY DAY 10/26 completed Not Available Not Available Not Available cyclobenz aprine 5 mg tablet TAKE 1 TABLET BY MOUTH EVERY 8 HOURS 03/16 completed Not Available Not Available Not Available bupropion HCl XL 150 mg 24 hr tablet, extended release TAKE 1 TABLET BY MOUTH EVERY DAY IN THE MORNING 02/05 completed Not Available Not Available Not Available .10/26 (28) 1.5 mg-30 mcg (21)/75 mg (7) tablet Take 1 tablet every day by oral route. 04/19 completed Not Available Not Available Not Available nitrofura ntoin monohydra te/macroc rystals 100 mg capsule TAKE 1 CAPSULE BY MOUTH EVERY DAY FOR 7 DAYS 10/04 completed Not Available Not Available Not Available duloxetin e 30 mg capsule,d elayed release TAKE 1 CAPSULE BY MOUTH EVERY DAY 09/25 completed Not Available Not Available Not Available aripipraz ole 2 mg tablet TAKE 1 TABLET BY MOUTH EVERY DAY AT BEDTIME FOR 30 DAYS 10/26 completed Not Available Not Available Not Available FeroSul 325 mg (65 mg iron) tablet TAKE 1 TABLET BY MOUTH EVERY DAY 02/05 completed Not Available Not Available Not Available butalbita l-acetami nophen-ca ffeine 50 mg-300 mg-40 mg capsule TAKE 1 CAPSULE BY MOUTH EVERY 6 HOURS NEEDED 10/27 completed Not Available Not Available Not Available Nexplanon 68 mg subdermal implant Inject 1 implant by subcutan eous route. 2023 active 5/31/202 4 nexplano n (supplie d by office) insert lot [id number] Exp 08/2025 needs removed by 7 Not Available Not Available Not Available cefixime 400 mg capsule TAKE 1 CAPSULE BY MOUTH EVERY DAY DIRECTED FOR 5 DAYS 10/04 completed Not Available Not Available Not Available OneTouch Ultra Blue Test Strip USE TO TEST BLOOD SUGAR FOUR TIMES DAILY 10/10 completed Not Available Not Available Not Available OneTouch Ultra2 Meter USE TO TEST BLOOD SUGAR FOUR TIMES DAILY 10/10 completed Not Available Not Available Not Available OneTouch Delica Plus Lancet 33 gauge 10/10 completed Not Available Not Available Not Available Vitals Date Recorded Body height Body mass index (BMI) Body weight Systolic And Diastolic Provider Name and Address Organization Details Last Updated DateTime 10/05/2023 168.28 cm 30.9 kg/m2 36875.327 41 g 125/81 mm[Hg] Nayla Contreras [facility] 10/05/2023 16:12:25 Date Recorded Body height Body mass index (BMI) Body weight Systolic And Diastolic Systolic And Diastolic Provider Name and Address Organization Details Last Updated DateTime 10/21/2023 168.28 cm 27.7 kg/m2 49922.48 g 161/114 mm[Hg] 160/100 mm[Hg] Nayladavid Contreras [facility] 4 15:59:52 Date Recorded Body height Body mass index (BMI) Body weight Systolic And Diastolic Provider Name and Address Organization Details Last Updated DateTime 10/26/2024 168.28 cm 22.3 kg/m2 58456.34 g 115/74 mm[Hg] Kim Cornejo [facility] 10/26/2024 10:23:17 Date Recorded Body height Body mass index (BMI) Body weight Systolic And Diastolic Systolic And Diastolic Provider Name and Address Organization Details Last Updated DateTime 10/28/2023 168.28 cm 27.2 kg/m2 19240.7 g 149/105 mm[Hg] 150/100 mm[Hg] Nayla Contreras [facility] 4 12:28:45 Date Recorded Body height Systolic And Diastolic Provider Name and Address Organization Details Last Updated DateTime 11/04/2023 168.28 cm 124/83 mm[Hg] Estela Lance [facility] 11/04/2023 15:59:07 Social History Question Answer Notes LastModified by Organizat ion Details LastModified Time Tobacco Smoking Status Never Smoker Nayla bates, [facility] 11/06/2022 11:29:21 Do You Have An Advance Directive? No [email or web address] Information n ot available 11/06/2022 If You Are , What Was Your Level Of Alcohol Consumption Prior To ? Occasional [email or web address] Information not available 11/06/2022 Are You Blind Or Do You Have Difficulty Seeing? No [email or web address] Information n ot available 07/25/2020 What Is Your Level Of Caffeine Consumption? Heavy [email or web address] Information not available 11/06/2022 How Much Tobacco Do You Chew? None Information not available 11/06/2022 In The 14 Days Before Symptom Onset, Have You Had Close Contact With A Laboratory-confirm ed COVID-19 While That Case Was Ill? No [email or web address] Information n ot available 07/25/2020 In The 14 Days Before Symptom Onset, Have You Had Close Contact With A Person Who Is Under Investigation For COVID-19 While That Person Was Ill? No [email or web address] Information not available 07/25/2020 Have You Been To An Area Known To Be High Risk For COVID-19? No [email or web address] Information not available 07/25/2020 Are You Deaf Or Do You Have Serious Difficulty Hearing? No [email or web address] Information not available 07/25/2020 What Type Of Diet Are You Following? REGULAR [email or web address] Information n ot available 07/25/2020 What Is The Highest Grade Or Level Of School You Have Completed Or The Highest Degree You Have Received? [id number] [email or web address] Information not available 11/06/2022 Are There Any Guns Present In Your Home? No [email or web address] Information not available 11/06/2022 What Was The Date Of Your Most Recent Tobacco Screening? 10/28/2023 [email or web address] Information not available 10/28/2023 Have You Ever Been Counseled For Unhealthy Alcohol Use? No [email or web address] Information not available 11/06/2022 Do You Use Protection During Sex? No [email or web address] Information not available 11/06/2022 Do You Use Your Seat Belt Or Car Seat Routinely? Yes [email or web address] Information not available 07/25/2020 Do You Have Smoke And Carbon Monoxide Detectors In Your Home? Yes [email or web address] Information not available 07/25/2020 How Much Tobacco Do You Smoke? No [email or web address] Information not available 10/30/2019 Smoking Pre- No [email or web address] Information not available 11/06/2022 Do You Use Sunscreen Routinely? Yes Information not available 07/25/2020 Has Tobacco Cessation Counseling Been Provided? No [email or web address] Information not available 11/06/2022 Have You Used IV Drugs? No Information not available 11/06/2022 Do You Have Difficulty Walking Or Climbing Stairs? No [email or web address] Information not available 11/06/2022 Sex: Unknown Functional Status Question Answer Note LastModified by Organ[employer]CRMat ion Details LastModified Time Do you use any illicit or recreational drugs? No [email or web address] Information not available 07/25/2020 Do you or have you ever used any other forms of tobacco or nicotine? No [email or web address] Information not available 11/06/2022 What is your level of alcohol consumption? None [email or web address] Information not available 09/14/2023 Do you or have you ever used smokeless tobacco? Never used smokeless tobacco [email or web address] Information not available 11/06/2022 Are you able to walk independently without assistance or assistive devices? YESWOREST [email or web address] Information not available 07/25/2020 Are you able to care for yourself independently? Yes [email or web address] Information not available 11/06/2022 Do you have difficulty dressing, bathing, grooming, or toileting? No [email or web address] Information not available 11/06/2022 Do you or have you ever used e-cigarettes or vape? Never used electronic cigarettes [email or web address] Information not available 11/06/2022 What is your exercise level? Occasional Information not available 09/21/2019 Mental Status Question Answer Note LastModified by Organization D etails LastModified Time Do you feel stressed (tense, restless, nervous, or anxious, or unable to sleep at night)? [id number] Information not available 11/06/2022 Family History Relationship Description Onset Age of this Age Resolved Age Notes LastModified by Organization Details LastModified Time Sister Asthma Not available 09/21/2019 09:04:16 Sister Diabetes mellitus [email or web address] Not available 09/20 09:04:31 Sister Heart disease [email or web address] Not available 09/20 09:04:39 Sister Hypertensive disorder [email or web address] Not available 09/20 09:04:48 Father Hypertensive disorder [email or web address] Not available 09/20 12:44:17 Notes:Sister: Hypertension, Heart disease, Diabetes mellitus, Asthma Medical History Condition Response Allergies (Food, seasonal, environmental ) N Other N Drug/Latex Allergies/Reactions N Blood Transfusion N Breast Cancer N Dermatologic Disorders N Lung Disease N Defects or Inherited Disease N Breast Problem N Gestational Diabetes N Hematologic disorders N Anesthesia Complications N History of STI N Deep Vein Thrombosis N Polycystic ovary syndrome N Anxiety Disorder Y Autoimmune disease N Arthritis N Polyps N Infertility N Acid Reflux (GERD) N History of abnormal pap N Cancer N Varicosities N Stroke N Neurologic/Epilepsy Y Endometriosis N High Cholesterol N Fibromyalgia N Headaches Y Kidney Disease Y Heart Problems N Thyroid Problems N Kidney or Bladder Problems Y GI Problems Y Eating Disorder N Anemia N Art (IVF or FET) N Psychiatric Illness N Ovarian Cancer N Diabetes N Pulmonary (TB, Asthma) N Hepatitis/Liver Disease N No Past Medical History N Eczema N Urinary Tract Infection N Abuse/Domestic Violence N Asthma N Trauma/Violence N Depression/ depression Y Heart Disease N Pre-Eclampsia N Hypertension N Osteoporosis N Thrombophilias N Gynecological History Statement/Question Response Flow Moderate Date of Last Mammogram Date of LMP N On BCP's at Conception? N STIs/STDs N Was last menstrual period normal N HPV Vaccine N Duration of Flow (days) 5 Current Control Method Implant Age at First Child 24 Are cycles usually normal N Date of Last Colonoscopy Most Recent Bone Density Sexually Active? Y Menses Monthly N Date of DEXA bone scan Date of Last Pap Smear 03/16/2023 Sexual Problems? N LMP Unknown Desired Control Method N Obstetrics History GPAL:G 3 P 3 0 0 3 Type Value Full Term 3 Living 3 Total 3 Past Encounters Encounter ID Performer Location Encounter Start Date Encounter Closed Date Diagnosis/Indication Diagnosis SNOMED-CT Code Diagnosis ICD10 Code Diagnosis IMO Codes Diagnosis Note [id number] [facility] [address],[place] [address] 09/21/2019 11:02:51 09/21/2019 14:09:10 Routine care 651169845 Z34.93 [id number] Renny Pedersen MD [facility] [address],[place] [address] 09/21/2019 11:04:30 09/21/2019 13:37:39 Uterine size for dates discrepancy 269658161 O26.849 [id number] Rossy Ernst [facility] [address],[place] [address] 10/02/2019 10:42:05 10/02/2019 11:40:38 Routine care 077488142 Z34.93 [id number] Rossy Ernst [facility] [address],[place] [address] 10/16/2019 10:59:28 10/16/2019 12:34:49 Routine care 996224615 Z34.93 [id number] Rossy Ernst [facility] [address],[place] [address] 10/24/2019 11:02:43 10/24/2019 12:30:23 Routine care 938737725 Z34.93 [id number] Rossy Ernst [facility] [address] [place] [address] 10/24/2019 12:00:29 10/24/2019 12:36:40 Threatened premature labor - not delivered 940239280 O47.9 [id number] Rossy Ernst [facility] [address],[place] [address] 10/30/2019 10:59:31 10/30/2019 13:35:20 Routine care 140302684 Z34.93 [id number] Rossy Ernst [facility] [address],[place] [address] 10/30/2019 11:16:34 10/30/2019 13:06:00 condition affecting obstetrical care of mother 568897619 O36.8130 [id number] Rossy Ernst [facility] [address],[place] [address] 11/02/2019 16:28:43 11/14/2019 14:30:36 Routine care 224692313 Z34.93 [id number] Rossy Ernst [facility] [address],[place] [address] 11/06/2019 11:36:51 11/06/2019 16:57:52 Routine care 971215630 Z34.93 [id number] Rossy Ernst [facility] [address],[place] [address] 12/07/2019 15:46:07 12/11/2019 15:20:16 Anxiety 43929891 F41.9 reviewed medication se including nausea, tavarez, change in mood. If any suicidal thought pt to Ed immediatel y, will suggest counseling as well, take 1/2 tab daily x 1 week then 1 tab daily, call if any questions Migraine 19154019 G43.90 9 PRN migraine treatment Surveillan ce of oral contraception 406796983 Z30.41 start Tuesday, give one month to be effective as bcm, reviewed risk of mi, stroke, blood clots, consent signed. pt has previously taken ocp w/o complicati on care 20918364 8 Z39.2 [id number] Renny Pedersen MD [facility] [address],[place] [address] 03/24/2020 13:56:27 03/24/2020 15:30:09 Uncertain viability of 360890933 O36.80X0 Z3A.01 [id number] Rossy Ernst [facility] [address],[place] [address] 04/19/2020 11:11:33 04/19/2020 12:54:27 Amenorrhea 60405166 N91.2 [id number] Rossy Ernst [facility] [address],[place] [address] 05/07/2020 16:02:50 05/14/2020 09:26:03 [id number] Renny Pedersen MD [facility] [address],[place] [address] 05/07/2020 16:03:34 05/07/2020 16:41:48 screening 639890031 Z36.82 [id number] Rossy Ernst [facility] [address],[place] [address] 05/09/2020 09:55:04 05/09/2020 11:15:44 test positive 835902928 Z32.01 [id number] Rossy Ernst [facility] [address],[place] [address] 05/14/2020 15:09:00 05/14/2020 17:41:20 Routine care 531936183 Z34.93 [id number] Rossy Ernst [facility] [address],[place] [address] 06/06/2020 12:30:31 06/06/2020 14:29:19 Routine care 852454183 Z34.93 [id number] Frida Yates MD [facility] [address],[place] [address] 06/24/2020 15:01:25 06/24/2020 17:14:06 Migraine 09011564 G43.909 Routine an tenatal care 718023838 Z34.82 [id number] Frida Yates MD [facility] [address],[place] [address] 06/24/2020 15:02:29 06/25/2020 15:21:28 screening for malformation 561409407 Z36.3 [id number] Rossy Ernst [facility] [address],[place] [address] 07/25/2020 16:29:15 07/25/2020 17:08:36 Routine care 288150075 Z34.93 [id number] Julissa Delgado [facility] [address],[place] [address] 08/27/2020 14:30:07 08/27/2020 16:20:57 Routine care 511822693 Z34.93 [id number] Rossy Ernst [facility] [address],[place] [address] 09/03/2020 11:14:18 09/03/2020 12:35:01 Routine care 165628760 Z34.93 [id number] Renny Pedersen MD [facility] [address],[place] [address] 09/03/2020 11:14:02 09/03/2020 11:37:47 Uterine size for dates discrepancy 931975487 O26.843 Z3A.29 [id number] Rossy Ernst [facility] [address],[place] [address] 09/17/2020 18:12:46 09/18/2020 17:20:59 Routine care 706088400 Z34.93 [id number] Rossy Ernst [facility] [address],[place] [address] 09/24/2020 15:15:53 09/24/2020 16:09:35 Routine care 398056509 Z34.93 [id number] Renny Pedersen MD [facility] [address],[place] [address] 09/24/2020 15:15:32 09/24/2020 15:39:00 Excessive growth affecting management of mother 12837391 O36.63X0 Z3A.32 [id number] Frida Yates MD [facility] [address],[place] [address] 10/10/2020 11:06:09 10/10/2020 11:29:03 Routine care 507269819 Z34.82 [id number] Frida Yates MD [facility] [address],[place] [address] 10/15/2020 10:06:17 10/15/2020 10:34:26 Excessive growth affecting management of mother 39789436 O36.63X0 Z3A.35 [id number] Frida Yates MD [facility] [address],[place] [address] 10/15/2020 10:06:34 10/15/2020 11:01:16 Routine care 155425487 Z34.82 [id number] Rossy Ernst [facility] [address],[place] [address] 10/22/2020 15:10:50 10/22/2020 16:01:44 Candidiasis of vagina 74862606 B37.3 Routine an tenatal care 975546804 Z34.93 [id number] [facility] [address],[place] [address] 10/30/2020 13:01:50 10/30/2020 13:40:09 Routine care 284523169 Z34.93 [id number] [facility] [address],[place] [address] 11/28/2020 12:55:38 11/28/2020 13:49:28 depression 03985252 F53.0 Nausea 143714777 R11.0 Implantati on of subcutaneous contraceptive 917126958 Z30.9 [id number] Rossy Ernst CN[facility] [address] [place] [address] 12/24/2020 18:29:49 12/25/2020 14:36:11 Anxiety 92760327 F41.9 resolved, call if needed test positive 280041342 Z32.01 negative her in office, order blood work, has nexplanon in place [id number] Rossy Ernst CN[facility] [address],[place] [address] 08/13/2021 12:26:11 08/14/2021 16:30:03 Anxiety 45616578 F41.9 reviewed se risks if any suicidal thoughts to ed f/u 4-6 weeks Urinary tr act infectious disease 62904288 N39.0 if jennifer remains will plan us Irregular periods 660636 07 N92.6 nextellis samples, cont nexplanon reviewed se including blood clots Fatigue 75900728 R53.83 check labs [id number] Rossy Ernst CNM [facility] [address],[place] [address] 09/25/2021 14:18:02 09/25/2021 15:04:33 Anxiety 59889584 F41.9 continue wellbutrin , xanax 0.5mg #20 prn, discussed prn use only, addictive in nature, until sees psychiatry for medication rec, f/u 3 mo med check, if any suicidal thoughts to ED [id number] HAILE Alfred [facility] [address],[place] [address] 01/05/2022 10:44:53 01/05/2022 11:36:39 Urinary symptoms 640895820 R39.9 Vaginitis 65262870 N76.0 Suspect possible contact dermatitis /irritatio n of the vulva from using vaginal wash and new laundry products. No abnormal vaginal discharge noted.Vulv ar care guidelines discussed in-depth-O nly water/fing ers to cleanse the vulva-Cott on underwear only, sleep without underwear- Free and clear laundry detergent, no fabric softener's -Avoid shaving/wa sae for nowRx for nystatin/t riamcinolo ne - twice daily to vulvar for 7 daysVagini tis panel sentSTI endocervic al testing sentUA today with 2+ leuks and trace bloodCultu re sentWe discussed treatment for UTI now vs waiting for culture. She would like to wait for culture given urinary symptoms only happened a few times and is not currently having any urinary symptoms.S he has labs ordered from [facility], encouraged her to have these done todayTo schedule her WWE as she is due Time spent in visit is a total of 30 mins with at least 50% of visit consisting of counseling and review of plan of care. Venereal d isease screening 797003128 Z11.3 [id number] [facility] [address],[place] [address] 02/05/2022 16:09:23 02/08/2022 17:09:14 Gynecologic examination 28455723 Z01.419 Z11.3 Anxiety 63010028 F41.9 continue wellbutrin , xanax 0.5mg #20 prn, discussed prn use only, addictive in nature, until sees psychiatry for medication rec, f/u 3 mo med check, if any suicidal thoughts to ED [id number] Tara Truong [facility] [address],[place] [address] 11/06/2022 11:14:46 11/08/2022 11:28:05 Removal of subcutaneous contraceptive 899043212 Z30.46 Removal site was cleansed with betadine and 3cc of lidocaine used for anesthesia . Device was removed in normal fashion without difficulty . Steri stips and pressure bandage place.RTO if no menses within 3-4mos. [id number] Renny Pedersen MD [facility] [address],[place] [address] 03/01/2023 17:04:55 03/01/2023 17:39:33 screening 114669215 Z36.87 [id number] Renny Pedersen MD [facility] [address],[place] [address] 03/10/2023 13:33:43 03/10/2023 14:04:33 Threatened miscarriage 70717114 O20.0 Z3A.01 [id number] Renny Pedersen MD [facility] [address],[place] [address] 03/16/2023 16:50:25 03/16/2023 17:07:28 [id number] [facility] [address] [place] [address] 03/16/2023 16:50:44 03/16/2023 18:25:35 Amenorrhea 15698332 N91.2 reviewed office precaution s and folderhx migraines has been talk ing with dr. lenore pedersen rec trying exedrin, benadryl/r eglan, fioricet, and if really needed one dose of imitrexf/u new ob and first look at 12 weekscomin g in at 10 for blood workaware of subchorion ic hemorrhage precaution s reviewed [id number] Renny Pedersen MD [facility] [address],[place] [address] 04/08/2023 15:47:53 04/23/2023 04:00:04 [id number] Z33.1 [id number] Renny Pedersen MD [facility] [address],[place] [address] 04/15/2023 12:04:56 04/15/2023 12:57:29 screening 651272103 Z36.82 Z3A.12 [id number] Rossy Ernst [facility] [address],[place] [address] 04/15/2023 12:05:16 04/15/2023 13:08:21 Gestation period, 12 weeks 01899911 Z3A.12 [id number] Renny Pedersen MD [facility] [address],[place] [address] 04/27/2023 14:59:34 04/27/2023 15:34:27 Threatened miscarriage 90551409 O20.0 O36.8910 Z3A.13 [id number] Rossy Ernst [facility] [address],[place] [address] 04/27/2023 14:59:52 04/27/2023 16:11:27 Routine care 057396162 Z34.93 [id number] Renny Pedersen MD [facility] [address],[place] [address] 05/25/2023 16:34:23 05/26/2023 08:36:55 screening for malformation 477445439 Z36.3 [id number] [facility] [address],[place] [address] 05/25/2023 16:34:48 05/25/2023 18:34:58 Routine care 375152351 Z34.93 [id number] Renny Pedersen MD [facility] [address],[place] [address] 06/09/2023 10:44:12 06/09/2023 11:26:24 Abdominal pain in 298361504 O99.891 Z3A.20 [id number] [facility] [address],[place] [address] 06/22/2023 17:09:02 06/23/2023 14:15:53 Routine care 717443836 Z34.93 [id number] Renny Pedersen MD [facility] [address],[place] [address] 06/22/2023 17:08:22 06/23/2023 12:44:34 Placenta previa without hemorrhage 8149060 O44.42 Z36.2 Z3A.21 [id number] Renny Pedersen MD [facility] [address],[place] [address] 07/20/2023 17:15:37 07/20/2023 18:11:41 Placenta circumvallata 2919129 O43.112 Z3A.25 [id number] [facility] [address],[place] [address] 07/20/2023 17:15:59 07/20/2023 18:33:09 Routine care 081901191 Z34.93 [id number] [facility] [address],[place] [address] 2023 12:11:38 2023 12:47:48 Routine care 087335844 Z34.93 Urinary tr act infectious disease 66088855 N39.0 if jennifer remains will plan us Yeast detected 511722026 R89.5 [id number] Renny Pedersen MD [facility] [address],[place] [address] 08/17/2023 16:55:20 08/17/2023 17:56:23 Placenta circumvallata 0904502 O43.112 Z3A.29 [id number] [facility] [address],[place] [address] 08/17/2023 16:55:39 08/18/2023 09:52:04 Routine care 755939223 Z34.93 [id number] Renny Pedersen MD [facility] [address],[place] [address] 09/13/2023 15:15:42 09/13/2023 16:51:48 Placenta circumvallata 1216864 O43.113 Z3A.33 [id number] Rossy Ernst [facility] [address],[place] [address] 09/14/2023 15:54:25 09/14/2023 16:22:25 Routine care 853605805 Z34.93 [id number] Rossy Ernst [facility] [address],[place] [address] 09/28/2023 15:13:29 09/28/2023 15:52:13 Routine care 168172389 Z34.93 [id number] JANAY DIOR MD [facility] [address],[place] [address] 10/05/2023 15:13:49 10/05/2023 15:55:42 Pre-eclampsia 724704074 O14.93 [id number] Renny Pedersen MD [facility] [address],[place] [address] 10/05/2023 15:14:43 10/05/2023 16:18:00 -induced hypertension 21132409 O13.9 [id number] [facility] [address],[place] [address] 10/05/2023 15:15:13 10/05/2023 16:40:44 Routine care 378953651 Z34.93 - induced hypertension 54770177 O13.9 Urinary tr act infectious disease 84039003 N39.0 [id number] [facility] [address],[place] [address] 10/21/2023 15:46:28 10/21/2023 16:05:47 Past history of pre-eclampsia 5676511007 56254 Z87.59 send to [facility] for immediate evaluation orders called to hospital Blood pres sure above reference range [id number] R03.0 [id number] [facility] [address],[place] [address] 10/28/2023 12:12:11 10/28/2023 13:24:21 anxiety [id number] O99.345 discussed hydroxyzin e. non habit forming can take up to 3 x a dayif worsens or thoughts of suicide to ED Past pregn sahara history of pre-eclampsia [id number] 82033 Z87.59 labs today, increase labetalol to 300mg BID RN BP check next weekprecau tions reviewed Blood pres sure above reference range [id number] R03.0 care [id number] 8 Z39.2 Contracept ion care management [id number] Z30.9 Implantati on of subcutaneous contraceptive 109198015 Z30.9 tremaine well f/u wwe Migraine [id number] G43.90 [id number] Renny Pedersen MD [facility] [address],[place] [address] 11/04/2023 15:51:29 11/04/2023 16:03:06 [id number] HAILE Alfred [facility] [address],[place] [address] 10/26/2024 10:15:30 10/26/2024 12:25:38 Gynecologic examination [id number] Z01.703 [id number] Pap updated, gc/ct/tric h testing added to pap Venereal d isease screening [id number] Z11.3 33442 Sexually t ransmitted infectious disease 7123126 A64 Lesion of vulva 34149743 6 N90.89 [id number] 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 Reviewed ways to limit exposure and prevention techniques . Time spent in visit is a total of 30 mins with at least 50% of visit consisting of counseling and review of plan of care. Health Concerns Section Related Observation LastModified by Organization Detai ls LastModified Time None Recorded Concern Status LastModified by Organization Details LastModified Time None Recorded Advance Directives Directive N: Payers Insurance Date Sequence Insurance Name Policy Number Policy Wilson Covered Member ID Wilson Member ID Guarantor Name 01/21/2022 1 [facility] PRIOR TO 11/27/2020 (MEDICAID REPLACEMENT - HMO) Cullen Frias [id number] Cullen Frias 04/19/2020 *SELF PAY* Jt Frias 03/05/2025 1 [facility] ON OR AFTER 11/27/20 (MEDICAID REPLACEMENT - HMO) Cullen Frias [id number] Cullen Frias Notes Date Note Type Note Provider Name and Address Organization Details Recorded Time 4 text/html OB ProblemReported by Patient Estela bates, [facility] 10/05/2023 16:16:47 4 text/html Generic HPI TemplateReported by Patient Rossy Ernst CNM [address], [place], [address], [facility] 10/05/2023 16:28:56 4 text/html ROS as noted in the HPI pp f/u elevated bp at home, migraine, not as bad as usual, history of migraines, swelling resolved, denies visual changes, epigastric pain delivered baby girl vaginally on 10/06 Rossy Ernst CNM [address], [place], [address], [facility] 10/21/2023 16:04:39 4 text/html VisitReported by PatientHPIFor associated symptoms, patient reportsbaby bluesbut reportsno abnormal bleeding,no vaginal discharge,no pelvic pain,no constipation,no fecal incontinence,no dysuria,no urinary incontinence, andno fever(more anxiety, quick to anger, like after of her daughterat that time alprazolam for prn anxiety). For quality, patient reportsnsvd. For context, patient reportscomplications of : pre-eclampsia,complicatio ns of labor: pre-eclampsia,laceration: __, complications: pre-eclampsia,feeding choice: bottle,good support from partner/family, andresumed menstrual bleeding no. For contraception plan, patient reportscontraceptive implant.has not been sexually active, would like nexaplanon today, back pain and still migraines and neck painROS as noted in the HPI Rossy Ernst CNM [address], [place], [address], [facility] 10/28/2023 13:02:17 5 text/html 29yopresents for vulvar lesionsnoticed 3-4 days agoblister like lesion on vulva, tender to touch, painful if clothing touches or when sittingno new partners, has noticed that her partner will sometimes have a singular lesion on his genitalia that comes and goes neg d/c, odors, itchingneg pelvic pain HAILE Alfred [address], [place], [address], [facility] 10/26/2024 11:42:19 OBGyn Episode Ob Episode Information Episode Created Date Number of Fetuses Patient Bloodtype Patient rh Status Prepregnancy Weight lbs Domestic Partner Domestic Partner Phone Father Name Burning Plant Operator Status 09/21/19 20 1 O Negative 187 CLOSED Fetus Data First Name Last Name Admitted to NICU Weight (g) Sex Living Outcome Pediatric Complications Fetus ID Race Codes Race Delivery Type 3600.38 65 M true Full Term 790 Vaginal Delivery Jose Calculation Initial Jose Date Initial Exam Date Initial Exam Provider Initial Ultrasound Date Last Menstrual Period Date Ultra Sound Weeks Gestation 11/16/2019 09/21/2019 05/08/2019 02/16/2019 12 Eighteen To Twenty Week Jose Update Ultra Sound Date Fundal Height At Umbil Quickening Date Ultra Sound Latest Weeks Gestation Final Jose Confirmed By Final Jose Confirmed Date Final Jose Date Ultra Sound Latest Days Gestation 0 [email or web address] 09/21/2019 11/13/19 20 0 Pre- Flowsheet Flowsheet Date 09/21/2019 Barrera Score Blood Edema Fundus Height Fundus Units Glucose Ketones Leukocytes Nitrite Labor Signs Protein Cervic Dilation Cervic Effacement Cervic Station neg trace trace Type Weight in lbs Pre/Post Dialysis Refused Weight 193.85060824807 BP Diastolic BP Location Tested BP Systolic BP Type 86 122 Fetus Heart Rate Present Fetus Movement A Yes Comments patient states that having s welling in feet, passing pieces of kidney stones, abdominal pain, contractions, cramping, discharge, nausea and headaches, and trouble breathing, growth 68%, pih labs for baseline 1+ pitting edema right ankle, py says it was worse yesterday occ nausea and tavarez, plan urine culture and kidney us, precautions given for follow up Flowsheet Date 10/02/2019 Barrera Score Blood Edema Fundus Height Fundus Units Glucose Ketones Leukocytes Nitrite Labor Signs Protein Cervic Dilation Cervic Effacement Cervic Station neg trace 34 trace Type Weight in lbs Pre/Post Dialysis Refused Weight 194.775809078650 BP Diastolic BP Location Tested BP Systolic BP Type 85 129 Fetus Heart Rate Present A 145 Present Fetus Movement A Yes Comments patient states that having l ow back / left side abdominal pain, swelling, headaches, nausea and swelling, PIH precautions, baseline labs Flowsheet Date 10/16/2019 Barrera Score Blood Edema Fundus Height Fundus Units Glucose Ketones Leukocytes Nitrite Labor Signs Protein Cervic Dilation Cervic Effacement Cervic Station neg trace 36 trace Type Weight in lbs Pre/Post Dialysis Refused Weight 197.727349710022 BP Diastolic BP Location Tested BP Systolic BP Type 82 128 Fetus Heart Rate Present A 155 Fetus Movement A Yes Comments patient states that having l eft side pain, contractions, discharge, nausea and swelling, gbs done today, reviewed Flowsheet Date 10/24/2019 Barrera Score Blood Edema Fundus Height Fundus Units Glucose Ketones Leukocytes Nitrite Labor Signs Protein Cervic Dilation Cervic Effacement Cervic Station neg trace 36 trace 1cm 50% -3 Type Weight in lbs Pre/Post Dialysis Refused Weight 198.477021792673 BP Diastolic BP Location Tested BP Systolic BP Type 89 129 Fetus Heart Rate Present Fetus Movement A Yes Comments patient is having painful cr amping, discharge, swelling, and nausea, nst irreg contraction pattern, GBS negative, labor precautions Flowsheet Date 10/24/2019 Barrera Score Blood Edema Fundus Height Fundus Units Glucose Ketones Leukocytes Nitrite Labor Signs Protein Cervic Dilation Cervic Effacement Cervic Station Type Weight in lbs Pre/Post Dialysis Refused BP Diastolic BP Location Tested BP Systolic BP Type Fetus Heart Rate Present Fetus Movement Comments Flowsheet Date 10/30/2019 Barrera Score Blood Edema Fundus Height Fundus Units Glucose Ketones Leukocytes Nitrite Labor Signs Protein Cervic Dilation Cervic Effacement Cervic Station neg trace trace 1cm 50% -3 Type Weight in lbs Pre/Post Dialysis Refused Weight 200.588505459981 BP Diastolic BP Location Tested BP Systolic BP Type 86 129 Fetus Heart Rate Present Fetus Movement A Decreased Comments patient states that has pain ful swelling, cramping, contractions, discharge and nausea, decreased movement, NST reactive increased swelling some dizzy spells, tavarez resolves with fioricet, PIH precautions reviewed Flowsheet Date 10/30/2019 Barrera Score Blood Edema Fundus Height Fundus Units Glucose Ketones Leukocytes Nitrite Labor Signs Protein Cervic Dilation Cervic Effacement Cervic Station Type Weight in lbs Pre/Post Dialysis Refused BP Diastolic BP Location Tested BP Systolic BP Type Fetus Heart Rate Present Fetus Movement Comments Flowsheet Date 11/02/2019 Barrera Score Blood Edema Fundus Height Fundus Units Glucose Ketones Leukocytes Nitrite Labor Signs Protein Cervic Dilation Cervic Effacement Cervic Station neg trace trace Type Weight in lbs Pre/Post Dialysis Refused Weight 201.925955948752 BP Diastolic BP Location Tested BP Systolic BP Type 88 131 Fetus Heart Rate Present A 155 Fetus Movement A Yes Comments patient states that having h eadaches, selling, cramping, contractions, some vision changes, discharge, and nausea, bp wnl f/u next tuesday Flowsheet Date 11/06/2019 Barrera Score Blood Edema Fundus Height Fundus Units Glucose Ketones Leukocytes Nitrite Labor Signs Protein Cervic Dilation Cervic Effacement Cervic Station neg trace trace Type Weight in lbs Pre/Post Dialysis Refused Weight 201.929268411082 BP Diastolic BP Location Tested BP Systolic BP Type 89 133 Fetus Heart Rate Present Fetus Movement A Yes Comments patient is having some BH co ntractions, discharge, swelling, and nausea, would like an elective induction, BF having hard time with work and he is her support reviewed cervadil and pitocin reviewed increased risk of c/s associated with MIL, pt agrees and will go in this evening Flowsheet Date 12/07/2019 Barrera Score Blood Edema Fundus Height Fundus Units Glucose Ketones Leukocytes Nitrite Labor Signs Protein Cervic Dilation Cervic Effacement Cervic Station Type Weight in lbs Pre/Post Dialysis Refused Weight 171.916485592348 BP Diastolic BP Location Tested BP Systolic BP Type 86 127 Fetus Heart Rate Present Fetus Movement Comments Flowsheet Date 03/24/2020 Barrera Score Blood Edema Fundus Height Fundus Units Glucose Ketones Leukocytes Nitrite Labor Signs Protein Cervic Dilation Cervic Effacement Cervic Station Type Weight in lbs Pre/Post Dialysis Refused BP Diastolic BP Location Tested BP Systolic BP Type Fetus Heart Rate Present Fetus Movement Comments Flowsheet Date 04/19/2020 Barrera Score Blood Edema Fundus Height Fundus Units Glucose Ketones Leukocytes Nitrite Labor Signs Protein Cervic Dilation Cervic Effacement Cervic Station Type Weight in lbs Pre/Post Dialysis Refused Weight 173.802669851760 BP Diastolic BP Location Tested BP Systolic BP Type 84 127 Fetus Heart Rate Present Fetus Movement Comments Menstrual History Last Menstrual Date Menses Monthly On Bcp Conception Prior Menses Frequency Hcg Plus Date Menarche Onset Age 0902/16/2019 true Delivery Information Delivery Date Delivery Type Labor Anesthesia Weeks Gestation Incision Type Labor Labor Length Hrs Delivered By Post Complications Tubal Sterilization Discharge Date Comments 0 39.2 Discharge Information Feeding Method Contraceptive Method Maternal HG B and HCT Levels Ob Episode Information Episode Created Date Number of Fetuses Patient Bloodtype Patient rh Status Prepregnancy Weight lbs Domestic Partner Domestic Partner Phone Father Name Burning Plant Operator Status 11/26/19 20 1 DELETED Jose Calculation Initial Jose Date Initial Exam Date Initial Exam Provider Initial Ultrasound Date Last Menstrual Period Date Ultra Sound Weeks Gestation 0 Eighteen To Twenty Week Jose Update Ultra Sound Date Fundal Height At Umbil Quickening Date Ultra Sound Latest Weeks Gestation Final Joes Confirmed By Final Jose Confirmed Date Final Jose Date Ultra Sound Latest Days Gestation 0 0 Menstrual History Last Menstrual Date Menses Monthly On Bcp Conception Prior Menses Frequency Hcg Plus Date Menarche Onset Age Delivery Information Delivery Date Delivery Type Labor Anesthesia Weeks Gestation Incision Type Labor Labor Length Hrs Delivered By Post Complications Tubal Sterilization Discharge Date Comments 0 39 Discharge Information Feeding Method Contraceptive Method Maternal HG B and HCT Levels Ob Episode Information Episode Created Date Number of Fetuses Patient Bloodtype Patient rh Status Prepregnancy Weight lbs Domestic Partner Domestic Partner Phone Father Name Burning Plant Operator Status 05/07/20 20 1 O Negative 173 emerita CLOSED Fetus Data First Name Last Name Admitted to NICU Weight (g) Sex Living Outcome Pediatric Complications Fetus ID Race Codes Race Delivery Type 3486.98 85 F true Full Term [id number] Vaginal Delivery Problems Problem Notes CF/SMA neg in 09/24 per SP BS normal pt will stop checking BS Problem Name Start Date End Date Resolution Snomed Code Not e COVID-19 06/09/2020 [id number] second tr imester Migraine 11/05/2019 [id number] fioricet, discussed risks Jose Calculation Initial Jose Date Initial Exam Date Initial Exam Provider Initial Ultrasound Date Last Menstrual Period Date Ultra Sound Weeks Gestation 11/13/2020 03/24/2020 03/24/2020 02/07/2020 6 Eighteen To Twenty Week Jose Update Ultra Sound Date Fundal Height At Umbil Quickening Date Ultra Sound Latest Weeks Gestation Final Jose Confirmed By Final Jose Confirmed Date Final Jose Date Ultra Sound Latest Days Gestation 0 11/14/19 21 0 Pre- Flowsheet Flowsheet Date 05/07/2020 Barrera Score Blood Edema Fundus Height Fundus Units Glucose Ketones Leukocytes Nitrite Labor Signs Protein Cervic Dilation Cervic Effacement Cervic Station Type Weight in lbs Pre/Post Dialysis Refused Weight 178.331130768701 BP Diastolic BP Location Tested BP Systolic BP Type 85 125 Fetus Heart Rate Present Fetus Movement Comments Flowsheet Date 05/09/2020 Barrera Score Blood Edema Fundus Height Fundus Units Glucose Ketones Leukocytes Nitrite Labor Signs Protein Cervic Dilation Cervic Effacement Cervic Station neg none trace Type Weight in lbs Pre/Post Dialysis Refused Weight 175.202090228844 BP Diastolic BP Location Tested BP Systolic BP Type 81 119 Fetus Heart Rate Present Fetus Movement A Yes Comments patient is has some side jennifer n, discharge, nausea and vomiting / UDS +THC/ us done here, genetics today, us zone shows femalehx of hernia surgery with mesh repair and kidney reflux. last uncomplicated, migraine history Flowsheet Date 05/14/2020 Barrera Score Blood Edema Fundus Height Fundus Units Glucose Ketones Leukocytes Nitrite Labor Signs Protein Cervic Dilation Cervic Effacement Cervic Station neg none trace Type Weight in lbs Pre/Post Dialysis Refused Weight 178.859223956098 BP Diastolic BP Location Tested BP Systolic BP Type 85 133 Fetus Heart Rate Present Fetus Movement A No Comments OB problem patient is having pelvic pain, pressure and back pain, pain more on right, can barely get any urine out, us looked and seems like there is a stone in front of bladder, sent to ED Flowsheet Date 06/06/2020 Barrera Score Blood Edema Fundus Height Fundus Units Glucose Ketones Leukocytes Nitrite Labor Signs Protein Cervic Dilation Cervic Effacement Cervic Station neg none trace Type Weight in lbs Pre/Post Dialysis Refused Weight 173.910173892143 BP Diastolic BP Location Tested BP Systolic BP Type 84 129 Fetus Heart Rate Present A 143 Fetus Movement A Yes Comments patient states that having s ome discharge, nausea and vomiting precautions reviewed, plan anatomy next visit Flowsheet Date 06/24/2020 Barrera Score Blood Edema Fundus Height Fundus Units Glucose Ketones Leukocytes Nitrite Labor Signs Protein Cervic Dilation Cervic Effacement Cervic Station Type Weight in lbs Pre/Post Dialysis Refused BP Diastolic BP Location Tested BP Systolic BP Type Fetus Heart Rate Present Fetus Movement Comments Flowsheet Date 06/24/2020 Barrera Score Blood Edema Fundus Height Fundus Units Glucose Ketones Leukocytes Nitrite Labor Signs Protein Cervic Dilation Cervic Effacement Cervic Station neg none trace Type Weight in lbs Pre/Post Dialysis Refused Weight 175.599293715220 BP Diastolic BP Location Tested BP Systolic BP Type 82 117 Fetus Heart Rate Present A 155 Fetus Movement A Yes Comments Doing very well except for H A. Has migraines outside of . Will go weeks now without one, but then will have a bad week with them most of the week. Needs fioricet refill. Discussed risks, goal to use sparingly, stay hydrated, try tylenol first. Anatomy US today complete and wnl, discussed. Declines AFP since normal spine/brain on US. Had COVID earlier this month, mild, no residual sx. Flowsheet Date 07/25/2020 Barrera Score Blood Edema Fundus Height Fundus Units Glucose Ketones Leukocytes Nitrite Labor Signs Protein Cervic Dilation Cervic Effacement Cervic Station neg none 22 trace Type Weight in lbs Pre/Post Dialysis Refused Weight 179.104309103611 BP Diastolic BP Location Tested BP Systolic BP Type 83 134 Fetus Heart Rate Present A 146 Fetus Movement A Yes Comments patient is having pelvic jennifer n and discharge, maternity belt ordered, precautions reviewed lab order given for labs and rhogam at [place] at 28 weeks f/u 4 weeks Flowsheet Date 08/27/2020 Barrera Score Blood Edema Fundus Height Fundus Units Glucose Ketones Leukocytes Nitrite Labor Signs Protein Cervic Dilation Cervic Effacement Cervic Station neg none 29 trace Type Weight in lbs Pre/Post Dialysis Refused Weight 183.515967884758 BP Diastolic BP Location Tested BP Systolic BP Type 79 109 Fetus Heart Rate Present A 143 Fetus Movement A Yes Comments Pt had elective u/s at [place] [facility] and baby measured 2 weeks ahead. Pt does have f/u u/s scheduled her on 09-03. Will assess at that time. Pt is going today for gtt and rhogam. Occasional constipation. Sent out colace. Discussed relief measures. Flowsheet Date 09/03/2020 Barrera Score Blood Edema Fundus Height Fundus Units Glucose Ketones Leukocytes Nitrite Labor Signs Protein Cervic Dilation Cervic Effacement Cervic Station Type Weight in lbs Pre/Post Dialysis Refused BP Diastolic BP Location Tested BP Systolic BP Type Fetus Heart Rate Present Fetus Movement Comments Flowsheet Date 09/03/2020 Barrera Score Blood Edema Fundus Height Fundus Units Glucose Ketones Leukocytes Nitrite Labor Signs Protein Cervic Dilation Cervic Effacement Cervic Station neg none trace Type Weight in lbs Pre/Post Dialysis Refused Weight 186.449426358567 BP Diastolic BP Location Tested BP Systolic BP Type 87 138 Fetus Heart Rate Present Fetus Movement A Yes Comments PATIENT STATES THAT HAVING B H CONTRACTIONS, BACK PAIN, RIGHT SIDE PELVIC/ABDOMINAL PAIN, DISCHARGE AND NAUSEA, efw 91% passed gct will check blood sugars x 2 weeks f/u 4 weeks growth, reviewed precautions Flowsheet Date 09/17/2020 Barrera Score Blood Edema Fundus Height Fundus Units Glucose Ketones Leukocytes Nitrite Labor Signs Protein Cervic Dilation Cervic Effacement Cervic Station neg none 32 trace Type Weight in lbs Pre/Post Dialysis Refused Weight 187.293752051053 BP Diastolic BP Location Tested BP Systolic BP Type 82 120 Fetus Heart Rate Present A 155 Fetus Movement A Yes Comments PATIENT IS HAVING MIGRAINES, CONTRACTIONS, DISCHARGE AND NAUSEA, plan growth us for follow up on LGA, reviewed precautions, blood sugars all wnl, not GDM Flowsheet Date 09/24/2020 Barrera Score Blood Edema Fundus Height Fundus Units Glucose Ketones Leukocytes Nitrite Labor Signs Protein Cervic Dilation Cervic Effacement Cervic Station Type Weight in lbs Pre/Post Dialysis Refused BP Diastolic BP Location Tested BP Systolic BP Type Fetus Heart Rate Present Fetus Movement Comments Flowsheet Date 09/24/2020 Barrera Score Blood Edema Fundus Height Fundus Units Glucose Ketones Leukocytes Nitrite Labor Signs Protein Cervic Dilation Cervic Effacement Cervic Station neg none trace Type Weight in lbs Pre/Post Dialysis Refused Weight 188.917866997117 BP Diastolic BP Location Tested BP Systolic BP Type 83 118 Fetus Heart Rate Present Fetus Movement A Yes Comments PATIENT STATES THAT HAVING H EADACHES, PAIN, CONTRACTIONS, DISCHARGE, NAUSEA AND VOMITNG., try flexeril for tavarez, instead of fioricet, but may have fioricet if it doesn't work, ice on neck, stop bs, all wnl, efw 87% Flowsheet Date 10/10/2020 Barrera Score Blood Edema Fundus Height Fundus Units Glucose Ketones Leukocytes Nitrite Labor Signs Protein Cervic Dilation Cervic Effacement Cervic Station neg trace 33 trace Type Weight in lbs Pre/Post Dialysis Refused Weight 191.427293067978 BP Diastolic BP Location Tested BP Systolic BP Type 82 120 Fetus Heart Rate Present A 160 Fetus Movement A Yes Comments Doing well except some left sciatica, comfort measures discussed. needs fioricet refilled. GBS next week. Flowsheet Date 10/15/2020 Barrera Score Blood Edema Fundus Height Fundus Units Glucose Ketones Leukocytes Nitrite Labor Signs Protein Cervic Dilation Cervic Effacement Cervic Station Type Weight in lbs Pre/Post Dialysis Refused BP Diastolic BP Location Tested BP Systolic BP Type Fetus Heart Rate Present Fetus Movement Comments Flowsheet Date 10/15/2020 Barrera Score Blood Edema Fundus Height Fundus Units Glucose Ketones Leukocytes Nitrite Labor Signs Protein Cervic Dilation Cervic Effacement Cervic Station neg trace 36 trace Type Weight in lbs Pre/Post Dialysis Refused Weight 192.005271859580 BP Diastolic BP Location Tested BP Systolic BP Type 85 136 Fetus Heart Rate Present A 135 Fetus Movement A Yes Comments Doing well. Boil on inner th igh, drained, on abx, much better. GBS next week. US today 70% but AC 90%, did discuss risk of shoulder dystocia. Flowsheet Date 10/22/2020 Barrera Score Blood Edema Fundus Height Fundus Units Glucose Ketones Leukocytes Nitrite Labor Signs Protein Cervic Dilation Cervic Effacement Cervic Station neg trace 36 trace Type Weight in lbs Pre/Post Dialysis Refused Weight 195.891049296441 BP Diastolic BP Location Tested BP Systolic BP Type 89 139 Fetus Heart Rate Present Fetus Movement A Yes Comments PATIENT STATES THAT HAVING V AGINAL DISCHARGE, ITCHING, LEFT SIDE PAIN AND SWELLING, + yeast red irriated rx called out, gbs done no cervical exam today, preadmit to schedule, f/u one week, precautions reviewed Flowsheet Date 10/30/2020 Barrera Score Blood Edema Fundus Height Fundus Units Glucose Ketones Leukocytes Nitrite Labor Signs Protein Cervic Dilation Cervic Effacement Cervic Station neg trace trace Type Weight in lbs Pre/Post Dialysis Refused Weight 192.873964464421 BP Diastolic BP Location Tested BP Systolic BP Type 101 148 100 160 Fetus Heart Rate Present Fetus Movement A Yes Comments patient has migraine headach e, nausea, contractions and swelling, pt unable to open eyes while taking pain in head behind right eye hx migraines, bp elevated to ld for further monitoring Menstrual History Last Menstrual Date Menses Monthly On Bcp Conception Prior Menses Frequency Hcg Plus Date Menarche Onset Age 0902/07/2020 true Genetic Screening And Infection History Question Response Note Mental Retardation/Autism false Patient's Age Will Be 35 Yea rs Or Older At Estimated Date of Delivery false Thalassemia (Cape Verdean, Venezuelan, Mediterranean, Or Background): MCV < 80 false Neural Tube Defect (Meningom yelocele, Spina Bifida, Or Anencephaly) false Congenital Heart Defect false Down Syndrome false Anupam-Sachs (eg, Denominational, Cajun, Micronesian-Peruvian) f alse Tong Disease false Sickle Cell Disease Or Trait () false Hemophilia Or Other Blood Disorders false Muscular Dystrophy false Cystic Fibrosis false [place]'s Chorea false Intellectual Disability/Autism false If Yes, Was Person Tested For Fragile X? false Other Inherited Genetic Or Chromosomal Disorder false Maternal Metabolic Disorder (eg, Type 1 Diabetes , PKU) false Patient Or Baby's Father Had A Child With Defects Not Listed Above false Recurrent Loss, Or A Stillbirth false Medications (including Suppl ements, Vitamins, Herbs, OTC Drugs), Illicit/Recreational Drugs, Alcohol true pnv, seter cet If Yes, Agent(s) And Strength/Dosage false Any Other Genetic History true sister diabetes Live With Someone With TB Or Exposed To TB false Patient Or Partner Has History Of Genital Herpes false Rash Or Viral Illness Since Last Menstrual Perio d false History Of STD, Gonorrhea, Chlamydia, HPV, Syphi lis false Other Infection History false History of HIV false History of Hepatitis false Prior GBS-infected child false Hemoglobinopathy Or Carrier false Other Structural Defect false Recent Travel History Outside of Country false Delivery Information Delivery Date Delivery Type Labor Anesthesia Weeks Gestation Incision Type Labor Labor Length Hrs Delivered By Post Complications Tubal Sterilization Discharge Date Comments 1 Sponta neous Regional-Ep idural 38.2 false Klever Rossy CNM [facility] Discharge Information Feeding Method Contraceptive Method Maternal HG B and HCT Levels Ob Episode Information Episode Created Date Number of Fetuses Patient Bloodtype Patient rh Status Prepregnancy Weight lbs Domestic Partner Domestic Partner Phone Father Name Burning Plant Operator Status 04/15/20 23 1 O Negative 183 steadma n robinso n CLOSED Fetus Data First Name Last Name Admitted to NICU Weight (g) Sex Living Outcome Pediatric Complications Fetus ID Race Codes Race Delivery Type [id number] F true Full Term [id number] Vaginal Delivery Problems Problem Notes hx hernia repair with mesh 2 012eye surgery 3kidney reflux surgey 2014unilateral PRINTING PLATE CLERK- neg NIPT, resolvedfrequent UTI- macrobid daily Problem Name Start Date End Date Resolution Snomed Code Not e Low-lying placenta SELFRESOLVED 08696861 [id number] RESOLVED Placenta circumvallata 4514722 serial growth RhD negative [id number] Rhogam 28 wks COVID-19 [id number] serial annabella wth, asa daily -induced hypertension 04247825 2 elevated bloo d pressures, separate hospital visits Jose Calculation Initial Jose Date Initial Exam Date Initial Exam Provider Initial Ultrasound Date Last Menstrual Period Date Ultra Sound Weeks Gestation 10/26/2023 03/10/2023 03/10/2023 7 Eighteen To Twenty Week Jose Update Ultra Sound Date Fundal Height At Umbil Quickening Date Ultra Sound Latest Weeks Gestation Final Jose Confirmed By Final Jose Confirmed Date Final Jose Date Ultra Sound Latest Days Gestation 04/15/20 23 12 [email or web address] 04/27/2023 10/27/19 24 3 Pre- Flowsheet Flowsheet Date 04/15/2023 Barrera Score Blood Edema Fundus Height Fundus Units Glucose Ketones Leukocytes Nitrite Labor Signs Protein Cervic Dilation Cervic Effacement Cervic Station neg none none trace Type Weight in lbs Pre/Post Dialysis Refused Weight 181.940088906562 BP Diastolic BP Location Tested BP Systolic BP Type 80 116 Fetus Heart Rate Present Fetus Movement A No Comments patient is having some cramp ing, nausea and vomiting. migraines, takes fioricet/ exedrin works occasionally, unfused amnion/chorion rpt in 2 weeks, did have spotting but now has stopped, mild crampinghx 2 previous uncomplicated vaginal deliveries Flowsheet Date 04/27/2023 Barrera Score Blood Edema Fundus Height Fundus Units Glucose Ketones Leukocytes Nitrite Labor Signs Protein Cervic Dilation Cervic Effacement Cervic Station Type Weight in lbs Pre/Post Dialysis Refused BP Diastolic BP Location Tested BP Systolic BP Type Fetus Heart Rate Present Fetus Movement Comments Flowsheet Date 04/27/2023 Barrera Score Blood Edema Fundus Height Fundus Units Glucose Ketones Leukocytes Nitrite Labor Signs Protein Cervic Dilation Cervic Effacement Cervic Station trace none none trace Type Weight in lbs Pre/Post Dialysis Refused Weight 177.201621411810 BP Diastolic BP Location Tested BP Systolic BP Type 82 118 Fetus Heart Rate Present Fetus Movement A Yes Comments patient states that bleeding and having cramping. subchorionic hemorrhage, anion/chorion fused, spotting, pt to monitor, f/u 4 weeks anatomy schedule us check sooner Flowsheet Date 05/25/2023 Barrera Score Blood Edema Fundus Height Fundus Units Glucose Ketones Leukocytes Nitrite Labor Signs Protein Cervic Dilation Cervic Effacement Cervic Station Type Weight in lbs Pre/Post Dialysis Refused BP Diastolic BP Location Tested BP Systolic BP Type Fetus Heart Rate Present Fetus Movement Comments Flowsheet Date 05/25/2023 Barrera Score Blood Edema Fundus Height Fundus Units Glucose Ketones Leukocytes Nitrite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
--- OUTSIDE RECORDS SUMMARY | 2025-05-26 15:07 | XMS_ITS | Clinical Summary ---
Author Organization [facility] Address [address] [place] [address] Care Team Providers Care River Rat Name Role Phone [facility] ([facility]) Primary Care Provi julio cesar Source Comments [facility] Affiliates and Associated Physician Practices is amultiple site organization consisting of ambulatory clinics and hospital sitesin [place], [place], [place] and [place]. This disclosure is being madepursuant to the Care Everywhere program and may not contain all information available regarding this patient. Last updated 18.[facility] Epom Allergies Active Allergy Reactions Criticality Noted Date Comments Ibuprofen 06/26/2010 Not to have any meds that filter through the kidneys Medications * Be aware that medications may not be up to date on this document. Alwaysverify current medications with the patient. SUMAtriptan (IMITREX) 25 MG tablet Take 25 mg by mouth once as needed. 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 Gender Identity Not on file Sexual Orientation Not on file Last Filed Vital Signs Vital Sign Reading Time Taken Comments Blood Pressure 126/80 06/08/2017 11:48 AM SOLUTION DESIGNER Pulse 96 06/08/2017 11:48 AM SOLUTION DESIGNER Temperature 36.9 C (98.4 F) 06/08/2017 11:48 AM SOLUTION DESIGNER Respiratory Rate 16 06/08/2017 11:48 AM SOLUTION DESIGNER Oxygen Saturation 99% 06/08/2017 11:48 AM SOLUTION DESIGNER Inhaled Oxygen Concentration - - Weight 72.6 kg (160 lb) 06/08/2017 11:48 AM SOLUTION DESIGNER Height 170.2 cm (5' 7) 06/08/2017 11:48 AM SOLUTION DESIGNER Body Mass Index 25.06 06/08/2017 11:48 AM SOLUTION DESIGNER Plan of Treatment Health Maintenance Due Date Last Done Comments HIV SCREENING 2008 HEPATITIS C SCREENING 08/01/2011 DTAP/TDAP/TD VACCINES (1 - Tdap) 2012 HEPATITIS B VACCINE (1 of 3 - 19+ 3-dose series) 2012 PAP SMEAR 2014 HPV VACCINE (1 - 3-dose SCDM series) 2020 DEPRESSION SCREENING 05/30/2024 COVID-19 VACCINE (1 - 2024-2 6 season) 2025 INFLUENZA VACCINE (#1) 2025 ZOSTER VACCINE (1 of 2) 08/06/2043 HIB VACCINE Aged Out No longer eligi ble based on patient's age to complete this topic MENINGOCOCCAL (Group B) VACC INE SHARED DECISION-MAKING Aged Out No longer eligibl e based on patient's age to complete this topic MENINGOCOCCAL GROUPS A/C/Y/W VACCINE Aged Out No longer eligible b ased on patient's age to complete this topic PNEUMOCOCCAL VACCINE Aged Out No long er eligible based on patient's age to complete this topic Insurance [facility] * Guarantor: DAHIANA SOL Account Type Relation to Patient Date of Phone Billing Address Personal/Family [address] [place], [place] [phone] [facility] SELF PAY NO INSURANCE Member Subscriber Plan / Payer (Ef fective for All Dates) Name:Dahiana Sol Member ID:Not on file Relation to Subscriber:Not on file Name:DAHIANA SOL Subscriber ID:Not on file Address: [address] [place] [address] Payer ID:Not on file Group ID:Not on file Type:Self Pay Address: [place], [place] * Guarantor: DAHIANA SOL Account Type Relation to Patient Date of Phone Billing Address Personal/Family [address] [place] [address] SELF PAY NO INSURANCE Member Subscriber Plan / Payer (Ef fective for All Dates) Name:Dahiana Sol Member ID:Not on file Relation to Subscriber:Not on file Name:DAHIANA SOL Subscriber ID:Not on file Address: [address] [place], [place] [phone] Payer ID:Not on file Group ID:Not on file Type:Self Pay Address: [place], [place] * Guarantor: DAHIANA SOL Account Type Relation to Patient Date of Phone Billing Address Personal/Family [address] [place] [phone] [facility] SELF PAY NO INSURANCE Member Subscriber Plan / Payer (Ef fective for All Dates) Name:Dahiana Sol Member ID:Not on file Relation to Subscriber:Not on file Name:DAHIANA SOL Subscriber ID:Not on file Address: [address] [place] [phone] Payer ID:Not on file Group ID:Not on file Type:Self Pay Address: [place], [place] Care Teams River Rat Relationship Specialty Start Date End Date [facility] [address] [place] [address] PCP - General 06/26/10
--- OUTSIDE RECORDS SUMMARY | 2025-05-26 15:07 | XMS_ITS | Data Portability ---
Author Organization [facility], Main Office Address [address] [place] [address] Care Team Providers Care Operations Support Specialist Name Role Phone LEILANI ESPINAL Primary Care Provider Assessment Encounter Date Assessment Date Assessment LastModified by Organization Details LastModified Time 09/29/2022 09/29/2022 SHABANA BULLET LUBRICATING MACHINE OPERATORHenrik Ernst at [facility] Call office if worse, ER if life threatening illness Keep regular follow up appt She voices understanding of plan and agree [email or web address] Not available 09/29/2022 11:25:41 10/11/2022 10/11/[address] [facility] Call office if worse, ER if life threatening illness RTC 3 months She voices understanding of plan and agree [email or web address] Not available 10/11/2022 13:58:25 02/15/2023 02/15/[address] [facility] WEA- 02/15/23 Call office if worse, ER if life threatening illness RTC 1 month She voices understanding of plan and agree [email or web address] Not available 02/15/2023 16:47:00 Plan of Treatment Reminders Order Date Submit Date Provider Last Modified By Organization Details Last Modified Time Details Appointments None recorded. Lab tb (M tuberculos is), ifn-gamma rik, blood 2024 025 [email or web address] 2 [facility] (Lab), [address] [place], [address], 09:04:57 CBC w/ auto diff 2024 [email or web address] [place] [address] (Lab), [address] [place], [address], 5 09:04:57 CBC w/ auto diff 2023 024 [facility] (Lab), [address] [place], [address], 4 08:57:54 CMP, serum or plasma 2023 [facility] (Lab), [address] [place], [address], 4 08:57:55 lipid panel, serum 2023 [facility] (Lab), [address] [place], [address], 4 07:49:03 TSH + free T4, serum 2023 024 [facility] (Lab), [address] [place], [address], 4 08:57:54 vitamin B12 + folate, serum or blood 2023 024 [facility] (Lab), [address] [place], [address], 4 07:49:03 vitamin D, 25-hydroxy , total, serum 2023 024 [facility] (Lab), [address] [place], [address], 4 07:49:03 hepatitis C virus Ab, serum 2023 024 [facility] (Lab), [address] [place], [address], 4 07:49:03 HbA1c (hemoglobi n A1c), blood 2023 024 [facility] (Lab), [address] [place], [address], 4 07:49:03 iron + total iron-saurabh ng capacity (TIBC), serum 2023 024 [facility] (Lab), [address] [place], [address], 4 07:49:03 CLAUDIA (antinucle ar antibodies ) screen, ifa, serum [address] (Lab), [address] [place], [address], 4 17:07:45 lipid panel, serum 2022 023 [facility] (Lab), [address] [place], [address], 3 18:34:04 CBC w/ auto diff 2022 023 [facility] (Lab), [address] [place], [address], 3 17:35:33 CMP, serum or plasma 2022 023 [facility] (Lab), [address] [place], [address], 3 18:33:58 vitamin B12 + folate, serum or blood [address] (Lab), [address] [place], [address], 4 17:07:45 vitamin D, 25-hydroxy , total, serum [email or web address] [place] [address] (Lab), [address] [place], [address], 4 17:07:38 glycohemog lobin, total, blood 2022 023 [facility] (Lab), [address] [place], [address], 3 18:13:44 iron + total iron-saurabh ng capacity (TIBC), serum 2022 023 [facility] (Lab), [address] [place], [address], 3 18:24:41 ferritin, serum or plasma 2022 023 [facility] (Lab), [address] [place], [address], 3 19:44:[address] referral - Please call patient to schedule. 2024 025 [email or web address] 2 [facility], [address] [place] [address], [place], [address], 5 09:22:06 otolaryngo logist referral - Please call patient to schedule. 2023 024 [email or web address] 2 Roberta Juarez [facility], [address], [place], [address], 5 08:38:[address] referral 2023 024 [email or web address] Evelyn Bauer [facility], [address] [facility] [address], [place], [address], 4 16:40:48 otolaryngo logist referral 2022 023 [email or web address] Villanueva MD, [address] [facility] , [address], [place], [address], 4 08:47:38 neurologis t referral 2022 023 [email or web address] Jose Abel MD, [address] [facility] , [address], [place], [address], 4 08:47:40 otolaryngo logist referral 2022 023 [email or web address] Juan Villanueva MD, [address] [facility] , [address], [place], [address], 4 09:28:[address] referral 2022 023 [email or web address] Matilde Sher [employer] DES[employer], [address] [facility], [address], [place], [address], 4 09:28:[address] referral 2022 023 PASHA Mcgrath MD, [address] [facility], [address], [place], [address], 3 09:58:53 Procedures None recorded. Surgeries None recorded. Imaging US, thyroid - Please call patient to schedule. 2023 024 [email or web address] [facility] ([facility]), [address] [place], [address], 4 17:14:57 MRI, brain, w/wo contrast - approved [id number] 0 03/10/23-1 2022 023 [email or web address] [facility] ([facility]), [address] [place], [address], 4 08:43:51 Medication Orders escitalopr am 10 mg tablet 2024 025 [facility]/Pharmacy #[id number], [address], [place], [address], 5 13:06:14 hydroxyzin e HCl 10 mg tablet 2024 025 [facility]/Pharmacy #[id number], [address], [place], [address], 5 13:06:14 Nurtec ODT 75 mg disintegra ting tablet 2023 024 [email or web address] [facility]/Pharmacy #[id number], [address], [place], [address], 5 12:45:19 sumatripta n 100 mg tablet 2023 024 [facility]/Pharmacy #[id number], [address], [place], [address], 4 15:48:07 topiramate 25 mg tablet 2022 023 [email or web address] [facility]/Pharmacy #[id number], [address], [place], [address], 4 15:28:34 Patient TargetsNo targets recorded. Patient Instructions Encounter Date Encounter Id Patient Instructions Last Modified By Organization Details Last Modified Time 02/15/2023 [id number] INFLUENZA VACCIN E Your next one in the fall of 2022 TD/TDAP Patient will get at local pharmacy/health department MAMMOGRAM No screening indicated at this time/ no family history CERVICAL SCREENING/PELVIC EXAMINATION No screening necessary patient is up to date COLORECTAL SCREENING No screening necessary until age 45 DEPRESSION SCREENING History of depression BMI Overweight Continue healthy eating & exercise NUTRITION Continue healthy eating & exercise PHYSICAL ACTIVITY Need more activity Recommendation of 30 minutes of daily activity VISION Recommended today ALCOHOL USE No alcohol use TOBACCO USE non smoker SEXUALLY ACTIVE Yes, Patient is in monogamous relationship GLUCOSE SCREENING Ordered LIPID SCREENING Ordered [email or web address] Not available 02/15/2023 16:49:33 03/22/2024 [id number] Follow up in 3 months Prescription sent to pharmacy Obtain labs Tests: Referral: Evelyn Sieffert-Psychiatr y-ADHD evaluation. Dr. BarajasHvuryqtne-ECU-esdj l polyps Recommend: Influenza vaccine Tetanus vaccine Not available 03/22/2024 15:47:19 06/18/2024 [id number] Follow up in 6 months and as needed Prescriptions sent to pharmacy Obtain labs Tests: Referral: [facility] Recommend: Tetanus vaccine Not available 06/18/2024 13:04:26 Reason for Referral Psychiatrist Referral for Ge neralized anxiety disorder Referring Physician: Francoise Stern [facility], Encounter Date: 10/11/2022 Instrument Technician Helper Referral fo r Deviated nasal septum Referring Physician: Francoise Stern [facility], Encounter Date: 10/11/2022 Process Architect Referral for El ectrocardiogram abnormal Referring Physician: Francoise Stern [facility], Encounter Date: 10/11/2022 Instrument Technician Helper Referral fo r Deviated nasal septum Referring Physician: Francoise Stern [facility], Encounter Date: 02/15/2023 Neurologist Referral for Marco A griffin Referring Physician: Francoise Stern [facility], Encounter Date: 02/15/2023 Psychiatrist Referral for At tention deficit hyperactivity disorder Referring Physician: Leilani Espinal Internal Medicine, Encounter Date: 03/22/2024 Instrument Technician Helper Referral fo r Polyp of nasal cavity Please call patient to schedule. Referring Physician: Leilani Espinal Internal Medicine, Encounter Date: 03/22/2024 Psychiatrist Referral for Ge neralized anxiety disorder Please call patient to schedule. Referring Physician: Leilani Espinal [facility], Encounter Date: 06/18/2024 Results Created Date Observation Date Name Description Value Unit Range Abnormal Flag Note LastModifiedBy Organization Detail LastModifiedTime 02/16/20 23 02/15/2023 CBC/C OMPLE TE BLD COUNT W/DIF F white blood cells 12.2 x10'3 /uL 4.2-10 .8 high Not Available [facility] (Lab) [address] [place], [address], 02/15/2023 17:35:33 02/16/20 23 02/15/2023 CBC/C OMPLE TE BLD COUNT W/DIF F red blood cells 4.73 x10'6 /uL 3.80-5 .20 Not Available [facility] (Lab) [address] [place], [address], 02/15/2023 17:35:33 02/16/20 23 02/15/2023 CBC/C OMPLE TE BLD COUNT W/DIF F hemoglobin 14.4 g/dL 12.0-1 5.6 Not Available [facility] (Lab) [address] [place], [address], 02/15/2023 17:35:33 02/16/20 23 02/15/2023 CBC/C OMPLE TE BLD COUNT W/DIF F hematocrit 44.7 % 35.7-4 5.7 Not Available [facility] (Lab) [address] [place], [address], 02/15/2023 17:35:33 02/16/20 23 02/15/2023 CBC/C OMPLE TE BLD COUNT W/DIF F mean red cell volume 94.5 fL 82.0-9 9.0 Not Available [facility] (Lab) [address] [place], [address], 02/15/2023 17:35:33 02/16/20 23 02/15/2023 CBC/C OMPLE TE BLD COUNT W/DIF F mean red cell hemoglobin 30.4 pg 27.0-3 3.0 Not Available [facility] (Lab) [address] [place], [address], 02/15/2023 17:35:33 02/16/20 23 02/15/2023 CBC/C OMPLE TE BLD COUNT W/DIF F mean RBC HGB concentratio n 32.2 g/dL 31.0-3 6.0 Not Available [facility] (Lab) [address] [place], [address], 02/15/2023 17:35:33 02/16/20 23 02/15/2023 CBC/C OMPLE TE BLD COUNT W/DIF F red cell distribution width 12.7 % 11.8-1 5.5 Not Available [facility] (Lab) [address] [place], [address], 02/15/2023 17:35:33 02/16/20 23 02/15/2023 CBC/C OMPLE TE BLD COUNT W/DIF F platelets 303 x10'3 /uL 150-40 0 Not Available [facility] (Lab) [address] [place], [address], 02/15/2023 17:35:33 02/16/20 23 02/15/2023 CBC/C OMPLE TE BLD COUNT W/DIF F mean platelet volume 12.5 fL 9.0-12 .4 high Not Available [facility] (Lab) [address] [place], [address], 02/15/2023 17:35:33 02/16/20 23 02/15/2023 CBC/C OMPLE TE BLD COUNT W/DIF F neutrophils 70.3 % 39.0-7 2.0 Not Available [facility] (Lab) [address] [place], [address], 02/15/2023 17:35:33 02/16/20 23 02/15/2023 CBC/C OMPLE TE BLD COUNT W/DIF F lymphocytes 20.9 % 16.0-4 7.0 Not Available [facility] (Lab) [address] [place], [address], 02/15/2023 17:35:33 02/16/20 23 02/15/2023 CBC/C OMPLE TE BLD COUNT W/DIF F monocytes 6.8 % 5.0-12 .0 Not Available [facility] (Lab) [address] [place], [address], 02/15/2023 17:35:33 02/16/20 23 02/15/2023 CBC/C OMPLE TE BLD COUNT W/DIF F eosinophils 1.1 % 1.0-7. 0 Not Available [facility] (Lab) [address] [place], [address], 02/15/2023 17:35:33 02/16/20 23 02/15/2023 CBC/C OMPLE TE BLD COUNT W/DIF F basophils 0.6 % 0.0-2. 0 Not Available [facility] (Lab) [address] [place], [address], 02/15/2023 17:35:33 02/16/20 23 02/15/2023 CBC/C OMPLE TE BLD COUNT W/DIF F immature granulocytes 0.3 % 0.00-0 .50 Not Available [facility] (Lab) [address] [place], [address], 02/15/2023 17:35:33 02/16/20 23 02/15/2023 CBC/C OMPLE TE BLD COUNT W/DIF F neutrophils, absolute count 8.60 x10'3 /uL 1.5-8. 0 high Not Available [facility] (Lab) [address] [place], [address], 02/15/2023 17:35:33 02/16/20 23 02/15/2023 CBC/C OMPLE TE BLD COUNT W/DIF F lymphocytes, absolute count 2.55 x10'3 /uL 1.07-3 .43 Not Available [facility] (Lab) [address] [place], [address], 02/15/2023 17:35:33 02/16/20 23 02/15/2023 CBC/C OMPLE TE BLD COUNT W/DIF F monocytes, absolute count 0.83 x10'3 /uL 0.29-0 .99 Not Available [facility] (Lab) [address] [place], [address], 02/15/2023 17:35:33 02/16/20 23 02/15/2023 CBC/C OMPLE TE BLD COUNT W/DIF F eosinophils, absolute count 0.13 x10'3 /uL 0.02-0 .53 Not Available [facility] (Lab) [address] [place], [address], 02/15/2023 17:35:33 02/16/20 23 02/15/2023 CBC/C OMPLE TE BLD COUNT W/DIF F basophils, absolute count 0.07 x10'3 /uL 0.01-0 .08 Not Available [facility] (Lab) [address] [place], [address], 02/15/2023 17:35:33 02/16/20 23 02/15/2023 CBC/C OMPLE TE BLD COUNT W/DIF F immature granulocytes ,absolute 0.04 x10'3 /uL 0.00-0 .05 Not Available [facility] (Lab) [address] [place], [address], 02/15/2023 17:35:33 02/16/20 23 02/15/2023 CBC/C OMPLE TE BLD COUNT W/DIF F nucleated red blood cells 0.0 % -0 Not Available [facility] (Lab) [address] [place], [address], 02/15/2023 17:35:33 02/16/20 23 02/15/2023 CBC/C OMPLE TE BLD COUNT W/DIF F NRBC# 0.00 x10'3 /uL Not Available [facility] (Lab) [address] [place], [address], 02/15/2023 17:35:33 02/16/20 23 02/15/2023 HEMOG LOBIN A1C HA1C 5.0 % 4.0-6. 0 Diabe ranjan Jacuqeline phu Crite anahi: <5.7% Consi stent with absen ce of diabe ranjan 5.7-6 .4% Consi stent with incre ased risk for diabe ranjan (pred iabet es) >OR=6 .5% Consi stent with diabe ranjan REFER ENCE: Diabe ranjan Care 2016, 39(Thomas ppl.1 ):s13 -s22 Not Available [facility] (Lab) [address] [place], [address], 02/15/2023 18:13:44 02/16/20 23 02/15/2023 IRON/ TIBC PANEL total iron binding capacity 371 mcg/d L 265-47 5 Not Available [facility] (Lab) [address] [place], [address], 02/15/2023 18:34:43 02/16/20 23 02/15/2023 IRON/ TIBC PANEL % transferrin saturation 22 % 20-55 Not Available [facility] (Lab) [address] [place], [address], 02/15/2023 18:34:43 02/16/20 23 02/15/2023 IRON/ TIBC PANEL unsaturated iron bind capacity 289 mcg/d L 126-38 2 Not Available [facility] (Lab) [address] [place], [address], 02/15/2023 18:34:43 02/16/20 23 02/15/2023 IRON/ TIBC PANEL iron 82 mcg/d L 42-175 Not Available [facility] (Lab) [address] [place], [address], 02/15/2023 18:34:43 02/16/20 23 02/15/2023 COMPR EHENS SUSANNE METAB OLIC PANEL sodium 138 mmol/ L 137-14 5 Not Available [facility] (Lab) [address] [place], [address], 02/15/2023 18:33:58 02/16/20 23 02/15/2023 COMPR EHENS SUSANNE METAB OLIC PANEL potassium 4.6 mmol/ L 3.5-5. 1 Not Available [facility] (Lab) [address] [place], [address], 02/15/2023 18:33:58 02/16/20 23 02/15/2023 COMPR EHENS SUSANNE METAB OLIC PANEL chloride 105 mmol/ L 98-107 Not Available [facility] (Lab) [address] [place], [address], 02/15/2023 18:33:58 02/16/20 23 02/15/2023 COMPR EHENS SUSANNE METAB OLIC PANEL carbon dioxide 25 mmol/ L 22-30 Not Available [facility] (Lab) [address] [place], [address], 02/15/2023 18:33:58 02/16/20 23 02/15/2023 COMPR EHENS SUSANNE METAB OLIC PANEL anion gap 12.6 mmol/ L 14-22 low Not Available [facility] (Lab) [address] [place], [address], 02/15/2023 18:33:58 02/16/20 23 02/15/2023 COMPR EHENS SUSANNE METAB OLIC PANEL glucose 80 mg/dL 70-99 Not Available [facility] (Lab) [address] [place], [address], 02/15/2023 18:33:58 02/16/20 23 02/15/2023 COMPR EHENS SUSANNE METAB OLIC PANEL BUN 8 mg/dL 8-19 Not Available [facility] (Lab) [address] [place], [address], 02/15/2023 18:33:58 02/16/20 23 02/15/2023 COMPR EHENS SUSANNE METAB OLIC PANEL creatinine 0.60 mg/dL 0.66-1 .25 low Not Available [facility] (Lab) [address] [place], [address], 02/15/2023 18:33:58 02/16/20 23 02/15/2023 COMPR EHENS SUSANNE METAB OLIC PANEL GFR >60 Refer ence Range : [place] ge GFR Healt hy Adult : >60 mL/mi n/1.7 3 m2 Chron ic Kidne y Disea se: 15-60 mL/mi n/1.7 3 m2 Kidne y Failu re: <15/m L/min /1.73 m2 www.n iddk. nih.g ov The MDRD study equat ion has not been valid ated in child ana <18 years of age; pregn ant women ; the elder ly >85 years of age; or in some racia l or ethni c subgr oups, such as [facility] nics. Outsi de the valid ated sergio eters , estim ated GFR is less accur ate, requi ring clini ananda judgm ent on a case- by-ca se basis . Clini ananda inter preta tion for other races and ages must be made by the clini varsha. The MDRD study equat ion has not been valid ated for the evalu ation of serum creat inine relat ed to nutri ayaka l statu s or medic ation usage . For perso ns <18 years of age, a pedia tric GFR calcu lator is avail able on the F websi te: https ://ww w.kid odalys.o rg/pr ofess ional s/kdo qi/gf r_cal culat or Not Available [facility] (Lab) [address] [place], [address], 02/15/2023 18:33:58 02/16/2002/15/2023 COMPR EHENS SUSANNE METAB OLIC PANEL alkaline phosphatase 97 U/L 38-126 Not Available [facility] (Lab) [address] [place], [address], 02/15/2023 18:33:58 02/16/20 23 02/15/2023 COMPR EHENS SUSANNE METAB OLIC PANEL alanine aminotransfe rase 18 U/L 0-35 Not Available [facility] (Lab) [address] [place], [address], 02/15/2023 18:33:58 02/16/20 23 02/15/2023 COMPR EHENS SUSANNE METAB OLIC PANEL aspartate aminotransfe rase 18 U/L 15-37 Not Available [facility] (Lab) [address] [place], [address], 02/15/2023 18:33:58 02/16/20 23 02/15/2023 COMPR EHENS SUSANNE METAB OLIC PANEL bilirubin, total 0.40 mg/dL 0.20-1 .30 Not Available [facility] (Lab) [address] [place], [address], 02/15/2023 18:33:58 02/16/20 23 02/15/2023 COMPR EHENS SUSANNE METAB OLIC PANEL calcium 9.3 mg/dL 8.4-10 .2 Not Available [facility] (Lab) [address] [place], [address], 02/15/2023 18:33:58 02/16/20 23 02/15/2023 COMPR EHENS SUSANNE METAB OLIC PANEL total protein 7.4 g/dL 6.3-8. 2 Not Available [facility] (Lab) [address] [place], [address], 02/15/2023 18:33:58 02/16/20 23 02/15/2023 COMPR EHENS SUSANNE METAB OLIC PANEL albumin 4.2 g/dL 3.4-5. 0 Not Available [facility] (Lab) [address] [place], [address], 02/15/2023 18:33:58 02/16/20 23 02/15/2023 COMPR EHENS SUSANNE METAB OLIC PANEL globulin 3.2 g/dL 2.6-4. 2 Not Available [facility] (Lab) [address] [place], [address], 02/15/2023 18:33:58 02/16/20 23 02/15/2023 COMPR EHENS SUSANNE METAB OLIC PANEL A/G ratio 1.3 ratio 1.0-2. 0 Not Available [facility] (Lab) [address] [place], [address], 02/15/2023 18:33:58 02/16/2002/15/2023 LIPID PANEL cholesterol 120 mg/dL 140-19 9 low NIH KEVIN NSUS RECOM MENDA TION FOR SHERMAN STERO L: ADULT CHILD LOW RISK: <200 <170 BORDE RLINE : <200- 239 ----- HIGH RISK: >240 >200 Not Available [facility] (Lab) [address] [place], [address], 02/15/2023 18:34:04 02/16/2002/15/2023 LIPID PANEL triglyceride s 68 mg/dL 0-150 NIH KEVIN NSUS REPOR T RECOM MENDA TION FOR TRIGL YCERI KACIE: ADULT CHILD LOW RISK: <150 ----- BODER LINE: 150-1 99 ----- HIGH RISK: >200 ----- Not Available [facility] (Lab) [address] [place], [address], 02/15/2023 18:34:04 02/16/20 23 02/15/2023 LIPID PANEL HDL cholesterol 44 mg/dL 40- Not Available [facility] (Lab) [address] [place], [address], 02/15/2023 18:34:04 02/16/20 23 02/15/2023 LIPID PANEL LDL cholesterol, calculated 62 mg/dL 0-130 NIH KEVIN NSUS REPOR T RECOM MENDA TIONS FOR LDL: ADULT CHILD LOW RISK <130 <110 (OPTI MAL LDL) <100 ----- BORDE RLINE : 130-1 59 ----- HIGH RISK: >160 >130 A TRIGL YCERI DE RESUL T >400 INVAL IDATE S THE CALCU LATIO N FOR LDL FRACT IONAT ION - THE LDL RESUL T WILL NOT BE REPOR PARRIS. Not Available [facility] (Lab) [address] [place], [address], 02/15/2023 18:34:04 02/16/20 23 02/15/2023 VITAM IN D 25-HY DROXY vd25oh 16.6 NG/mL 30-100 low Vitam in D Statu s: Defic ient: <20 ng/mL Insuf ficie nt: 20-29 ng/mL Suffi cient : 30-10 0 ng/mL Not Available [facility] (Lab) [address] [place], [address], 02/15/2023 18:36:45 02/16/2002/15/2023 VITAM IN B12 (SHAI NATHANIEL ) vb12 334 pg/mL 239-93 1 Not Available [facility] (Lab) [address] [place], [address], 02/15/2023 19:20:18 02/16/20 23 02/15/2023 FOLAT E, SERUM /PLAS MA folate 6.23 NG/mL 2.76-2 0.0 Not Available [facility] (Lab) [address] [place], [address], 02/15/2023 19:20:22 02/16/20 23 02/15/2023 SWEETIE TIN ferritin 19 NG/mL 6.24-1 37 Not Available [facility] (Lab) [address] [place], [address], 02/15/2023 19:44:25 02/16/20 23 02/17/2023 CLAUDIA BY IFA RFX TITER /SREEKANTH FREYA antinuclear antibodies, ifa Negati ve Negat susanne <1:80 Borde rline 1:80 Posit susanne >1:80 ICAP bruce moody re: AC-0 For more infor lisa davila about Hep-2 cell patte rns use Dariel ttern s.org , the offic ial jennii te for the Inter natio nal Conse nsus on Antin uclea r Antib indra (CLAUDIA) Patte rns (ICAP ). Perfo rmed at: [facility] [address] [place] [address] 1269 Lab Direc tor: Mark Anthony de santiago PhD, Phone : [phone] Not Available [facility] (Lab) [address] [place], [address], 02/17/2023 14:12:19 11/23/19 23 11/15/2022 philip r monit or No observ ation record ed. [address] [facility] [address], [place], [address], 11/23/2022 16:36:19 04/03/20 23 04/03/2023 [place], obste tric, 1st trime ster No observ ation record ed. [address] [facility] [address], [place], [address], 04/07/2023 10:14:31 Result Notes None recorded. Problems Name Problem SNOMED Code Status Onset Date Resolution Date Notes Provider Name and Address Organization Details Recorded Time Backache 374659952 Completed Not Available [facility] 3 16:12:26 Pain in throat 825721670 Completed Not Available [facility] 3 16:12:26 Abdominal pain 44301878 Completed Not Available [facility] 3 16:12:27 Low back pain 845605767 Completed Not Available [facility] 3 16:12:27 Chest pain 05511259 Completed Not Available [facility] 3 16:12:27 Bronchitis 96120219 Completed Not Available [facility] 3 16:12:27 Fracture of rib 51755133 Completed Not Available [facility] 3 16:12:27 Tachycardi a 6479883 Completed Not Available [facility] 3 16:12:27 Depressive disorder 31822491 Completed Not Available [facility] 3 16:12:27 Sinusitis 29922673 Completed Not Available [facility] 3 16:12:27 Migraine 31481926 Active Leilani Espinal APRN [address], [address], [place], [address] , [employer] 4 21:43:38 Anxiety 91995229 Completed Not Available [facility] 3 16:12:28 Cervical radiculopa thy 17919704 Active Leilani Espinal APRN [address], [address], [place], [address] , [employer] 21:43:15 Leukocytos is 025155865 Active 2021 Leilani Espinal APRN [address], [address], [place], [address] , [facility] 4 10:11:56 Cobalamin deficiency 021746920 Active 2021 Leilani Espinal APRN [address], [address], [place], [address] , [facility] 4 21:43:20 Vitamin D deficiency 65700804 Active 2021 Leilani Espinal APRN [address], [address], [place], [address] , [facility] 4 21:43:50 Iron deficiency anemia 70467391 Active 2021 Leilani Espinal APRN [address], [address], [place], [address] , [facility] 21:43:32 Generalize d anxiety disorder 31018617 Active 2022 Leilani Espinal APRN [address], [address], [place], [address] , [facility] 4 21:43:29 Deviated nasal septum 428830020 Active 2022 Leilani Espinal APRN [address], [address], [place], [address] , [facility] 4 21:43:26 Vitamin B12 deficiency (non anemic) 49257361 Active 2022 Leilani Espinal APRN [address], [address], [place], [address] , [facility] 4 21:43:41 Dyspnea on exertion 60319877 Active 2022 Not Available [facility] 3 07:43:37 Acute urinary tract infection 454607826 Active 2022 Not Available [facility] 3 07:43:37 Lumbago with sciatica 087596822 Active 2022 Leilani Espinal APRN [address], [address], [place], [address] , [facility] 4 21:43:35 Electrocar diogram abnormal 732363867 Active 2022 Not Available [facility] 3 07:43:36 Corneal abrasion 26710101 Active 2022 Not Available [facility] 3 07:43:37 Butterfly rash 62874128 Active 2022 Leilani Espinal APRN [address], [address], [place], [address] , [facility] 4 21:43:13 Eruption 664324894 Active 2022 [place], [place] - [facility] 3 16:42:20 Attention deficit hyperactiv ity disorder 621296872 Active 2023 Leilani Espinal APRN [address], [address], [place], [address] , [facility] 4 15:39:26 Polyp of nasal cavity 177191254 Active 2023 Leilani Espinal, PIPELINE OPERATOR [address] [facility], [facility] [address], [place], [address] , [employer] 4 15:45:48 Notes:Some problems listed i n Document: #[id number] could not be added to this patient's chart. Please review this document and add these problems to the patient's chart manually as needed. Problem Notes None recorded. Procedures Surgical History Date Name Laterality Status Provider Name and Address Organization Details Recorded Time 3 Eye Surgery completed Gissell Loza MA [employer] 10/11/2022 11:31:28 Kidney completed Lisa Weaver MA [employer] 06/18/2024 12:46:16 Hernia Surgery completed Lisa Weaver MA [employer] 06/18/2024 12:46:24 Imaging Results None recorded. Procedure Notes None recorded. Medical Equipment None Reported. Allergies Allergen ID Allergen Name Allergen Category Reaction Reaction Severity Criticality Documentation Date Start Date Code Code System Note Provider Name and Address Organization Details Recorded Time 15281 ibuprofen medicatio n Not available Not available Not available 07/28/2022 5640 RxNorm Not Available [facility] 3 16:13:29 Medications Name Sig Start Date Stop Date Status Note LastModified by Organization Details LastModified Time cyclobenz aprine 10 mg tablet Take 1 tablet every day by oral route as needed. 02/15 completed Not Available Not Available Not Available amoxicill in 500 mg capsule Take 1 capsule 3 times a day by oral route for 7 days. active Not Available Not Available No t Available metoclopr amide 5 mg/mL injection solution 10 mg by injectio n route. 02/13 completed Not Available Not Available Not Available labetalol 200 mg tablet TAKE 1 TABLET BY MOUTH EVERY 12 HOURS 03/22 completed Not Available Not Available Not Available citalopra m 40 mg tablet TAKE 1 TABLET BY MOUTH EVERY DAY 08/17 completed Not Available Not Available Not Available Vitamin C 500 mg tablet Take 1 tablet every day by oral route. 01/25 completed Not Available Not Available Not Available trazodone 50 mg tablet TAKE 1 TABLET BY MOUTH AT BEDTIME NEEDED FOR SLEEP-IN SOMNIA active Not Available Not Available No t Available cetirizin e 10 mg tablet TK 1 T PO D 02/16 completed Not Available Not Available Not Available azithromy maria luz 250 mg tablet TAKE 2 TABLETS BY MOUTH FOR 1 DAY THEN TAKE 1 TABLET BY MOUTH DAILY FOR 4 DAYS 09/14 completed Not Available Not Available Not Available ofloxacin 0.3 % eye drops INSTILL 1 DROP INTO THE LEFT EYE TWICE DAILY 03/22 completed Not Available Not Available Not Available nystatin 100,000 unit/gram topical ointment APPLY TOPICALL Y TO THE AFFECTED AREA TWICE DAILY 01/25 completed Not Available Not Available Not Available fluconazo le 150 mg tablet 1 TAB BY MOUTH NEEDED, NOT TO EXCEED MORE THAN 2 IN A 7 DAY PERIOD 03/22 completed Not Available Not Available Not Available ampicilli n 500 mg capsule TAKE 1 CAPSULE BY MOUTH TWICE DAILY FOR 10 DAYS 01/25 completed Not Available Not Available Not Available [...] HOURS FOR 3 DAYS NEEDED FOR PAIN 09/29 completed from [facility] Not Available Not Available Not Available metronida zole 0.75 % (37.5 mg/5 gram) vaginal gel INSERT 1 APPLICAT ORFUL VAGINALL Y EVERY DAY AT BEDTIME 01/25 completed Not Available Not Available Not Available ondansetr on HCl 4 mg tablet TAKE 1 TABLET BY MOUTH EVERY 4 TO 6 HOURS NEEDED 03/22 completed Not Available Not Available Not Available prednison e 20 mg tablet TAKE 2 TABLETS BY MOUTH EVERY DAY AT 8 AM 03/22 completed Not Available Not Available Not Available terconazo le 0.8 % vaginal cream INSERT 1 APPLICAT ORFUL VAGINALL Y EVERY DAY FOR 3 DAYS 01/25 completed Not Available Not Available Not Available topiramat e 25 mg tablet TAKE 1 TABLET BY MOUTH EVERYDAY AT BEDTIME 03/22 completed Not Available Not Available Not Available metronida zole 500 mg tablet TAKE 1 TABLET BY MOUTH TWICE DAILY FOR 7 DAYS 01/25 completed Not Available Not Available Not Available ciproflox acin 500 mg tablet TAKE 1 TABLET BY MOUTH EVERY 12 HOURS FOR 7 DAYS 09/14 completed Not Available Not Available Not Available sulfameth oxazole 800 mg-trimet hoprim 160 mg tablet TK 1 T PO QD active Not Available Not Available No t Available tramadol 50 mg tablet Take 1 tablet twice a day by oral route as needed. active Not Available Not Available No t Available amitripty line 50 mg tablet TAKE 1/2 TABLET BY MOUTH DAILY AT BEDTIME FOR 1 WEEK. INCREASE TO 1 TABLET DAILY AT BEDTIME THEREAFT ER 08/26 completed Not Available Not Available Not Available ketorolac 30 mg/mL (1 mL) injection solution 30 mg by injectio n route. 02/13 completed Not Available Not Available Not Available butalbita l-acetami nophen-ca ffeine 50 mg-325 mg-40 mg tablet TAKE 1-2 TABLETS BY MOUTH EVERY 6 HOURS NEEDED HEADACHE 02/16 completed Not Available Not Available Not Available amoxicill in 500 mg tablet Take 1 tablet 3 times a day by oral route for 7 days. active Not Available Not Available No t Available ketorolac 10 mg tablet TAKE 1 TABLET BY MOUTH EVERY 8 HOURS NEEDED FOR PAIN. MAX OF 5 DAYS 03/22 completed Not Available Not Available Not Available Kenalog 40 mg/mL suspensio n for injection Take 1 mL by injectio n route. 02/15 completed Not Available Not Available Not Available oxycodone -acetamin ophen 5 mg-325 mg tablet TAKE 1 TABLET BY MOUTH EVERY 6 HOURS 03/22 completed Not Available Not Available Not Available hydrocort isone 2.5 % topical cream with perineal applicato r APPLY 1 APPLICAT ION ONTO THE AFFECTED AREA 2-3 TIMES DAILY 03/22 completed Not Available Not Available Not Available alprazola m 0.5 mg tablet TAKE 1 TABLET BY MOUTH EVERY 8 HOURS NEEDED FOR ANXIETY 03/22 completed Not Available Not Available Not Available citalopra m 20 mg tablet TAKE 1 TABLET BY MOUTH DAILY 08/17 completed Not Available Not Available Not Available diphenhyd ramine 50 mg/mL injection solution 50 mg by injectio n route. 02/13 completed Not Available Not Available Not Available cyanocoba nathaniel (vit B-12) 500 mcg tablet Take 1 tablet every day by oral route. 09/29 completed Not Available Not Available Not Available OneTouch Ultra Test strips USE TO TEST BLOOD SUGAR FOUR TIMES DAILY 02/16 completed Not Available Not Available Not Available cephalexi n 500 mg capsule TAKE 1 CAPSULE BY MOUTH EVERY 12 HOURS FOR 5 DAYS 03/22 completed Not Available Not Available Not Available naproxen sodium 550 mg tablet active Not Available Not Available Not Available oseltamiv ir 75 mg capsule 08/26 completed Not Available Not Available Not Available triamcino lone acetonide 0.1 % topical ointment APPLY THIN LAYER TOPICALL Y TO THE AFFECTED AREA TWICE DAILY 01/25 completed Not Available Not Available Not Available polymyxin B sulfate 10,000 unit-trim ethoprim 1 mg/mL eye drops INSTILL ONE DROP INTO LEFT EYE TWICE A DAY. 03/22 completed Not Available Not Available Not Available fentanyl (PF) 50 mcg/mL injection solution 50 microgra ms by injectio n route. 02/13 completed Not Available Not Available Not Available Imitrex 6 mg/0.5 mL subcutane ous solution 6 mg by sub-q route. 02/13 completed Not Available Not Available Not Available folic acid 1 mg tablet 02/15 completed Not Available Not Available Not Available hydroxyzi ne HCl 25 mg tablet TAKE 1 TABLET 3 TIMES A DAY BY ORAL ROUTE. 03/22 completed Not Available Not Available Not Available sodium chloride 0.9 % intraveno us solution 1000 mL by intraven . route. 02/13 completed Not Available Not Available Not Available ergocalci ferol (vitamin D2) 1,250 mcg (50,000 unit) capsule Take 1 unit every week by oral route. 06/18 completed Not Available Not Available Not Available lorazepam 1 mg tablet Take 1 tablet twice a day by oral route as needed. active Not Available Not Available No t Available ibuprofen 600 mg tablet active Not Available Not Available Not Available methylpre dnisolone 4 mg tablets in a dose pack PLEASE SEE ATTACHED FOR DETAILED DIRECTIO NS 06/15 completed Not Available Not Available Not Available labetalol 100 mg tablet TAKE 3 TABLETS BY MOUTH TWICE A DAY 03/22 completed Not Available Not Available Not Available albuterol sulfate HFA 90 mcg/actua tion aerosol inhaler 02/15 completed Not Available Not Available Not Available hydroxyzi ne HCl 10 mg tablet Take 1 tablet every 4 hours by oral route as needed, for anxiety. active Not Available Not Available No t Available ondansetr on 4 mg disintegr ating tablet DISSOLVE 1 TABLET ON THE TONGUE EVERY 8 HOURS NEEDED FOR NAUSEA OR VOMITING 02/15 completed from [facility] Not Available Not Available Not Available sertralin e 50 mg tablet TAKE 1 TABLET BY MOUTH EVERY DAY AT DINNER 02/16 completed Not Available Not Available Not Available medroxypr ogesteron e 150 mg/mL intramusc ular suspensio n active Not Available Not Available Not Available doxycycli ne hyclate 100 mg tablet TAKE 1 TABLET BY MOUTH TWICE DAILY FOR 7 DAYS 01/25 completed Not Available Not Available Not Available naproxen 500 mg tablet TAKE 1 TABLET ORAL ROUTE 2 TIMES PER DAY TAKE WITH FOOD 02/15 completed Not Available Not Available Not Available metoclopr amide 10 mg tablet TAKE 1 TABLET BY MOUTH FOUR TIMES A DAY 03/22 completed Not Available Not Available Not Available amoxicill in 875 mg-potass ium clavulana te 125 mg tablet TAKE 1 TABLET BY MOUTH TWICE A DAY 06/15 completed Not Available Not Available Not Available hydroxyzi ne pamoate 25 mg capsule TAKE 1 CAPSULE BY MOUTH EVERY 4 HOURS NEEDED FOR ANXIETY 06/18 completed Not Available Not Available Not Available sumatript an 6 mg/0.5 mL subcutane ous pen injector PLEASE SEE ATTACHED FOR DETAILED DIRECTIO NS 03/22 completed Not Available Not Available Not Available medroxypr ogesteron e 150 mg/mL intramusc ular syringe active Not Available Not Available Not Available escitalop usman 10 mg tablet Take 1 tablet by mouth daily active Not Available Not Available No t Available cyclobenz aprine 5 mg tablet TAKE 1 TABLET BY MOUTH EVERY 8 HOURS 02/15 completed Not Available Not Available Not Available bupropion HCl XL 150 mg 24 hr tablet, extended release TAKE 1 TABLET BY MOUTH EVERY DAY IN THE MORNING 01/25 completed Not Available Not Available Not Available topiramat e 50 mg tablet Take 1 tablet twice a day by oral route for 30 days. active Not Available Not Available No t Available nitrofura ntoin monohydra te/macroc rystals 100 mg capsule TAKE 1 CAPSULE BY MOUTH EVERY DAY FOR 7 DAYS 03/22 completed Not Available Not Available Not Available duloxetin e 20 mg capsule,d elayed release Take 1 capsule every day by oral route. active Not Available Not Available No t Available duloxetin e 30 mg capsule,d elayed release TAKE 1 CAPSULE BY MOUTH EVERY DAY 09/14 completed Not Available Not Available Not Available aripipraz ole 2 mg tablet TAKE 1 TABLET BY MOUTH EVERY DAY AT BEDTIME FOR 30 DAYS active Not Available Not Available No t Available ondansetr on HCl (PF) 4 mg/2 mL injection solution 4 mg by injectio n route. 02/13 completed Not Available Not Available Not Available FeroSul 325 mg (65 mg iron) tablet TAKE 1 TABLET BY MOUTH EVERY DAY 02/15 completed Not Available Not Available Not Available butalbita l-acetami nophen-ca ffeine 50 mg-300 mg-40 mg capsule TAKE 1 CAPSULE BY MOUTH EVERY 6 HOURS NEEDED 03/22 completed Not Available Not Available Not Available Nexplanon 68 mg subdermal implant medicati on:Nexpl anon 68 mg Implant dose:0.0 route: frequenc y: active Not Available Not Available No t Available cefixime 400 mg capsule TAKE 1 CAPSULE BY MOUTH EVERY DAY DIRECTED FOR 5 DAYS 03/22 completed Not Available Not Available Not Available OneTouch Ultra2 Meter USE TO TEST BLOOD SUGAR FOUR TIMES DAILY 02/16 completed Not Available Not Available Not Available OneTouch Delica Plus Lancet 33 gauge 02/16 completed Not Available Not Available Not Available Nurtec ODT 75 mg disintegr ating tablet TAKE 1 TABLET BY MOUTH at first sign of migraine . No more than 1 tablet in 24 hours 06/18 completed PA denied by insuranc e Not Available Not Available Not Available Vitals Date Recorded Body height Body mass index (BMI) Body weight Body temperature Heart rate Oxygen saturation Pain severity - 0-10 verbal numeric rating [Score] - Reported Systolic And Diastolic Provider Name and Address Organization Details Last Updated DateTime 5 170.18 cm 22.7 kg/m2 82982.8 9 g 97.6 [degF] 66 /min 99 % 0 110/68 mm[Hg] Lisa Weaver MA [facility] 5 12:44:43 Date Recorded Body height Body mass index (BMI) Body weight Body temperature Heart rate Oxygen saturation Systolic And Diastolic Provider Name and Address Organization Details Last Updated DateTime 3 167.64 cm 29.5 kg/m2 46878.4 g 97.6 [degF] 88 /min 99 % 118/74 mm[Hg] Gissell Loza MA [facility] 3 11:12:28 Date Recorded Body height Body mass index (BMI) Body weight Body temperature Heart rate Oxygen saturation Systolic And Diastolic Provider Name and Address Organization Details Last Updated DateTime 3 167.64 cm 29.2 kg/m2 97490.2 2 g 97.6 [degF] 104 /min 98 % 116/74 mm[Hg] Gissell Loza MA [facility] 3 11:32:52 Date Recorded Body mass index (BMI) Body height Provider Name and Address Organization Details Last Updated DateTime 02/15/2023 29.2 kg/m2 167.64 cm JOSELUIS Maloney [address] [place] [address], [address], [facility] 02/15/2023 16:48:40 Date Recorded Body weight Body temperature Heart rate Oxygen saturation Systolic And Diastolic Provider Name and Address Organization Details Last Updated DateTime 3 26554.2 2 g 97.6 [degF] 88 /min 97 % 126/78 mm[Hg] Gissell Loza MA [facility] 3 15:44:59 Date Recorded Body weight Body mass index (BMI) Body height Body temperature Oxygen saturation Heart rate Systolic And Diastolic Provider Name and Address Organization Details Last Updated DateTime 10/24/202 4 11969.2 2 g 24.1 kg/m2 170.18 cm 98.3 [degF] 97 % 83 /min 140/80 mm[Hg] Flaco Bright CMA [place] [facility] 4 15:22:06 Social History Question Answer Notes LastModified by Organization Details LastModified Time Tobacco Smoking Status Never Smoker Not Available [employer] 07/28/2022 16:11:14 Do You Have An Advance Directive? No [id number].144 [id number] Information not available 07/28/2022 Do You Wear A Helmet When Biking? No Does Not Bike MIGRATION.468 [id number] Information not available 07/28/2022 What Is Your Level Of Caffeine Consumption? Moderate Information not available 08/26/2022 What Is Your Code Status? Full Code [id number] [id number] Information not available 07/28/2022 In The 14 Days Before Symptom Onset, Have You Had Close Contact With A Laboratory-conf irmed COVID-19 While That Case Was Ill? No MIGRATION.446 [id number] Information not available 07/28/2022 In The 14 Days Before Symptom Onset, Have You Had Close Contact With A Person Who Is Under Investigation For COVID-19 While That Person Was Ill? No MIGRATION.458 [id number] Information not available 07/28/2022 What Type Of Diet Are You Following? REGULAR MIGRATION.147 [id number] Information not available 07/28/2022 Which Illicit Or Recreational Drugs Have You Used? Marijuana Very Occasionally Information not available 08/26/2022 What Is The Highest Grade Or Level Of School You Have Completed Or The Highest Degree You Have Received? [id number] MIGRATION.150 [id number] Information not available 07/28/2022 Have There Been Any Changes To Your Family Or Social Situation? No MIGRATION.228 [id number] Information not available 07/28/2022 What Is The Fluoride Status Of Your Home? Unknown MIGRATION.709 [id number] Information not available 07/28/2022 Are There Any Guns Present In Your Home? No MIGRATION.926 [id number] Information not available 07/28/2022 Do You Use Insect Repellent Routinely? Yes MIGRATION.621 [id number] Information not available 07/28/2022 Where Do You Live? [place] MIGRATION.624 [id number] Information not available 07/28/2022 Do You Have A Medical Power Of Retirement Consultant? No MIGRATION.460 [id number] Information not available 07/28/2022 What Was The Date Of Your Most Recent Tobacco Screening? 06/18/2024 Information not available 06/18/2024 How Many Children Do You Have? 3 Information not available 06/18/2024 Do You Have Any Pets? No MIGRATION.581 [id number] Information not available 07/28/2022 What Is Your Relationship Status? Domestic Partner MIGRATION.269 [id number] Information not available 07/28/2022 Do You Use Your Seat Belt Or Car Seat Routinely? Yes MIGRATION.360 [id number] Information not available 07/28/2022 Do You Have Smoke And Carbon Monoxide Detectors In Your Home? Yes MIGRATION.416 [id number] Information not available 07/28/2022 Are You Passively Exposed To Smoke? No MIGRATION.250 [id number] Information not available 07/28/2022 Are There Any Smokers In Your House? No MIGRATION.828 [id number] Information not available 07/28/2022 Do You Use Sunscreen Routinely? Yes MIGRATION.938 [id number] Information not available 07/28/2022 Has Tobacco Cessation Counseling Been Provided? No N/a Information not available 08/26/2022 Have You Recently Traveled Abroad? No MIGRATION.473 [id number] Information not available 07/28/2022 Have You Used IV Drugs? No Information not available 08/26/2022 Do You Have Any Dietary Restrictions? No MIGRATION.836 [id number] Information not available 07/28/2022 Sex: Female Functional Status Question Answer Note LastModified by Organizat ion Details LastModified Time Do you use any illicit or recreational drugs? Yes Information not available 08/26/2022 Do you or have you ever used any other forms of tobacco or nicotine? No [id number] Information not available 07/28/2022 What is your level of alcohol consumption? None [id number] Information not available 07/28/2022 Are you currently employed? Yes Information not available 06/18/2024 What is your exercise level? None [id number] Information not available 07/28/2022 Mental Status Question Answer Note LastModified by Organizat ion Details LastModified Time Do you feel stressed (tense, restless, nervous, or anxious, or unable to sleep at night)? [id number] Information not available 07/28/2022 Family History Relationship Description Onset Age of this Age Resolved Age Notes LastModified by Organization Details LastModified Time Sister Heart disease MIGRATION.527 [id number] Not available 07/28/2022 16:11:19 Sister Diabetes mellitus MIGRATION.209 [id number] Not available 07/28/2022 16:11:20 Father Migraine MIGRATION.525 [id number] Not available 07/28/2022 16:11:20 Father Hypertensive disorder MIGRATION.847 [id number] Not available 07/28/2022 16:11:20 Mother Migraine MIGRATION.988 [id number] Not available 07/28/2022 16:11:20 Medical History Condition Response KIDNEY DISEASE Y HEADACHES/MIGRAINES Y Gynecological History Statement/Question Response How many live births 3 Date of Last Pap Current Control Method Implant Date of LMP 06/11/2024 Obstetrics History GPAL:G 3 P 3 0 0 3 Type Value Multiple Births 0 Full Term 3 Induced 0 Spontaneous 0 Premature 0 Living 3 Ectopics 0 Total 3 Immunizations Vaccine Type Date Status Note Provider Nam e and Address Organization Details Recorded Time meningococcal ACWY, unspecified formulation 8 completed Leilani Espinal APRN [address], [address], [place], [address], [facility] 03/02/2024 21:41:29 MMR 5 completed Leilani Espinal APRN [address], [address], [place], [address], [facility] 03/02/2024 21:41:29 Hep B, unspecified formulation 4 completed Leilani Espinal APRN [address], [address], [place], [address], [employer] [facility] 03/02/2024 21:41:29 Hep B, unspecified formulation 4 completed Leilani Espinal APRN [address], [address], [place], [address], [employer] [facility] 03/02/2024 21:41:29 OPV, trivalent 4 completed Leilani Espinal APRN [address], [address], [place], [address], [facility] 03/02/2024 21:41:29 OPV, trivalent 4 completed Leilani Espinal APRN [address], [address], [place], [address], [facility] 03/02/2024 21:41:29 OPV, trivalent 4 completed Leilani Espinal APRN [address], [address], [place], [address], [facility] 03/02/2024 21:41:29 DTP-Hib 4 completed Leilani Espinal APRN [address], [address], [place], [address], [facility] 03/02/2024 21:41:29 DTP-Hib 4 completed Leilani Espinal APRN [address], [address], [place], [address], [facility] 03/02/2024 21:41:29 DTP-Hib 5 completed Leilani Espinal APRN [address], [address], [place], [address], [facility] 03/02/2024 21:41:29 DTP-Hib 4 completed Leilani Espinal APRN [address], [address], [place], [address], [facility] 03/02/2024 21:41:29 HPV, bivalent 8 completed Leilani Espinal APRN [address], [address], [place], [address], [facility] 03/02/2024 21:41:29 HPV, bivalent 7 completed Leilani Espinal APRN [address], [address], [place], [address], [facility] [employer] [facility] 03/02/2024 21:41:29 HPV, bivalent 7 completed Leilani Espinal APRN [address], [address], [place], [address], [facility] [employer] [facility] [employer] [facility] 03/02/2024 21:41:29 Td (adult), 2 Lf tetanus toxoid, preservative free, adsorbed 8 completed Leilani Espinal APRN [address], [address], [place], [address], [facility] [employer] [facility] 03/02/2024 21:41:29 Hep A, unspecified formulation 5 completed Leilani Espinal APRN [address], [address], [place], [address], [facility] [employer] [facility] 03/02/2024 21:41:29 Hep A, unspecified formulation 4 completed Leilani Espinal APRN [address], [address], [place], [address], [employer] [facility] 03/02/2024 21:41:29 Influenza, split virus, trivalent, preservative 5 zhang Espinal APRN [address], [address], [place], [address], [facility] [employer] 03/02/2024 21:41:29 Past Encounters Encounter ID Performer Location Encounter Start Date Encounter Closed Date Diagnosis/Indication Diagnosis SNOMED-CT Code Diagnosis ICD10 Code Diagnosis IMO Codes Diagnosis Note [id number] Brandon starks MD [facility] [address] [facility] [address] [place] [address] 02/16/2021 00:00:00 02/16/2021 16:14:02 [id number] MD KATHERINE Stearns[facility] [place] [address] [place] [address] 09/14/2021 00:00:00 09/14/2021 16:59:09 [id number] Brandon starks MD [facility] Internal Med [facility] [address] [facility] [address] [place] [address] 01/25/2022 00:00:00 01/25/2022 13:08:04 [id number] Brandon starks MD [facility] Internal Med [facility] [address] [facility] [address] [place] [address] 08/26/2022 11:34:35 08/26/2022 12:11:10 Iron deficiency anemia 53626724 D50.9 check labs, is not regularly taking her iron supplement if still low, will consider hem/onc referral for iron infusion Migraine 22054494 G43.90 9 on sumatripta n prnhas seen neurology in the past, doesn't want to go backadd amitriptyl ine at hs for prophylaxi s, she is aware of side effects, risks, benefitsER if severe or if any neuro symptoms Generalize d anxiety disorder 13767878 F41.1 she self-stopp ed the wellbutrin , has tried many other meds, doesn't feel anything workscall office if any change in mood or behaviorge t appt with psychiatry - has been referred, she did not go Deviated nasal septum 12 7140380 J34.2 get appt with ENT- has been referred, she did not go Vitamin D deficiency 347 53063 E55.9 on supplement Vitamin B1 2 deficiency (non anemic) 41948948 E53.8 on supplement Lumbago with sciatica 20 3900395 M54.42 kenalog IM x1 todaystart medrol dose pack tomorrowge t appt with PTI did give her some sciatica exercises to do at home until she can see PTWill re-evaluat ed after she's done 6 weeks of PTER if worse Acute urin denny tract infection 743788217 N39.0 on keflex from ER- finish until gone Electrocar diogram abnormal 206730553 R94.31 get appt with cardiology back to ER if any chest pain recurs Screening for disorder 693538837 Z13.9 [id number] Brandon starks MD [facility] Internal Med Nicole soriano [address] , [place] [address] 09/29/2022 11:05:19 09/29/2022 11:54:02 Iron deficiency anemia 15560038 D50.9 now seeing hematology - Dr. Cisse upcoming iron infusion Migraine 51090529 G43.90 9 on sumatripta n prnhas seen neurology in the past, doesn't want to go backadd amitriptyl ine at hs for prophylaxi s, she is aware of side effects, risks, benefitsER if severe or if any neuro symptoms Generalize d anxiety disorder 16069643 F41.1 she self-stopp ed the wellbutrin , has tried many other meds, doesn't feel anything workscall office if any change in mood or behaviorge t appt with psychiatry - has been referred, she did not go Deviated nasal septum 12 0203391 J34.2 get appt with ENT- has been referred, she did not go Vitamin D deficiency 347 59755 E55.9 on supplement Vitamin B1 2 deficiency (non anemic) 98320053 E53.8 on supplement Lumbago with sciatica 20 9208816 M54.42 get appt with PTI did give her some sciatica exercises to do at home until she can see PTWill re-evaluat ed after she's done 6 weeks of PTER if worse Acute urin denny tract infection 433894192 N39.0 on keflex from ER- finish until gone Electrocar diogram abnormal 933741336 R94.31 was in ER- had incomplete bundle branch blockhas been referred to cardiology - Dr. Mcgrath- she did not gostrongly encouraged her to make appt Corneal abrasion 3458144 2 S05.00XA Has upcoming superficia l keratectom y- she is clear from PCP perspectiv e but does need to get her appt with cardiology for further eval [id number] Brandon starks MD [facility] Internal Med [address] [place] [address] 10/11/2022 11:26:37 10/11/2022 11:44:42 Iron deficiency anemia 14789973 D50.9 now seeing hematology - Dr. Cisse upcoming iron infusion Migraine 92271881 G43.90 9 on sumatripta n prnhas seen neurology in the past, doesn't want to go backadd amitriptyl ine at hs for prophylaxi s, she is aware of side effects, risks, benefitsER if severe or if any neuro symptoms Generalize d anxiety disorder 90071263 F41.1 she self-stopp ed the wellbutrin , has tried many other meds, doesn't feel anything workscall office if any change in mood or behaviorge t appt with psychiatry - has been referred, she did not go, wants anothe referral Deviated nasal septum 12 8336869 J34.2 get appt with ENT- has been referred, she did not go, wants another referral Vitamin D deficiency 347 93320 E55.9 on supplement Vitamin B1 2 deficiency (non anemic) 28742858 E53.8 on supplement Lumbago with sciatica 20 1163742 M54.42 was referred to PT- did not goshe reports symptoms now resolved Electrocar diogram abnormal 144155341 R94.31 was in ER- had incomplete bundle branch blockhas been referred to cardiology - Dr. Mcgrath- she did not gostrongly encouraged her to make appt Corneal abrasion 5059721 2 S05.00XA s/p superficia l keratectom yhas another appt with surgeon next week [id number] Matilde Sher NP [facility] [address] [facility], [address] [place] [address] 11/18/2022 16:52:59 11/22/2022 11:35:18 [id number] Brandon starks MD [facility] Internal Med [address] [place] [address] 02/15/2023 14:57:40 02/15/2023 16:29:31 Adult health examination 576058766 Z00.01 Iron defic iency anemia 06495014 D50.9 now seeing hematology - Dr. Chapman Migraine 64982110 G43.90 9 on sumatripta n prntried amitriptyl ine- did not helpwill try topiramate for preventati ve- she is aware of side effects, risks, benefitsge t MRIget appt with neurologyE R if severe or if any neuro symptoms Generalize d anxiety disorder 93737493 F41.1 she self-stopp ed the wellbutrin , has tried many other meds, doesn't feel anything workscall office if any change in mood or behaviorge t appt with psychiatry - has been referred, she did not go, encouraged her to make appt Deviated nasal septum 12 2850010 J34.2 get appt with ENT- has been referred, she did not go, wants another referral Vitamin D deficiency 347 91669 E55.9 on supplement Vitamin B1 2 deficiency (non anemic) 00487167 E53.8 on supplement Electrocar diogram abnormal 181833125 R94.31 was in ER- had incomplete bundle branch blockfollo cardiology - Dr. Shah Butterfly rash 25645541 R21 check ANAif CLAUDIA normal, will plan for derm referral Diabetes m ellitus screening 988708443 Z13.1 Hyperlipid emia screening 598992765 Z13.220 Depression screening 171 216745 Z13.31 Body mass index 25-29 - overweight 734622400 Z68.29 recommend healthy, well balanced mealsfocus on lean meats, fresh vegetables , fresh fruits, whole grainsredu ce fast/proce ssed foods or eating out to no more than 1-2 times per weekaim to get 30 min of exercise most days of the week- walking is a great choicealso recommend resistance training 2-3 times per week [id number] Brandon starks MD [facility] [address] [facility] [place] [address] 03/22/2024 15:07:30 03/22/2024 15:52:58 Vitamin D deficiency 43021352 E55.9 Vitamin B1 2 deficiency (non anemic) 91828271 E53.8 Iron defic iency anemia 02495248 D50.9 Diabetes m ellitus screening 579333536 Z13.1 Hyperlipid emia screening 144115272 Z13.220 Screening for disorder 572626721 Z13.9 Thyroid di sorder screening 111046173 Z13.29 Hepatitis C screening 41 2205774 Z11.59 Attention deficit hyperactivity disorder 027374625 F90.9 Migraine 80144193 G43.90 9 Polyp of nasal cavity 73 5285016 J33.0 [id number] Matilde Sher NP [facility] [address] [facility], [address] [place] [address] 06/21/2024 14:41:30 06/21/2024 17:02:37 [id number] Brandon starks MD [facility] Internal Med [address] [place] [address] 06/18/2024 12:15:00 06/18/2024 13:48:06 Adult health examination 573092450 Z00.00 Tuberculos is screening 726205541 Z11.1 Generalize d anxiety disorder 40541232 F41.1 Health Concerns Section Related Observation LastModified by Organization Detai ls LastModified Time None Recorded Concern Status LastModified by Organization Details LastModified Time None Recorded Advance Directives Directive N: Payers Insurance Date Sequence Insurance Name Policy Number Policy Wilson Covered Member ID Wilson Member ID Guarantor Name 02/27/2025 1 [facility] - DOS ON OR AFTER 20 (MEDICAID REPLACEMENT - HMO) Cullen Frias [id number] Cullen Frias Notes Date Note Type Note Provider Name and Address Organization Details Recorded Time 09/29/2022 text/html Cullen presents today for surgical clearance. SHe is having a superficial keratectomy later today with Dr. Barajas. She will be awake, but will have some conscious sedation. She reports she has a corneal flap that is torn and will not heal. Last visit I saw her, she had been to the ER several times for chest pain and had an EKG with an incomplete bundle branch block. The ER referred her to cardiology, but she was not able to make that appointment. I had also referred her to cardiology. She tells me today she has not yet made that appointment. Today she denies any chest pain, palpitations, or shortness of breath. She is feeling well overall, with the exception of having some anxiety over the procedure. Francoise Stern, RICKI-C [address] [facility], [address], [place], [address], [facility] [employer] [facility] 09/29/2022 11:27:32 10/11/2022 text/html Cullen presents today for follow up. She was able to get her corneal surgery done. She did have an appointment with them last week and they removed the contact. She follows up with them again in a week. She reports she is still having a little bit of blurry vision but she reports they told her this was normal and will get better over time. We had also referred her to PT for the sciatica. She tells me she never went to PT. She reports the sciatic pain is now resolved. We had also were again referred her to the pipe layer. She still has not made that appointment. She tells me she needs another copy of the referral. We had also referred her to the psychiatrist. She also has not made that appointment. She tells me she needs another copy of that referral. She denies any SI or HI today. She was also referred to the ENT for her deviated septum. She tells me she still wants to get this done and would also need another referral for that as well. Francoise Stern, HAND HOSE CUTTER-C [address] [facility], [address], [place], [address], [facility] [employer] [facility] 10/11/2022 13:59:28 02/15/2023 text/html Cullen presents today for follow up. She missed her last appt. She is also due for annual wellness exam. She continues to have issues with migraines. They've been occurring for years. She reports that the last 9 days, she has had migraines most of the day. She reports after she takes a dose of sumatriptan they go away for a little bit but then they come right back. She was in the ER earlier this week and was given a migraine cocktail which did help, but she reports the migraine came back after. She reports today they are improving. She is feeling little bit better. She denies that this is the worst headache of her life. Last visit I had tried some amitriptyline for migraine prevention, that did not help. She has previously seen the neurologist but did not want to go back, but at this point she clearly needs to see them. She does not think she has ever tried Topamax. She continues to have issues with her deviated septum and chronic sinus issues. She is thinking some of this is causing some of her migraine issues. I had previously given her referral to ENT, however she was not able to make that appointment. She would like another referral. She reports she often has a butterfly rash across her nose. She has brought a picture to show me today. She has makeup on today so it is not really visible on her face but can be seen in the photo. She is requesting to be tested for lupus. We have referred her multiple times to the psychiatrist, she has not gone. She denies any SI or HI today. Francoise Stern, HAND HOSE CUTTER-C [address] [facility], [address], [place], [address], [facility] [employer] 02/15/2023 16:50:41 03/22/2024 text/html Cullen presents today to establish care. She states that she had high blood pressure after she had her baby. She believes that she has ADHD as she is unable to accomplish tasks, maintain organization, and poor time management. 02/15/2023Cullen presents today for follow up. She missed her last appt. She is also due for annual wellness exam. She continues to have issues with migraines. They've been occurring for years. She reports that the last 9 days, she has had migraines most of the day. She reports after she takes a dose of sumatriptan they go away for a little bit but then they come right back. She was in the ER earlier this week and was given a migraine cocktail which did help, but she reports the migraine came back after. She reports today they are improving. She is feeling little bit better. She denies that this is the worst headache of her life. Last visit I had tried some amitriptyline for migraine prevention, that did not help. She has previously seen the neurologist but did not want to go back, but at this point she clearly needs to see them. She does not think she has ever tried Topamax. She continues to have issues with her deviated septum and chronic sinus issues. She is thinking some of this is causing some of her migraine issues. I had previously given her referral to ENT, however she was not able to make that appointment. She would like another referral. She reports she often has a butterfly rash across her nose. She has brought a picture to show me today. She has makeup on today so it is not really visible on her face but can be seen in the photo. She is requesting to be tested for lupus. We have referred her multiple times to the psychiatrist, she has not gone. She denies any SI or HI today. Leilani Espinal APRN [address], [facility] [address], [place], [address], [employer] 03/22/2024 15:49:10 06/18/2024 text/html Cullen presents today for annual physical. Patient states that she was seen in last week due to sinus infection. She states that they also put her on a Medrol dose pack because of lung congestion. 03/22/2024Cullen presents today to establish care. She states that she had high blood pressure after she had her baby. She believes that she has ADHD as she is unable to accomplish tasks, maintain organization, and poor time management. Leilani Espinal APRN [address], [place], [address], [employer] 06/18/2024 13:06:20 OBGyn Episode No OBEpisode recorded.
--- OUTSIDE RECORDS SUMMARY | 2025-05-26 15:07 | XMS_ITS | Clinical Summary ---
Author Organization [facility] Address [address] [place] [address] Phone Care Team Providers Care Toe Sewer Name Role Phone Drake Angeles MD Primary Care Provider Allergies No known active allergies Medications amitriptyline (ELAVIL) 10 MG Tablet Take 1 Tab by mouth nightly. 30 Tab 2 05/09/2018 Active SUMAtriptan (IMITREX) 100 MG Tablet TAKE 1 TABLET BY MOUTH NEEDED FOR MIGRAINE. MAY REPEAT DOSE IN 2 HOURS IF MIGRAINE PERSISTS 9 Tab 06/15/2018 Active Active Problems Problem Noted Date Diagnosed Date Intractable migraine with aura without status mi grainosus 01/24/2018 Social History Tobacco Use Types Packs/Day Years Used Date Smoking Tobacco: Never Smokeless Tobacco: Never Tobacco Cessation:Counseling Given: No Alcohol Use Standard Drinks/Week Comments No 0 (1 standard drink = 0.6 oz pur e alcohol) Sexually Active Control Partners Comments Yes Comments No Sex and Gender Information Value Date Recorded Sex Assigned at Not on file Legal Sex Female 11:18 AM CDT Gender Identity Not on file Sexual Orientation Not on file Last Filed Vital Signs Vital Sign Reading Time Taken Comments Blood Pressure 116/80 01/24/2018 9:48 AM CDT Pulse 115 01/24/2018 9:48 AM CDT Temperature 36.6 C (97.9 F) 01/24/2018 9:48 AM CDT Respiratory Rate 16 01/24/2018 9:48 AM CDT Oxygen Saturation 98% 01/24/2018 9:48 AM CDT Inhaled Oxygen Concentration - - Weight 74.3 kg (163 lb 12.8 oz) 01/24/2018 9:48 AM CDT Height 170.2 cm (5' 7) 01/24/2018 9:48 AM CDT Body Mass Index 25.65 01/24/2018 9:48 AM CDT Plan of Treatment Health Maintenance Due Date Last Done Comments Hepatitis C Virus (HCV) Screening 1993 TdaP Immunization 1993 Hepatitis B Immunization (3 of 3 - 3-dose series) 02/05/1994 1993, 1993 Varicella Immunization (1 of 2 - 13+ 2-dose series) 2006 Pap Smear 2014 Cervical Cancer Screening (CCS) 08/06/2023 HPV/Cotest 08/06/2023 Influenza Immunization (#1) 2025 03/03/2015 SARS-COV-2 Immunization ( season) 2025 Respiratory Syncytial Virus (RSV) Immunization (Adult) (1 - 1-dose 75+ series) 2068 Human Papillomavirus (HPV) Immunization Completed 06/12/2007, 02/10/2007, 12/06/2006 Meningococcal Immunization (ACWY) Aged Out 06/12/2007 No longer eligible based on patient's age to complete this topic DTaP/Tdap/Td Immunization Discontinued 2007, 02/11/1995, 03/09/1994, Additional history exists Pneumococcal Immunization Combined Aged Out No longer eligible based on patient's age to complete this topic Rotavirus Immunization Aged Out No lo nger eligible based on patient's age to complete this topic Insurance [place]ID [place] Care Teams Toe Sewer Relationship Specialty Start Date End Date Drake Angeles MD [address] [address] PCP - General Family Medicine 01/24/18
--- OUTSIDE RECORDS SUMMARY | 2025-05-26 15:07 | XMS_ITS | Clinical Summary ---
Author Organization [facility] lin Address [address] [place] [address] Care Team Providers Care Maintenance Mechanic Telephone Name Role Phone Pcp, No Primary Care Provider [phone] Social History Tobacco Use Types Packs/Day Years Used Date Smoking Tobacco: Never Assessed Comments Unknown Sex and Gender Information Value Date Recorded Sex Assigned at Not on file Legal Sex Female 6:13 PM EST Gender Identity Not on file Sexual Orientation Not on file Plan of Treatment Not on file Medical Devices Not on file Care Teams Maintenance Mechanic Telephone Relationship Specialty Start Date End Date PcpAngelica PCP - General Family Medicine 06/12/20
--- OUTSIDE RECORDS SUMMARY | 2025-05-26 15:07 | XMS_ITS | Encounter Summary ---
Author Organization [facility] Address [address] [place] [address] Care Team Providers Care Certified Vehicle Fire Investigator Name Role Phone [facility] ([facility] Primary Care Provi julio cesar Reason for Visit * Reason Onset Date Comments Hospital Follow-up 02/18/2011 Encounter Details Date Type Department Care Team (Late st Contact Info) Description 02/18/2011 Telephone ER at [address] [address] Pura Pearce RN Hospital Follow-up Social History Tobacco Use Types Packs/Day Years Used Date Smoking Tobacco: Never Assessed Comments Unknown Sex and Gender Information Value Date Recorded Sex Assigned at Not on file Legal Sex Female 5:38 AM AMBULATORY CARE NURSE Gender Identity Not on file Sexual Orientation Not on file documented as of this encounter Miscellaneous Notes * Telephone Encounter - Pura Pearce RN - 02/18/2011 10:37 AM CDT Spoke with pt at [phone]; mother is unavailable at moment. Pt states she feels a little better. No dysuria; no further emesis. Left F/U number of [phone] for mom to call if questions. documented in this encounter Plan of Treatment Not on file documented as of this encounter Visit Diagnoses Not on filedocumented in this encounter Care Teams Certified Vehicle Fire Investigator Relationship Specialty Start Date End Date [facility] ([facility]) [address] [place] [address] PCP - General 06/26/10 documented as of this encounter
[2025-05-26 15:20] VITALS: BP 121/70; PULSE 91; RESP 16; TEMP 36.4; O2SAT 100
== END 2025-05-26 19:15 | disposition left against medical advice (07) ==
LOC: ANHED 17:41
DX: Z53.21 Procedure and treatment not carried out due to patient leaving prior to being seen by health care provider (principal)
CPT/HCPCS: 99199